=== PATIENT | female | born 1945 | race Caucasian/White ===

== ENCOUNTER 2018-11-08 18:23 | Emergency (ER) | payer MEDICARE, SELFPAY ==
[2018-11-08 18:24] VITALS: BP 166/71; PULSE 65; PULSE 68; RESP 16; RESP 18; TEMP 36.8; O2SAT 93; BMI 19.8
--- NOTE | 2018-11-08 20:08 | CT_ITS ---
STUDY: CT BRAIN WITHOUT CONTRAST REASON FOR EXAM: Female, 73 years old. FALL, ETOH, FOUND FACE DOWN IN DRIVEWAY WITH BRUISING AND BLEEDING OF FACE RADIATION DOSAGE (If Supplied By Facility): CTDIvol = ( 44.99 ) mGy, DLP = ( 762.36 ) mGycm TECHNIQUE: Transaxial CT imaging of the brain was performed without administration of intravenous contrast material. Individualized dose optimization techniques were used for this CT. COMPARISON: No relevant priors. FINDINGS: There is localized soft tissue swelling of the anterior scalp. Normal calvarium. There is mild cerebral atrophy with widening of the extra-axial spaces and ventricular dilatation. There are areas of decreased attenuation within the white matter tracts of the supratentorial brain, consistent with microvascular disease changes. Normal basal ganglia and thalami. Normal brainstem. Normal cerebellum. There is no intracranial hemorrhage. There are no findings of an acute ischemic infarction. Normal visualized paranasal sinuses. CT/Brain/Head without Contrast IMPRESSION: 1. No acute intracranial hemorrhage or mass effect. 2. Frontal scalp soft tissue swelling/hematoma. No underlying fracture Electronically Signed: Joseph Richmond MD (Brooks) at 20:37 EDT , Service support ,
[2018-11-08 20:34] VITALS: BP 176/74; PULSE 61
[2018-11-08] MEDS: Diphth,Pertuss(Acell),Tet Vac 0.5 ML Vial IM (20:35)
--- NOTE | 2018-11-08 21:14 | ED.VISSUMM ---
- ER Visit Summary Date of Service: 11/08/18 Chief Complaint: Fall History of Present Illness: The patient is a 73 F who presents with a fall that occurred today. Patient does not remember how she fell. She fell forward into the driveway. Patient landed on her face. The family that is here soraida was not there to witness the fall. Patient thinks she did have a brief loss of consciousness after the fall. Patient denies any paresthesias or weakness. Patient denies any nausea or vomiting. Patient denies any palpitations or lightheadedness prior to the fall. Physical Examination: Vital signs are stable. Patient is afebrile. Patient is in no acute distress. Cranial nerves II through XII are intact. There are no focal motor or sensory deficits noted. There is a hematoma of the forehead in the midline. There is an abrasion across the bridge of the nose. There is no active bleeding noted. There is also a contusion on the chin. Pupils are equal, round, and reactive to light bilaterally. Extraocular muscles are intact. Tympanic membranes are clear bilaterally with no hemotympanum. Nasal mucosa is pink and moist. There is no septal deviation or septal hematoma. Neck is supple. Trachea is midline. There is no JVD noted. Heart was regular rate and rhythm. Lungs are clear and equal bilaterally. Abdomen is soft and nontender. Test Results: CT scan of the brain was obtained. There is no acute intracranial abnormality. There is no fracture noted. This was interpreted by the radiologist myself. Emergency Department Course and Treatment: Patient was given a tetanus booster. Bacitracin dressing was applied to the nasal abrasion. Patient was instructed to use ice to the area. Patient was instructed to follow-up with her primary care physician in 5 to 7 days. Patient and family understood and were agreeable with the plan. All questions were answered. Disposition: Discharge home Impression: 1. Facial contusion 2. Nasal abrasion 3. Closed head injury This note was generated with [employer] dictation software. It may contain incorrect words, spelling, and punctuation that were not noted in review of the chart prior to signing ED Disposition - Plan for ED Patient: Disposition: Home or Assisted Living Diagnosis: Facial contusion, Nasal abrasion, Closed head injury Instructions: FALL, Uncertain Cause, HEAD INJURY, No Wake-Up (Adult), FACIAL CONTUSION, No Wakeup, Abrasion Referrals: Rio Oconnor MD [Primary Care Provider] - 3-5 Days
== END 2018-11-08 21:42 | disposition home or self-care (01) ==
PROVIDERS: Emergency Provider Emergency Medicine; Family Provider Family Medicine; PCP Family Medicine
DX: S00.31XA Abrasion of nose, initial encounter (principal); S00.83XA Contusion of other part of head, initial encounter; S09.90XA Unspecified injury of head, initial encounter; W18.30XA Fall on same level, unspecified, initial encounter; Y93.9 Activity, unspecified; Y92.89 Other specified places as the place of occurrence of the external cause; Y99.9 Unspecified external cause status
CPT/HCPCS: 70450; 90471; 90715; 99283

== ENCOUNTER 2020-01-15 13:30 | Outpatient (RCR) | payer MEDICARE, SELFPAY ==
--- NOTE | 2020-01-05 17:10 | HP.PTEVAL_ITS ---
Patient's Visit Information CURTIS JOLLY is a 74 year old F referred to Physical Therapy by TERRIE OLIVIER with a diagnosis of Gait instability. Date of Evaluation: 01/05/20 Physical Therapist: Johnnie Mcintyre, KEYURT, OCS, CSCS - Visit Plan Frequency: 2x /Week Duration: 4-6 Weeks Plan: 2x/week for 4 weeks for ... 1. gait training(pt to bring her walker). 2. Teach LE sink exercises and balance ex and get I at home. - Subjective Doesn't want to be here. Sees neurologist for dementia. Has not seen anybody for walking. No falls because she doesn't get out of chair. Spends day in chair watching tV. No exercises. No spinning. No numbness in legs. Walks to kitchen 20 feet max on own and has never fallen recently. Lives with dtr for the last year. Is on the first floor adn a couple to get in but leaves house very little and has help. SPINNING DOFFER with ambulation. Exhausted. Dresses self minus confusion. Bathroom on own. Sower with help in and out of the tub. Back hurts sometimes. - Objective A&O not place, yes date, yes name. Walks with SPINNING DOFFER from dtr with short choppy steps and fatigues easy, very dangerous. Uses cane but drags it and not safe. With wh walker is safest but still needs VC to take long steps and not let walker get out in fornt of her. Min A with cane and no aD, CGA with walker. Sit to stand I. stand to sit I. Stands in place with good balance, movmeent is the problem. Tired after 250 feet of walking. Strength of LE is 4-/5., Motor control in ankles with ev/inv is poor, aROM is WNL. HS and gastroc max tight at -40 90/90 test and 0 DF B. reflexes 2/3 patella and achilles. Sensation WNl to gross light touch. coordination to reciprocal toe tap minor deficits. Pt unable to tolerate FGA today as is unsafe and needs cues just to walk. - Goals Goal 1:: I appropr HEP to minimize future problems(LE strength adn baalnce adn walking) Goal Time Frame: 4-6 Weeks Goal 2:: Pt able to tolerate FGA and score 21/30 Goal Time Frame: 4-6 Weeks Goal 3:: Dtr and pt feel 50% improved in mobility safety. Goal Time Frame: 4-6 Weeks Goal 4:: Pt walk into and out of PT with appropriate AD mod I. Goal Time Frame: 4-6 Weeks Goal 5:: 25/80 LEFS score Goal Time Frame: 4-6 Weeks - Rehabilitation Potential Physical Therapy Diagnosis: Gait instability. Rehabilitation Potential: Fair - Anticipated Interventions Patient/Client Instruction: Educate patient on: Condition, Plan of Care For the Purpose of:: To improve muscle performance and motor function, To increase tolerance to activity/condition/position, To improve gait and locomotor functions Therapeutic Exercise to Include: Strength training, Flexibilty training, Gait and locomotor training, Neuromotor development For the Purpose of:: To improve muscle performance and motor function, To improve ability of physical actions for home/community/work/leisure, To improve gait and locomotor functions, To improve safety Thank you for the opportunity to evaluate your patient. For Medicare and Medicare HMO plans, please review the plan of care and approve it. It will need to be FAXED BACK to us at [phone] for Medicare purposes. For Medicare only, by signing this I certify the plan of care. Please let me know if there are questions or concerns regarding this plan of care. Physician Signature: Date:
--- NOTE | 2020-03-11 15:08 | HP.PTDCNRP_ITS ---
CURTIS JOLLY was seen in my office for initial evaluation on 01/05/20. The following Plan of Care was established for this patient: Initial Frequency: 2x /Week Initial Duration: 4-6 Weeks Patient/Client Instruction: Educate patient on: Condition, Plan of Care For the Purpose of:: To improve muscle performance and motor function, To increase tolerance to activity/condition/position, To improve gait and locomotor functions Therapeutic Exercise to Include: Strength training, Flexibilty training, Gait and locomotor training, Neuromotor development For the Purpose of:: To improve muscle performance and motor function, To i mprove ability of physical actions for home/community/work/leisure, To improve gait and locomotor functions, To improve safety This patient was last seen in our office 01/15/20. Pertinent comments regarding their Physical therapy will appear below: Pt seen 3 visits of POC and cancelled the rest of them. At this point, it has been nearly two months and I will discontinue due to nonattendance. At this point I will be discontinuing this patient from physical therapy. I would be happy to see this patient again in the future if found appropriate by the physician. Thank you! Johnnie Mcintyre, DPT, OCS, CSCS
== END 2020-01-15 19:00 | disposition home or self-care (01) ==
LOC: PT 13:30
PROVIDERS: PCP Family Medicine
DX: R26.81 Unsteadiness on feet (principal)
CPT/HCPCS: 97110; 97162

== ENCOUNTER 2023-02-17 16:11 | Inpatient (IN) | payer MEDICARE, SELFPAY ==
[2023-02-17 16:12] VITALS: BP 90/65; PULSE 114; RESP 19; TEMP 36.6; O2SAT 97
[2023-02-17 16:15] VITALS: BP 96/67
--- NOTE | 2023-02-17 19:23 | EX.ED.DYSGE1 ---
HPI History of Present Illness Chief Complaint: General Illness Narrative Narrative: 77-year-old female presenting with her mother concern for diarrhea. She had 2 episodes today. Daughter reports that she has been feeling good for couple of days and has been laying around. She has been eating and drinking is much. Daughter states that she complained of diarrhea today and had 2 episodes. Daughter help her clean up in the shower. Patient has not had any recent antibiotics. No fevers at home. No abdominal pain, chest pain. She has a mild cough but no dyspnea. The patient's daughter reports that her was sick this week with a viral illness. She does not know of any symptoms that he had but he slept a lot. Patient's daughter states that her recovered. He was not tested for anything. [facility] Medical History (Updated 02/18/23 @ 00:[address] Renetta Stein MD) Anxiety and depression Carotid disease, bilateral COPD (chronic obstructive pulmonary disease) Dementia Former tobacco use History of GI bleed History of TIAs HLD (hyperlipidemia) HTN (hypertension) Stage 3b chronic kidney disease (CKD) Home Medications alprazolam 0.25 mg tablet 0.25 mg PO DAILY PRN Anxiety 11/08/18 [History Last Taken Unknown] aspirin 81 mg chewable tablet 81 mg PO DAILY@0800 11/08/18 [History Last Taken Unknown] atenolol 25 mg tablet 25 mg PO DAILY 11/08/18 [History Last Taken Unknown] atorvastatin 80 mg tablet 80 mg PO DAILY 11/08/18 [History Last Taken Unknown] citalopram 40 mg tablet 40 mg PO DAILY 11/08/18 [History Last Taken Unknown] lisinopril 10 mg tablet 10 mg PO DAILY 11/08/18 [History Last Taken Unknown] Allergy/AdvReac Type Severity Reaction Status Date / Time No Known Allergies Allergy Verified 02/17/23 16:12 Family History (Updated 02/17/23 @ 22:[address] Renetta Stein MD) Mother Kidney disease Father Lymphoma Surgical History (Updated 02/17/23 @ 22:[address] Renetta Stein MD) History of carotid endarterectomy History of shoulder surgery Previous back surgery Social History (Updated 02/17/23 @ 22:[address] Renetta Stein MD) household members: none Smoking Status: Former smoker how long ago did patient quit smoking: Smoked 1.5 pack/day quitting 09/23/2007, smoked 40 years. alcohol intake: current alcohol intake frequency: 0-2 drinks per day substance use type: does not use ROS ROS ED Constitutional Constitutional ED: Denies chills, fever(s) or sweats Eyes Eyes: Denies blurry vision or change in vision ENT ENT ED: Denies ear pain, rhinorrhea or sore throat Cardiovascular Cardiovascular: Denies chest pain, palpitations or racing heartbeat Respiratory/Chest Respiratory/Chest: Reports cough; Denies dyspnea or sputum Gastrointestinal Gastrointestinal: Reports diarrhea; Denies abdominal pain, constipation or vomiting Genitourinary Genitourinary ED: Denies dysuria, hematuria or urinary frequency Musculoskeletal Musculoskeletal: Denies arthralgias, myalgias or neck pain Integumentary Denies abscess, Abrasions or rash Neurologic Neurologic: Denies headache(s), paresthesias or weakness Psychiatric Psychiatric: Denies anxiety, depression, suicidal ideation or suicidal thoughts Endocrine Endocrinology: Denies polydipsia or polyuria EXAM Physical Exam Const Vital Signs: 02/17/23 16:12 02/17/23 16:15 02/17/23 19:37 Temperature 97.8 F Temperature Source Temporal Pulse Rate 114 H Respiratory Rate 19 H Respiratory Effort Normal Respiratory Pattern Normal Blood Pressure 90/65 96/67 Blood Pressure Mean 73 76 Pulse Ox 97 Oxygen Delivery Method Room Air Oxygen Flow Rate (L/min) 02/17/23 21:06 02/17/23 21:09 02/17/23 23:36 Temperature 99.1 F Temperature Source Oral Pulse Rate 87 95 Respiratory Rate 22 H 22 H Respiratory Effort Respiratory Pattern Blood Pressure 136/74 H 150/78 H Blood Pressure Mean 94 102 Pulse Ox 84 100 94 Oxygen Delivery Method Room Air Nasal Cannula Room Air Oxygen Flow Rate (L/min) 2 Positive well nourished General Appearance ED: NAD; Negative for pallor HEENT Reports moist mucous membranes Eyes PERRL and EOMs intact bilaterally General Eye ED: Negative for pale conjunctiva or scleral icterus Neck no lymphadenopathy Chest Wall inspection of chest normal Resp normal respiratory effort Auscultation: Negative for rales, rhonchi or wheezes Cardio regular rate and regular rhythm GI normal to inspection, nondistended, normoactive bowel sounds Neuro oriented x3 and CN's II-XII intact bilaterally Sensorium / Orientation: alert Psych mental status grossly normal Skin no rashes or lesions noted General Skin Exam: Negative for jaundice or pallor MDM MDM MDM Narrative Medical decision making narrative: Patient presented with generalized weakness and diarrhea that started today. She does have any chest pain. She is not nauseous. Differential includes COVID, influenza, dehydration, electro normalities. CBC was obtained to assess white blood cell count, hemoglobin, platelets. BMP to assess renal function and electrolytes. Urinalysis to assess for UTI. There was a delay in collecting the urine. We did obtain a chest x-ray which showed no acute process. Patient was given IV fluids. Nursing staff did attempt to straight cath the patient and they had received no urine. Chest x-ray my interpretation is no acute process. COVID and influenza are negative. Since the patient has now become hypoxic and requiring oxygen I obtained a CT scan without contrast due to patient's renal function and this shows concern for endobronchial infection. Ambulated patient in the hallway however she had 2 people assist her and she could barely walk by herself. She refused to let go of the 2 staff that were holding her. Her pulse ox was down to 88%. Given this I will have her admitted to the hospital. Impression: 1. Diarrhea 2. Hypoxia 3. Debility 4. ANJU Lab Data Labs: Laboratory Results - last 24 hr 02/17/23 02/17/23 00:00 19:20 WBC 7.3 RBC 4.46 Hgb 12.8 Hct 41.8 MCV 93.7 MCH 28.7 MCHC 30.6 L RDW Std Deviation 45.0 H RDW Coeff of Ed 13.1 Plt Count 204 MPV 11.0 Sodium 139 Potassium 4.0 Chloride 102 Carbon Dioxide 26.0 Anion Gap 11 BUN 29 H Creatinine 2.43 H Estim Creat Clear Calc 15.51 Est GFR (MDRD) Af Amer 25 L Est GFR (MDRD) Non-Af 21 L BUN/Creatinine Ratio 11.9 Glucose 134 H Calcium 9.8 Urine Color Yellow Urine Clarity Clear Urine pH 6.0 Ur Specific [place] 1.020 Urine Protein 100 H Urine Glucose (UA) 50 H Urine Ketones 15 H Urine Occult Blood 250 H Urine Nitrite Negative Urine Bilirubin 1 H Urine Urobilinogen Normal Ur Leukocyte Esterase 500 H Radiography Diagnostic Testing: Clinical Impression(s) from Imaging Studies Chest X-Ray 02/17/23 19:40 IMPRESSION: There are no acute findings. Electronically Signed: Mitchell Rowland MD at 20:13 EST , Chest CT 02/17/23 22:19 IMPRESSION: Scattered endobronchial debris and peribronchial opacities suggesting endobronchial spread of infection. Left lower lobe volume loss likely representing partial lung resection left lower lobe. Dense calcifications right internal carotid artery suspicious for possible stenosis. Sliding hiatal hernia. Appearance suggesting low bone mineral density. Correlate with bone densitometry. Electronically Signed: Frank Black DO at 23:49 EST , Discharge Plan Triage Chief Complaint: General Illness ED Provider: Deshawn Colvin Dx/Rx/DC Orders Prescriptions: No Action atorvastatin 80 MG tablet 80 mg PO DAILY citalopram 40 MG tablet 40 mg PO DAILY atenolol 25 MG tablet 25 mg PO DAILY alprazolam 0.25 MG tablet 0.25 mg PO DAILY PRN (Reason: Anxiety) lisinopril 10 MG tablet 10 mg PO DAILY aspirin 81 MG tablet,chewable 81 mg PO DAILY@0800 Primary Care Provider: Rio Oconnor Referrals: Rio Oconnor MD [Primary Care Provider] -
[2023-02-17] MEDS: 0.9% Normal Saline (1000mL) 1,000 ML 1000 ML IV (19:35)
[2023-02-17 19:37] VITALS: BMI 18.6
--- NOTE | 2023-02-17 19:40 | RAD_ITS ---
STUDY: XR Chest 1 View 02/17/2023 7:39 PM REASON FOR EXAM: Female, 77 years old. cough COMPARISON: None TECHNIQUE: XR Chest 1 View FINDINGS: There is no demonstrated pleural abnormality. Right shoulder arthroplasty. Normal heart size. Calcifications noted in the mediastinum. Normal roc. Prominent appearing increased interstitial lung markings. Normal visualized pulmonary arteries. There is atherosclerotic calcification of the aortic arch with tortuosity. There are diffuse degenerative changes of the visualized thoracic spine. There is degenerative osteoarthritis of the bilateral shoulders. There are no acute findings of the upper abdomen. RAD/Chest 1 View (Portable) IMPRESSION: There are no acute findings. Electronically Signed: Mitchell Rowland MD at 20:13 EST ,
[2023-02-17 19:49] LABS: Hematocrit 41.8 % (37-47); Hemoglobin 12.8 g/dL (12.0-15.0); Mean Corp Hgb Conc 30.6 g/dL (32-36); Mean Corpuscular Hgb 28.7 pg (27.0-32.0); Mean Corpuscular Volume 93.7 fL (81-99); Platelet Count 204 K/mm3 (150-450); RBC Distribution Width CV 13.1 % (11.6-14.6); Red Blood Count 4.46 M/mm3 (4.2-5.4); White Blood Count 7.3 K/mm3 (4.4-11.0)
[2023-02-17 20:12] LABS: Anion Gap 11 (5-15); BUN 29 mg/dL (7-18); BUN/Creat Ratio 11.9 RATIO (10-20); Calcium,Total 9.8 mg/dL (8.5-10.1); Chloride 102 mmol/L (98-107); Creatinine, Serum 2.43 mg/dL (0.55-1.02); EST Glomerular Filtration Rate 21 mL/min (>60); Est Glom Filt Rate - Afr Amer 25 mL/min (>60); Estimated Creatinine Clearance 15.51 ml/min; Glucose 134 mg/dL (74-106); Sodium Level 139 mmol/L (136-145)
--- NOTE | 2023-02-17 20:24 | ED.RN ---
Addendum entered by Danielle Frazier 02/17/23 20:56: Another attempt to cath for urine with no success. Dr. Colvin notified. Original Note: Attempted to straight cath pt with no urine return.
[2023-02-17 21:06] VITALS: BP 136/74; PULSE 87; RESP 22; TEMP 37.3; O2SAT 84
[2023-02-17 21:09] VITALS: O2SAT 100
--- NOTE | 2023-02-17 21:09 | ED.RN ---
Pt resting at 84% on RA. Pt readjusted and brought up to 88%. Placed on 2L NC, now resting at 99%. Dr. Colvin notified.
--- NOTE | 2023-02-17 22:19 | CT_ITS ---
INDICATION: hypoxia EXAMINATION: CT CHEST WITHOUT CONTRAST - CT Chest W/O Contrast Injection TECHNIQUE: Helically acquired images were obtained of the chest. A radiation dose optimization technique was used for this scan. IV Contrast dosage and agent: None. CTDI volume of 7.76 mGy. DLP of 298.68 mGy*cm. COMPARISON: Chest x-ray February 17, 2023. FINDINGS: LUNGS, PLEURA AND LARGE AIRWAYS: Left lower lobe volume loss with likely partial left lower lobe resection. There are some peribronchial opacities, best seen in the left upper lobe, coronal image 176 and axial image 55 through 61 and sagittal image 226. There are some areas of mild peribronchial thickening with probable endobronchial debris, coronal image 167, left upper lobe. Also in the right lower lobe, axial image 158. Moderate calcification of the proximal airway castañeda. No consolidation. No nodular or mass. Moderate tracheobronchial calcifications most likely associated with age. THYROID: No thyroid lesions. HEART AND PERICARDIUM: Heart size is normal. No pericardial effusion. Mild to moderate coronary artery calcifications. VESSELS: Moderate thoracic aortic arch intimal calcifications and dense calcifications in the right internal carotid artery, incompletely visualized. Dense calcifications abdominal aorta involving the ostia of the superior mesenteric artery and renal arteries. MEDIASTINUM AND JEREL: No mediastinal or hilar adenopathy. Sliding hiatal hernia. No hiatal hernia. UPPER ABDOMEN: No acute pathology. BONES: No suspicious lytic or blastic abnormality. Subjective appearance of diffusely decreased bone mineral density. Multilevel degenerative disc and endplate changes. CT/Chest without Contrast IMPRESSION: Scattered endobronchial debris and peribronchial opacities suggesting endobronchial spread of infection. Left lower lobe volume loss likely representing partial lung resection left lower lobe. Dense calcifications right internal carotid artery suspicious for possible stenosis. Sliding hiatal hernia. Appearance suggesting low bone mineral density. Correlate with bone densitometry. Electronically Signed: Frank Black DO at 23:49 EST ,
[2023-02-17 23:36] VITALS: BP 150/78; PULSE 95; RESP 22; O2SAT 94
[2023-02-18] VITALS (9 sets, daily range): BP systolic 108–170; BP diastolic 59–91; PULSE 70–87; RESP 16–23; TEMP 36.7–37.3; O2SAT 88–99; BMI 18.3; BMI 18.6
[2023-02-18 00:11] LABS: Bacteria 0 SEEN /hpf (None Seen); Mucous, Urine 0 SEEN /hpf (<or=2+); Red Blood Cells-Urine 0 SEEN /hpf (0-5); Squamous Epithelial Cells - UA 0 SEEN /hpf (5-10)
[2023-02-18 00:20] LABS: Color, Urine Yellow (Yellow); Glucose, Dipstick 50 mg/dl (Normal); Ketone-Dipstick 15 mg/dl (Negative); Leukocyte Esterase-Dipstick 500 /ul (Negative); Nitrite-Dipstick Negative (Negative); Occult Blood-Urine 250 /ul (Negative); Protein-Dipstick 100 mg/dl (Negative); Urine Clarity Clear (Clear); Urine Urobilinogen Normal (Normal)
[2023-02-18 00:29] LABS: Urine Bilirubin Dipstick 1 mg/dL (Negative)
--- NOTE | 2023-02-18 00:33 | HP.PCM.HOS_ITS ---
HPI - General General Date of Admission: 02/18/23 Date of Service: 02/18/23 Chief Complaint: Cough, fatigue, malaise and now onset of diarrhea with associated lightheadedness, dizziness. HPI Narrative The patient is a 77 y/o F w/ PMHx: Hx prior GI bleed, COPD, Hx TIA, Dementia unclear type with unclear behavioral disturbance history, CKD stage IIIb (last noted in /.72 10/02/21), Carotid disease, HTN, HLD, Anxiety and Depression, Former tobacco use who presents to the [facility] ED on 02/17/23 with history of recent history of upper respiratory viral illness and her with onset over the last 2 to 3 days patient with onset herself of increased fatigue, malaise, decreased oral intake with now onset of diarrhea through the course of the day with no recent antibiotic therapies morning fevers or chills but he noted mild cough with mild dyspnea and given ongoing fatigue as well as mild lightheadedness and dizziness with activity prompted ED evaluation. Workup in the ED included T97.8, heart rate 114, BP 90/65 with most recent repeat 96/67, respiratory rate 19, 97% on room air--> however patient did desaturate down to 84% on room air with improvement to 100% on 2 L nasal cannula, CBC with WBC 7.3, hemoglobin 12.8, platelets 204 without differential performed, BMP with BUN/creatinine 29/2.43, glucose 134, chest x-ray with no acute cardiopulmonary findings, negative rapid SARS COVID and influenza antigen, urinalysis pending upon requested evaluation of patient, CT chest with scattered endobronchial debris and peribronchial opacities suggesting endobronchial spread of infection, left lower lobe volume loss likely representing partial lung resection of the left lower lobe, dense calcifications right internal carotid artery, sliding held hernia. In the ED patient administered 1 L normal saline. Ambulatory trial was attempted and patient was noted to be 88% on room air however she was very minimally able to even do anything and needed a two-person assist. [facility] Medical History (Updated 02/18/23 @ 00:[address] Renetta Stein MD) Anxiety and depression Carotid disease, bilateral COPD (chronic obstructive pulmonary disease) Dementia Former tobacco use History of GI bleed History of TIAs HLD (hyperlipidemia) HTN (hypertension) Stage 3b chronic kidney disease (CKD) Home Medications alprazolam 0.25 mg tablet 0.25 mg PO DAILY PRN Anxiety 11/08/18 [History Last Taken Unknown] aspirin 81 mg chewable tablet 81 mg PO DAILY@0800 11/08/18 [History Last Taken Unknown] atenolol 25 mg tablet 25 mg PO DAILY 11/08/18 [History Last Taken Unknown] atorvastatin 80 mg tablet 80 mg PO DAILY 11/08/18 [History Last Taken Unknown] citalopram 40 mg tablet 40 mg PO DAILY 11/08/18 [History Last Taken Unknown] lisinopril 10 mg tablet 10 mg PO DAILY 11/08/18 [History Last Taken Unknown] Allergy/AdvReac Type Severity Reaction Status Date / Time No Known Allergies Allergy Verified 02/17/23 16:12 Family History (Updated 02/17/23 @ 22:[address] Renetta Stein MD) Mother Kidney disease Father Lymphoma Surgical History (Updated 02/17/23 @ 22:[address] Renetta Stein MD) History of carotid endarterectomy History of shoulder surgery Previous back surgery Social History (Updated 02/17/23 @ 22:[address] Renetta Stein MD) household members: none Smoking Status: Former smoker how long ago did patient quit smoking: Smoked 1.5 pack/day quitting 09/23/2007, smoked 40 years. alcohol intake: current alcohol intake frequency: 0-2 drinks per day substance use type: does not use ROS ROS Narrative Admission Review of Systems: CONSTITUTIONAL: No weight loss, fever, chills, + weakness or fatigue. HEENT: + Cough, congestion, rhinorrhea, sore throat, lightheadedness, dizziness. Eyes: No visual loss, blurred vision, double vision or yellow sclerae. Ears, Nose, Throat: No hearing loss, sneezing. SKIN: No rash or itching, lesions, wounds. CARDIOVASCULAR: No chest pain, chest pressure or chest discomfort, palpitations, edema, orthopnea, syncopal events. RESPIRATORY: + Shortness of breath, cough without marked sputum. No wheezing, hemoptysis. GASTROINTESTINAL: + Diarrhea, anorexia. No nausea, vomiting, abdominal pain, melena, BRBPR. GENITOURINARY: No dysuria, frequency, urgency or retention. NEUROLOGICAL: + Lightheadedness, dizziness. No headache, paralysis, ataxia, numbness or tingling in the extremities, focal weakness, change in bowel or bladder control, seizure. MUSCULOSKELETAL: + muscle, back pain, joint pain or stiffness. HEMATOLOGIC: No anemia. + Easy bleeding/bruising. LYMPHATICS: No enlarged nodes. No history of splenectomy. PSYCHIATRIC: + history of depression and anxiety. ENDOCRINOLOGIC: No reports of sweating, cold or heat intolerance. No polyuria or polydipsia. ALLERGIES: No history of asthma, hives, eczema or rhinitis. Vital Signs Vital Signs Vital Signs: 02/17/23 16:12 02/17/23 16:15 02/17/23 19:37 Temperature 97.8 F Temperature Source Temporal Pulse Rate 114 H Respiratory Rate 19 H Respiratory Effort Normal Respiratory Pattern Normal Blood Pressure 90/65 96/67 Blood Pressure Mean 73 76 Pulse Ox 97 Oxygen Delivery Method Room Air Oxygen Flow Rate (L/min) 02/17/23 21:06 02/17/23 21:09 02/17/23 23:36 Temperature 99.1 F Temperature Source Oral Pulse Rate 87 95 Respiratory Rate 22 H 22 H Respiratory Effort Respiratory Pattern Blood Pressure 136/74 H 150/78 H Blood Pressure Mean 94 102 Pulse Ox 84 100 94 Oxygen Delivery Method Room Air Nasal Cannula Room Air Oxygen Flow Rate (L/min) 2 Weight Weight: 108 lb 3.951 oz Body Mass Index (BMI) 18.6 Physical Exam Narrative Physical Examination: General: Awake, alert, oriented to self, place and some recent events, does have underlying dementia but communicating well, remains cooperative, seated upright in the ED bed, fatigued appearing. Skin: Normal color, normal turgor, no icterus, no cyanosis except occasional staged ecchymoses. HEENT: AT/NC, EOMI, PERRLA, dry MM, no carotid bruits or JVD noted. Lungs: Diminished, greater bases, mildly increased respiratory rate but no distress, no appreciated rales, ronchi or wheezing. Heart: Regular rate and rhythm; no gallop, rub audible. Abdomen: Soft, despite recent history of diarrhea NTTP, no marked distention, hyperactive BS, no appreciated HSM. Extremities: No cyanosis, no clubbing, mild peripheral ankle nonpitting edema present. Neurological: Patient awake, alert, oriented as noted, cognitive function decreased baseline with some cognitive decline given underlying dementia, suspect near intact; pupils equally reactive to light and accommodation, cranial nerves grossly normal, moving all 4 extremities, no focal deficits, strength severely globally decreased secondary to acute presentation and underlying comorbidities. Psychiatric: Affect appears flat, fatigued, no acute evidence of depressive or anxiety feelings but does have underlying history. Results Lab / Micro Data 02/17/23 19:20 02/17/23 19:20 Labs: Laboratory Results - last 24 hr 02/17/23 00:00: Urine Color Yellow, Urine Clarity Clear, Urine pH 6.0, Ur Specific [place] 1.020, Urine Protein 100 H, Urine Glucose (UA) 50 H, Urine Ketones 15 H, Urine Occult Blood 250 H, Urine Nitrite Negative, Urine Bilirubin 1 H, Urine Urobilinogen Normal, Ur Leukocyte Esterase 500 H 02/17/23 19:20: WBC 7.3, RBC 4.46, Hgb 12.8, Hct 41.8, MCV 93.7, MCH 28.7, MCHC 30.6 L, RDW Std Deviation 45.0 H, RDW Coeff of Ed 13.1, Plt Count 204, MPV 11.0, Sodium 139, Potassium 4.0, Chloride 102, Carbon Dioxide 26.0, Anion Gap 11, BUN 29 H, Creatinine 2.43 H, Estim Creat Clear Calc 15.51, Est GFR (MDRD) Af Amer 25 L, Est GFR (MDRD) Non-Af 21 L, BUN/Creatinine Ratio 11.9, Glucose 134 H, Calcium 9.8 Micro: Microbiology 02/17/23 17:17 Nasal Secretion SARS-CoV-2 & FLU Antigen (Rapid) - Final Imagaing Radiology Impression Chest X-Ray 02/17/23 19:40 IMPRESSION: There are no acute findings. Electronically Signed: Mitchell Rowland MD at 20:13 EST Reading Location ID and State: [facility] / [place] , Service support , Chest CT 02/17/23 22:19 IMPRESSION: Scattered endobronchial debris and peribronchial opacities suggesting endobronchial spread of infection. Left lower lobe volume loss likely representing partial lung resection left lower lobe. Dense calcifications right internal carotid artery suspicious for possible stenosis. Sliding hiatal hernia. Appearance suggesting low bone mineral density. Correlate with bone densitometry. Electronically Signed: Frank Black DO at 23:49 EST , Assessment & Plan Assessment/Plan (1) Acute viral syndrome: (2) Hypoxia: PLAN: Plan The patient is a 77 y/o F w/ PMHx: Hx prior GI bleed, COPD, Hx TIA, Dementia unclear type with unclear behavioral disturbance history, CKD stage IIIb (last noted in [id number]/1.72 10/02/21), Carotid disease, HTN, HLD, Anxiety and Depression, Former tobacco use who presents to the [facility] ED on 02/17/23 with history of recent history of upper respiratory viral illness and her with onset over the last 2 to 3 days patient with onset herself of increased fatigue, malaise, decreased oral intake with now onset of diarrhea through the course of the day with no recent antibiotic therapies morning fevers or chills but he noted mild cough but no dyspnea and given ongoing fatigue as well as mild lightheadedness and dizziness with activity prompted ED evaluation. #1. Acute viral syndrome with mild cough, fatigue, malaise and now onset of diarrhea with associated lightheadedness, dizziness with mild hypotension with C T chest demonstrating scattered endobronchial debris and peribronchial opacity suggesting endobronchial spread of infection concurrently with acute hypoxia (86% on RA with ambulatory trial asnoted) complicated by underlying COPD: Will admit to medical surgical floor, maintain on oxygen with wean as tolerated to room air, maintain on ATC budesonide therapy, PRN albuterol, HOB, IS parameters, continue judicious hydration, will request enteric and C. difficile to be cautious although given history of also recently ill suspect more viral syndrome plus the respiratory component, requested full respiratory viral panel and COVID PCR, continue diet however if any intolerance low threshold to transition back to clears, PT/OT/case management consulted for discharge planning. If work-up concerning for bacterial etiology certainly low threshold to add abx, procalcitonin requested. #2. Acute Renal Insufficiency on CKD stage IIIb: Secondary to GI losses. Admission BUN/Cr 29/2.43, last noted in [facility] system with BUN/Cr 25/1.72 10/02/21 thus will judiciously hydrate, hold nephrotoxic medications and repeat chemistry in AM. #3. Hypertension: Will hold hypertensive regimen given hypotension with GI losses, add back once appropriate. #4. Hyperlipidemia: We will continue patient on statin therapy. #5. Anxiety and depression: We will continue patient home citalopram and low- dose alprazolam regimen. #6. Carotid disease: s/p left common carotid and internal carotid endarterectomy, most recent noted evaluation per [facility] records [facility] 12/07/21 with abnormal waveforms suggestive of more proximal disease and compared to prior right ICA previously 60 to 79%, unable to achieve degree of stenosis likely secondary to shadowing plaque with increased velocities #7. Former tobacco use: Encourage continued tobacco cessation. #8. Dementia, unclear type with unclear behavioral disturbance history: Per review of medications in the [facility] system does not appear to be on any chron ic regimen, maintain on fall precaution, therapies as well as case management consulted for discharge planning. #9. History of TIA: We will continue patient home aspirin, statin, temporally holding hypertensive regimen given hypotension, add back once appropriate. #10. DVT prophylaxis: Heparin. #11. CODE status: Patient AWA is her daughter and living will is she believes in place. Discussed CODE status at length including difference between FULL code, DNR-CCA and DNR-CC status. Following discussions about the differences in these status, requested Full Code status. Advanced Care Planning Face to Face Time: 16 minutes. Charges/Coding Visit Charges Inpatient E&M: 04450 Init Hosp L3 Procedures Hospitalists Procedures: 14997 Advncd Care Plan 30 Min
[2023-02-18 01:17] LABS: White Blood Cells 5-10 SEEN /hpf (0-5)
[2023-02-18] MEDS: 0.9% Saline Lock 10 ML Syringe IV (02:05)
[2023-02-18] MEDS: 0.9% Normal Saline (1000mL) 1,000 ML 100 ML IV (02:06)
[2023-02-18] MEDS: Pantoprazole Sodium 40 MG Tablet PO ×2 (02:15→09:58)
[2023-02-18 05:36] LABS: Absolute Lymphocyte Count 0.94 X10^3/uL (0.83-4.51); Absolute Neutrophil Count 3.5 X10^3/uL (2.0-7.7); Basophil# 0.01 X10^3/uL; Basophil% 0.2 % (0-1); Hematocrit 31.1 % (37-47); Hemoglobin 9.4 g/dL (12.0-15.0); Lymphocyte # 0.94 X10^3/ul (0.83-4.51); Lymphocyte % 19.4 % (19-41); Mean Corp Hgb Conc 30.2 g/dL (32-36); Mean Corpuscular Hgb 28.4 pg (27.0-32.0); Mean Platelet Vol. 10.8 fl (6.2-12.0); Monocyte# 0.41 X10^3/uL; Monocyte% 8.5 % (0-10); NRBC Flagged by Analyzer 0 % (0-5); Neutrophil # 3.47 X10^3/uL (2.7-7.7); Neutrophil % 71.5 % (47-70); Platelet Count 161 K/mm3 (150-450); RBC Distribution Width CV 13.1 % (11.6-14.6); Red Blood Count 3.31 M/mm3 (4.2-5.4); White Blood Count 4.9 K/mm3 (4.4-11.0)
[2023-02-18 06:01] LABS: Procalcitonin 0.33 ng/mL (0.00-0.09)
[2023-02-18 06:15] LABS: ALB/GLOB Ratio 0.9 RATIO (0.9-2.4); AST(SGOT) 52 U/L (15-37); Alanine Aminotransfer ALT/SGPT 17 U/L (13-56); Albumin, Serum 2.7 g/dL (3.2-5.0); Alkaline Phosphatase 68 U/L (45-117); Anion Gap 10 (5-15); BUN 33 mg/dL (7-18); BUN/Creat Ratio 14.8 RATIO (10-20); Calcium,Total 7.8 mg/dL (8.5-10.1); Chloride 108 mmol/L (98-107); Creatinine, Serum 2.23 mg/dL (0.55-1.02); EST Glomerular Filtration Rate 23 mL/min (>60); Est Glom Filt Rate - Afr Amer 28 mL/min (>60); Estimated Creatinine Clearance 16.72 ml/min; Globulin 3.1 g/dL (2.2-4.2); Glucose 80 mg/dL (74-106); Potassium 3.7 mmol/L (3.5-5.1); Protein, Total 5.8 g/dL (6.4-8.2); Sodium Level 142 mmol/L (136-145)
--- NOTE | 2023-02-18 08:44 | PN.HOSP_ITS ---
Reason for Visit Reason for Visit: Diagnoses Viral infection, unspecified (02/18/23) Hypoxemia (02/18/23) Subjective Subjective Patient is a 77-year-old lady admitted with progressive generalized weakness as well as cough and diarrhea. An assessment of acute viral syndrome made admitted to a monitored bed. Subsequent assay came back positive for COVID-19 Objective Data Objective Data Vital Signs: Vital Signs Temp Pulse Resp BP Pulse Ox O2 Del Method O2 Flow Rate 98.2 F 70 18 155/65 H 95 Nasal Cannula 2 02/18/23 06:19 02/18/23 06:19 02/18/23 06:19 02/18/23 06:19 02/18/23 08:16 02/18/23 08:16 02/18/23 08:16 Oxygen Flow Rate (L/min) 2 Oxygen Delivery Method Nasal Cannula Weight: 49.1 kg Body Mass Index (BMI) 18.6 Intake & Output: Intake and Output for Last 24 Hours 02/16/23 02/17/23 02/18/23 23:59 23:59 23:59 Intake Total 1000 / 1000 60 / 60 Balance 1000 / 1000 60 / 60 Lab / Micro Data 02/18/23 04:45 02/18/23 04:45 Labs: Laboratory Results - last 24 hr 02/17/23 00:00: Urine Color Yellow, Urine Clarity Clear, Urine pH 6.0, Ur Specific [place] 1.020, Urine Protein 100 H, Urine Glucose (UA) 50 H, Urine Ketones 15 H, Urine Occult Blood 250 H, Urine Nitrite Negative, Urine Bilirubin 1 H, Urine Urobilinogen Normal, Ur Leukocyte Esterase 500 H, Urine RBC 0 SEEN, Urine WBC 5-10 SEEN, Ur Squamous Epith Cells 0 SEEN, Urine Bacteria 0 SEEN, Urine Mucus 0 SEEN 02/17/23 19:20: WBC 7.3, RBC 4.46, Hgb 12.8, Hct 41.8, MCV 93.7, MCH 28.7, MCHC 30.6 L, RDW Std Deviation 45.0 H, RDW Coeff of Ed 13.1, Plt Count 204, MPV 11.0 , Sodium 139, Potassium 4.0, Chloride 102, Carbon Dioxide 26.0, Anion Gap 11, BUN 29 H, Creatinine 2.43 H, Estim Creat Clear Calc 15.51, Est GFR (MDRD) Af Amer 25 L, Est GFR (MDRD) Non-Af 21 L, BUN/Creatinine Ratio 11.9, Glucose 134 H, Calcium 9.8 02/18/23 04:45: WBC 4.9, RBC 3.31 L, Hgb 9.4 L, Hct 31.1 L, MCV 94.0, MCH 28.4, MCHC 30.2 L, RDW Std Deviation 45.0 H, RDW Coeff of Ed 13.1, Plt Count 161, MPV 10.8, Immature Gran % (Auto) 0.400, Neut % (Auto) 71.5 H, Lymph % (Auto) 19.4, Winkler % (Auto) 8.5, Eos % (Auto) 0.0, Baso % (Auto) 0.2, Absolute Neuts (auto) 3.5, Absolute Lymphs (auto) 0.94, Nucleated RBC % 0, Sodium 142, Potassium 3.7, Chloride 108 H, Carbon Dioxide 24.0, Anion Gap 10, BUN 33 H, Creatinine 2.23 H, Estim Creat Clear Calc 16.72, Est GFR (MDRD) Af Amer 28 L, Est GFR (MDRD) Non-Af 23 L, BUN/Creatinine Ratio 14.8, Glucose 80, Calcium 7.8 L, Total Bilirubin 0.3 0, AST 52 H, ALT 17, Alkaline Phosphatase 68, Total Protein 5.8 L, Albumin 2.7 L , Globulin 3.1, Albumin/Globulin Ratio 0.9, Procalcitonin 0.33 H Micro: Microbiology 02/18/23 00:00 Urine, Clean Catch Legionella Antigen - Final 02/18/23 00:00 Urine, Clean Catch Streptococcus pneumoniae Antigen (M - Final 02/17/23 17:17 Nasal Secretion SARS-CoV-2 & FLU Antigen (Rapid) - Final Radiography Diagnostic Testing: Radiology Impression Chest X-Ray 02/17/23 19:40 IMPRESSION: There are no acute findings. Electronically Signed: Mitchell Rowland MD at 20:13 EST , Chest CT 02/17/23 22:19 IMPRESSION: Scattered endobronchial debris and peribronchial opacities suggesting endobronchial spread of infection. Left lower lobe volume loss likely representing partial lung resection left lower lobe. Dense calcifications right internal carotid artery suspicious for possible stenosis. Sliding hiatal hernia. Appearance suggesting low bone mineral density. Correlate with bone densitometry. Electronically Signed: Frank Black, DO at 23:49 EST , Physical Exam Narrative GENERAL: Patient appears ill looking HEENT: Atraumatic; normocephalic EYES; Anicteric, Normal Conjunctiva NECK; supple, normal thyroid, RESPIRATORY: Diminished to auscultation CARDIOVASCULAR: Regular S1 S2, GI: soft, normoactive bowel sounds, : No Renal angle tenderness; EXTREMITIES: No edema, no clubbing, MUSCULOSKELETAL: no muscle wasting NEURO: Awake; no lateralizing signs. SKIN: No Rash PSYCH; Flat affect Assessment & Plan Assessment/Plan (1) Acute viral syndrome: (2) Hypoxia: PLAN: Plan Patient is a 77-year-old lady admitted with progressive generalized weakness as well as cough and diarrhea. An assessment of acute viral syndrome made admitted to a monitored bed. Subsequent assay came back positive for COVID-19 1. Acute COVID-19 infection ? Admitted to a monitored bed for symptom management 2. Physical deconditioning - Requested for PT OT eval and delinquency prevention social worker to assist with discharge planning 3. Acute kidney injury ? Patient baseline creatinine from clinic saying from 10/02/2021 was 1.72 creatinine on admission was 2.43 admitted to a monitored bed being managed with IV fluid with subsequent monitoring of daily electrolytes ordered. Potential nephrotoxic medications including lisinopril held 4. Chronic kidney disease stage IIIb ? Patient presented with ANJU management as discussed above 5. Essential hypertension ? Patient is on atenolol as well as lisinopril lisinopril held in view of above we will continue with atenolol 6. Dyslipidemia -Patient is on statin therapy, continued at home dose 7. Depression with anxiety ? Patient is on citalopram as well as alprazolam did continue 8. Carotid disease s/p left common carotid and internal carotid endarterectomy, patient is on antiplatelet therapy continued 9. COPD ? Currently not in exacerbation bronchodilator treatment as needed 10. Dementia, unclear type with unclear behavioral disturbance history supportive care 11. DVT prophylaxis ? SC heparin Time spent in the patient's overall evaluation,decision-making process, review of diagnostic data, adjustment of management, discussion with other providers, nursing nursing and ancillary staff involved in patient's care documentation, 55 Minutes Charges/Coding Visit Charges Inpatient E&M: 62446 Subs Hosp L3
[2023-02-18] MEDS: Aspirin 81 MG TAB.CHEW PO (09:58)
[2023-02-18] MEDS: Heparin Injection (Vial) 5,000 UNIT/ML VIAL 5000 UNIT SC ×2 (09:58→21:56)
[2023-02-18] MEDS: Citalopram 40 MG TABLET PO (09:58)
--- NOTE | 2023-02-18 16:26 | CASEMGMT ---
RONALD GARCIA Discharge Planning Assessment: Noted documentation of pt with hx of dementia and not oriented/confused. Call placed to pt's daughter Gina for assessment completion. This RN RADHA introduced self and role at [facility] to daughter who voiced understanding and was agreeable to participating in assessment. Care providers, pharmacy, and demographics verified. Admitting dx: ANJU TOSCANO Strata: 1 PCP: Elvin (daughter states she has difficulty getting pt to attend visits) Specialists: none Preferred Pharmacy: [facility] [place] Insurance: [facility] Prescription Benefit: yes LNOK: daughter Tiffanie Living Arrangements: Pt lives with her daughter Tiffanie and 11yo granddaughter in a single story home with two steps to enter w/handrail. Per daughter pt does need assistance with stairs. Daughter states she assists pt with bathing by providing the washcloths, soap, helping pt get in and out of the shower. Pt is able to physically wash herself. Daughter states pt is unable to complete IADLs and daughter completes all stating pt's dementia prohibits pt from recalling how to perform tasks such as laundry. Pt's daughter manages pt's meds. Transportation: daughter provides DME: Pt has a cane, walker and w/c but does not use. Pt has a shower chair, grab bars and hand held shower. HHC/SNF: denies any previous providers Goal/Plan: Discussed need for further therapy at discharge and ability of pt to return home. Pt's daughter states she works during the day and pt is home alone during this time. At baseline, pt is able to navigate the home and prepare simple meals when alone. Discussed possible need for SNF at discharge and pt's daughter is open to this idea although states pt has adamantly refused in the past despite daughter's attempts to encourage. Plan: TBD. PT eval pending. Likely will need SNF at discharge. Anya Brian RN CM
[2023-02-18] MEDS: Atorvastatin Calcium 80 MG Tablet PO (21:56)
[2023-02-18] MEDS: guaiFENesin 10 ML UDC (200MG/10ML) 20 ML PO (22:06)
[2023-02-19] VITALS (8 sets, daily range): BP systolic 143–188; BP diastolic 55–95; PULSE 78–100; RESP 16–18; TEMP 36.6–36.9; O2SAT 93–98; BMI 18.5
[2023-02-19] MEDS: hydrALAZINE 20 MG/ML Vial 10 MG IV (03:42)
[2023-02-19] MEDS: guaiFENesin 10 ML UDC (200MG/10ML) 20 ML PO ×2 (03:42→11:43)
[2023-02-19] MEDS: 0.9% Saline Lock 10 ML Syringe IV (03:43)
[2023-02-19 06:05] LABS: Absolute Lymphocyte Count 1.74 X10^3/uL (0.83-4.51); Absolute Neutrophil Count 2.3 X10^3/uL (2.0-7.7); Basophil# 0.04 X10^3/uL; Basophil% 0.9 % (0-1); Eosinophil# 0.02 X10^3/uL; Eosinophils% 0.4 % (0-5); Hematocrit 33.8 % (37-47); Hemoglobin 10.3 g/dL (12.0-15.0); Lymphocyte # 1.74 X10^3/ul (0.83-4.51); Lymphocyte % 38.8 % (19-41); Mean Corp Hgb Conc 30.5 g/dL (32-36); Mean Corpuscular Hgb 28.5 pg (27.0-32.0); Mean Corpuscular Volume 93.6 fL (81-99); Mean Platelet Vol. 10.7 fl (6.2-12.0); Monocyte# 0.33 X10^3/uL; Monocyte% 7.4 % (0-10); NRBC Flagged by Analyzer 0 % (0-5); Neutrophil # 2.34 X10^3/uL (2.7-7.7); Neutrophil % 52.3 % (47-70); Platelet Count 186 K/mm3 (150-450); RBC Distribution Width CV 13.1 % (11.6-14.6); RBC Distribution Width SD 44.8 fl (35.1-43.9); Red Blood Count 3.61 M/mm3 (4.2-5.4); White Blood Count 4.5 K/mm3 (4.4-11.0)
[2023-02-19 06:26] LABS: Anion Gap 7 (5-15); BUN 35 mg/dL (7-18); BUN/Creat Ratio 15.7 RATIO (10-20); Calcium,Total 8.5 mg/dL (8.5-10.1); Chloride 110 mmol/L (98-107); Creatinine, Serum 2.23 mg/dL (0.55-1.02); EST Glomerular Filtration Rate 23 mL/min (>60); Est Glom Filt Rate - Afr Amer 28 mL/min (>60); Estimated Creatinine Clearance 16.86 ml/min; Glucose 80 mg/dL (74-106); Magnesium 1.5 mg/dL (1.6-2.6); Phosphorus 3.5 mg/dL (2.5-4.9); Potassium 3.4 mmol/L (3.5-5.1); Sodium Level 142 mmol/L (136-145)
[2023-02-19] MEDS: Budesonide Respules 0.5 MG/2 ML AMPUL.NEB. INHALATION (07:04)
--- NOTE | 2023-02-19 07:33 | PCM.PN.HOSP ---
Reason for Visit Reason for Visit: Diagnoses Viral infection, unspecified (02/18/23) Hypoxemia (02/18/23) Subjective Subjective Viral respiratory panel came back positive for COVID. Currently being managed symptomatically. Objective Data Objective Data Vital Signs: Vital Signs Temp Pulse Resp BP Pulse Ox O2 Del Method O2 Flow Rate 98.4 F 100 16 146/55 H 94 Nasal Cannula 2 02/19/23 05:12 02/19/23 07:08 02/19/23 07:08 02/19/23 05:12 02/19/23 07:08 02/19/23 07:08 02/19/23 07:08 Oxygen Flow Rate (L/min) 2 Oxygen Delivery Method Nasal Cannula Weight: 49 kg Body Mass Index (BMI) 18.5 Intake & Output: Intake and Output for Last 24 Hours 02/17/23 02/18/23 02/19/23 23:59 23:59 23:59 Intake Total 1000 / 1000 1830 / 1830 100 / 100 Output Total 700 / 700 Balance 1000 / 1000 1130 / 1130 100 / 100 Lab / Micro Data 02/19/23 05:10 02/19/23 05:10 Labs: Laboratory Results - last 24 hr 02/19/23 05:10: WBC 4.5, RBC 3.61 L, Hgb 10.3 L, Hct 33.8 L, MCV 93.6, MCH 28.5, MCHC 30.5 L, RDW Std Deviation 44.8 H, RDW Coeff of Ed 13.1, Plt Count 186, MPV 10.7, Immature Gran % (Auto) 0.200, Neut % (Auto) 52.3, Lymph % (Auto) 38.8, [place] % (Auto) 7.4, Eos % (Auto) 0.4, Baso % (Auto) 0.9, Absolute Neuts (auto) 2.3, Absolute Lymphs (auto) 1.74, Nucleated RBC % 0, Sodium 142, Potassium 3.4 L, Chloride 110 H, Carbon Dioxide 25.0, Anion Gap 7, BUN 35 H, Creatinine 2.23 H, Estim Creat Clear Calc 16.86, Est GFR (MDRD) Af Amer 28 L, Est GFR (MDRD) Non-Af 23 L, BUN/Creatinine Ratio 15.7, Glucose 80, Calcium 8.5, Phosphorus 3.5, Magnesium 1.5 L Micro: Microbiology 02/18/23 02:30 Mucosa - Nasopharyngeal Coronavirus COVID-19 PCR - Final SARS-CoV-2 (COVID 19 PCR) 02/18/23 00:00 Urine, Clean Catch Legionella Antigen - Final 02/18/23 00:00 Urine, Clean Catch Streptococcus pneumoniae Antigen (M - Final 02/17/23 17:17 Nasal Secretion SARS-CoV-2 & FLU Antigen (Rapid) - Final Physical Exam Narrative GENERAL: Patient appears ill looking HEENT: Atraumatic; normocephalic EYES; Anicteric, Normal Conjunctiva NECK; supple, normal thyroid, RESPIRATORY: Diminished to auscultation CARDIOVASCULAR: Regular S1 S2, GI: soft, normoactive bowel sounds, : No Renal angle tenderness; EXTREMITIES: No edema, no clubbing, MUSCULOSKELETAL: no muscle wasting NEURO: Awake; no lateralizing signs. SKIN: No Rash PSYCH; Flat affect Assessment & Plan Assessment/Plan (1) Acute viral syndrome: (2) Hypoxia: PLAN: Plan Patient is a 77-year-old lady admitted with progressive generalized weakness as well as cough and diarrhea. An assessment of acute viral syndrome made admitted to a monitored bed. Subsequent assay came back positive for COVID-19 1. Acute COVID-19 infection ? Admitted to a monitored bed for symptom management 2. Physical deconditioning - Requested for PT OT eval and mental health social worker to assist with discharge planning 3. Acute kidney injury ? Patient baseline creatinine from clinic saying from 10/02/2021 was 1.72 creatinine on admission was 2.43 admitted to a monitored bed being managed with IV fluid with subsequent monitoring of daily electrolytes ordered. Potential nephrotoxic medications including lisinopril held 4. Chronic kidney disease stage IIIb ? Patient presented with ANJU management as discussed above 5. Essential hypertension ? Patient is on atenolol as well as lisinopril lisinopril held in view of above we will continue with atenolol 6. Dyslipidemia -Patient is on statin therapy, continued at home dose 7. Depression with anxiety ? Patient is on citalopram as well as alprazolam did continue 8. Carotid disease s/p left common carotid and internal carotid endarterectomy, patient is on antiplatelet therapy continued 9. COPD ? Currently not in exacerbation bronchodilator treatment as needed 10. Dementia, unclear type with unclear behavioral disturbance history supportive care 11. DVT prophylaxis ? SC heparin 12. Hypokalemia ? Corrected for protocol 13. Physical deconditioning - Requested for PT OT eval and mental health social worker to assist with discharge planning Time spent in the patient's overall evaluation,decision-making process, review of diagnostic data, adjustment of management, discussion with other providers, nursing nursing and ancillary staff involved in patient's care documentation, 35 Minutes Charges/Coding Visit Charges Inpatient E&M: 85342 Subs Hosp L2
[2023-02-19] MEDS: Pantoprazole Sodium 40 MG Tablet PO (08:54)
[2023-02-19] MEDS: Heparin Injection (Vial) 5,000 UNIT/ML VIAL 5000 UNIT SC (08:54)
[2023-02-19] MEDS: Citalopram 40 MG TABLET PO (08:54)
[2023-02-19] MEDS: Aspirin 81 MG TAB.CHEW PO (08:54)
[2023-02-19] MEDS: Potassium Chloride Oral Tablet 20 MEQ 40 MEQ PO (11:10)
--- NOTE | 2023-02-19 14:28 | CASEMGMT ---
Per Nursing admission questions patient does not have a Healthcare Power of Bunch Breaker or Healthcare Living Will. Patient declined information on documents. Leslie BOWERS
[2023-02-19] MEDS: Atorvastatin Calcium 80 MG Tablet PO (23:42)
[2023-02-20] VITALS (9 sets, daily range): BP systolic 135–176; BP diastolic 54–87; PULSE 89–109; RESP 16–18; TEMP 36.6–37; O2SAT 88–99; BMI 17.8
[2023-02-20 03:32] LABS: Absolute Lymphocyte Count 1.37 X10^3/uL (0.83-4.51); Absolute Neutrophil Count 2.9 X10^3/uL (2.0-7.7); Basophil# 0.02 X10^3/uL; Basophil% 0.4 % (0-1); Eosinophil# 0.04 X10^3/uL; Eosinophils% 0.8 % (0-5); Hematocrit 33.1 % (37-47); Hemoglobin 10.2 g/dL (12.0-15.0); Lymphocyte # 1.37 X10^3/ul (0.83-4.51); Lymphocyte % 28.8 % (19-41); Mean Corp Hgb Conc 30.8 g/dL (32-36); Mean Corpuscular Hgb 28.7 pg (27.0-32.0); Mean Platelet Vol. 10.8 fl (6.2-12.0); Monocyte# 0.43 X10^3/uL; Monocyte% 9.1 % (0-10); NRBC Flagged by Analyzer 0 % (0-5); Neutrophil # 2.88 X10^3/uL (2.7-7.7); Neutrophil % 60.7 % (47-70); Platelet Count 183 K/mm3 (150-450); RBC Distribution Width CV 13.1 % (11.6-14.6); Red Blood Count 3.56 M/mm3 (4.2-5.4); White Blood Count 4.8 K/mm3 (4.4-11.0)
[2023-02-20 03:56] LABS: Anion Gap 5 (5-15); BUN 34 mg/dL (7-18); BUN/Creat Ratio 16.9 RATIO (10-20); Calcium,Total 8.8 mg/dL (8.5-10.1); Chloride 111 mmol/L (98-107); Creatinine, Serum 2.01 mg/dL (0.55-1.02); EST Glomerular Filtration Rate 26 mL/min (>60); Est Glom Filt Rate - Afr Amer 31 mL/min (>60); Estimated Creatinine Clearance 18.71 ml/min; Glucose 102 mg/dL (74-106); Sodium Level 143 mmol/L (136-145)
[2023-02-20] MEDS: Budesonide Respules 0.5 MG/2 ML AMPUL.NEB. INHALATION (07:55)
[2023-02-20] MEDS: Pantoprazole Sodium 40 MG Tablet PO (10:01)
[2023-02-20] MEDS: Citalopram 40 MG TABLET PO (10:01)
[2023-02-20] MEDS: Aspirin 81 MG TAB.CHEW PO (10:01)
--- NOTE | 2023-02-20 15:56 | CASEMGMT ---
RONALD GARCIA called daughter to discuss discharge plans. Daughter agreeable to have patient come home at discharge with [facility]. Discharge planning lead to email list to daughter at . Daughter prefers [employer] for home oxygen. Daughter had no further questions or concerns. RONALD GARCIA updated hospitalist. CM to continue to follow this patient and plan for a safe discharge.
--- NOTE | 2023-02-20 16:13 | CASEMGMT ---
Discharge Planning A list of HH providers including quality and resource use data and consistent with the patient's preferred geographic region, medical needs, and insurance network were provided via email from the [facility] Guide erendira Zacarias, Discharge Planning Asst.
--- NOTE | 2023-02-20 16:22 | PN.HOSP_ITS ---
Reason for Visit Reason for Visit: Diagnoses Viral infection, unspecified (02/18/23) Hypoxemia (02/18/23) Subjective Subjective Patient was seen and examined today, according to nursing, she has a history of Alzheimer's dementia, patient does not carry on a conversation with this examiner, she does not appear to be in any distress. Patient is currently on 2 L of oxygen, according to case management, patient's family would like to take the patient home with home health-this can be arranged tomorrow. Patient positive for COVID-19 and influenza A. Objective Data Objective Data Vital Signs: Vital Signs Temp Pulse Resp BP Pulse Ox O2 Del Method O2 Flow Rate 98 F 89 18 153/87 H 98 Nasal Cannula 2 02/20/23 16:18 02/20/23 16:18 02/20/23 16:18 02/20/23 16:18 02/20/23 16:18 02/20/23 16:18 02/20/23 16:18 Oxygen Flow Rate (L/min) [ 2 AMBULATING with Oxygen #1] Oxygen Flow Rate (L/min) [At 2 REST with Oxygen] Oxygen Flow Rate (L/min) [At 0 REST on Room Air] Oxygen Flow Rate (L/min) 2 Oxygen Delivery Method Nasal Cannula Weight: 47.1 kg Body Mass Index (BMI) 17.8 Intake & Output: Intake and Output for Last 24 Hours 02/18/23 02/19/23 02/20/23 23:59 23:59 23:59 Intake Total 1830 / 1830 1050 / 1350 950 / 950 Output Total 700 / 700 Balance 1130 / 1130 1050 / 1350 950 / 950 Lab / Micro Data 02/20/23 03:05 02/20/23 03:05 Labs: Laboratory Results - last 24 hr 02/20/23 03:05: WBC 4.8, RBC 3.56 L, Hgb 10.2 L, Hct 33.1 L, MCV 93.0, MCH 28.7, MCHC 30.8 L, RDW Std Deviation 45.0 H, RDW Coeff of Ed 13.1, Plt Count 183, MPV 10.8, Immature Gran % (Auto) 0.200, Neut % (Auto) 60.7, Lymph % (Auto) 28.8, [place] % (Auto) 9.1, Eos % (Auto) 0.8, Baso % (Auto) 0.4, Absolute Neuts (auto) 2.9, Absolute Lymphs (auto) 1.37, Nucleated RBC % 0, Sodium 143, Potassium 4.0, Chloride 111 H, Carbon Dioxide 27.0, Anion Gap 5, BUN 34 H, Creatinine 2.01 H, Estim Creat Clear Calc 18.71, Est GFR (MDRD) Af Amer 31 L, Est GFR (MDRD) Non-Af 26 L, BUN/Creatinine Ratio 16.9, Glucose 102, Calcium 8.8 Micro: Microbiology 02/18/23 02:30 Mucosa - Nasopharyngeal Coronavirus COVID-19 PCR - Final SARS-CoV-2 (COVID 19 PCR) 02/18/23 02:30 Mucosa - Nasopharyngeal Respiratory Panel (PCR) - Final Influenza A (Subtype H1) 02/18/23 00:00 Urine, Clean Catch Legionella Antigen - Final 02/18/23 00:00 Urine, Clean Catch Streptococcus pneumoniae Antigen (M - Final 02/17/23 17:17 Nasal Secretion SARS-CoV-2 & FLU Antigen (Rapid) - Final Physical Exam Const alert and no apparent distress Constitutional Narrative: Patient appears confused General Appearance: cooperative, well kempt and well developed HEENT normocephalic, head/scalp atraumatic and moist oral mucous membranes Eyes PERRL, EOMs intact bilaterally and conjunctivae normal Neck supple, no JVD, thyroid normal and no carotid bruits General: trachea midline Resp normal respiratory effort, no retractions and no use of accessory muscles Resp Narrative: Inspiratory rales are noted to left lung abrbosa Auscultation: Negative for rales, rhonchi or wheezes Cardio regular rate, regular rhythm, S1 normal heart sound, S2 normal heart sound, no murmurs, no rub and no gallops GI normal to inspection, nondistended, normoactive bowel sounds, soft to palpation, non-tender and non-distended Extremity no clubbing, cyanosis or edema Skin no rashes or lesions noted General Skin Exam: no breakdown Neuro CN's II-XII intact bilaterally Neuro Narrative: Patient is confused Sensorium / Orientation: awake and alert Psych Psych Narrative: Patient is confused Assessment & Plan Assessment/Plan (1) Hypoxia: PLAN: Plan 1. COVID-19 pneumonia-I have placed the patient on dexamethasone starting today, since we do not know when her symptoms began, I will refrain from placing the patient on remdesivir #2 influenza A pneumonia-patient was placed on Tamiflu today #3 hypoxia secondary to #1 and #2-pulse ox will be monitored #3 dementia-believed to be Alzheimer's dementia-complicates care, medical course, recovery, and prognosis #4 essential hypertension-patient will remain on her current medication #5 chronic kidney disease stage V-complicates care, medical course, recovery, and prognosis Clinical time spent by myself addressing the patient's medical issues, reviewing all of her data, and collaborating with patient's care team: 35 minutes Charges/Coding Visit Charges Inpatient E&M: 28840 Subs Hosp L2
[2023-02-20] MEDS: dexAMETHasone 4 MG Tablet 6 MG PO (17:47)
[2023-02-20] MEDS: Oseltamivir Phosphate 30 MG Capsule PO (17:47)
[2023-02-20] MEDS: Atorvastatin Calcium 80 MG Tablet PO (21:04)
[2023-02-21] VITALS (7 sets, daily range): BP systolic 118–153; BP diastolic 78–94; PULSE 79–95; RESP 16; TEMP 36.3–37.1; O2SAT 87–99; BMI 18.0
[2023-02-21 05:33] LABS: Absolute Lymphocyte Count 0.58 X10^3/uL (0.83-4.51); Basophil# 0.01 X10^3/uL; Basophil% 0.4 % (0-1); Hemoglobin 10.3 g/dL (12.0-15.0); Lymphocyte # 0.58 X10^3/ul (0.83-4.51); Lymphocyte % 21.7 % (19-41); Mean Corp Hgb Conc 30.3 g/dL (32-36); Mean Corpuscular Hgb 28.6 pg (27.0-32.0); Mean Corpuscular Volume 94.4 fL (81-99); Mean Platelet Vol. 10.8 fl (6.2-12.0); Monocyte# 0.09 X10^3/uL; Monocyte% 3.4 % (0-10); NRBC Flagged by Analyzer 0 % (0-5); Neutrophil # 1.98 X10^3/uL (2.7-7.7); Neutrophil % 74.1 % (47-70); POSITIVE DIFFERENTIAL YES; POSITIVE MORPHOLOGY YES; Platelet Count 188 K/mm3 (150-450); RBC Distribution Width CV 13.2 % (11.6-14.6); RBC Distribution Width SD 45.5 fl (35.1-43.9); White Blood Count 2.7 K/mm3 (4.4-11.0)
[2023-02-21 05:37] LABS: Differential Indicated SCAN CRITERIA MET
[2023-02-21 05:52] LABS: Anion Gap 6 (5-15); BUN 38 mg/dL (7-18); BUN/Creat Ratio 20.3 RATIO (10-20); Calcium,Total 8.6 mg/dL (8.5-10.1); Chloride 111 mmol/L (98-107); Creatinine, Serum 1.87 mg/dL (0.55-1.02); EST Glomerular Filtration Rate 28 mL/min (>60); Est Glom Filt Rate - Afr Amer 34 mL/min (>60); Estimated Creatinine Clearance 19.33 ml/min; Glucose 160 mg/dL (74-106); Potassium 4.9 mmol/L (3.5-5.1); Sodium Level 144 mmol/L (136-145)
[2023-02-21 06:16] LABS: Differential Comment SCANNED
--- NOTE | 2023-02-21 08:02 | PCM.DC ---
Discharge Instructions Diet Discharge Diet: No restrictions Activity Discharge Activity: Return to Normal Activity Weight Bearing Status: Weight bearing as tolerated Dressing / Incision Call your doctor if you observe: Fever of 101 or Higher, Coldness, Increased Pain, Numbness or Tingling, Change in Color, Inability to urinate, Inability to have a bowel movement, Using more than 1 pad per hour, Shortness of breath, Dizziness, Fainting spells, Swelling in the ankles, Chest pain, Prolonged hiccupping, Increased palpitations (irregular heartbeat) and Calf discomfort Follow Up Care When: IN 2 WEEKS Test Results: Test results from this visit will be discussed in further detail at your follow-up appointment, if applicable. Discharge Plan Admission Admit Date/Time: 02/18/23 00:35 Primary Reason for Your Visit: COVID infection Attending Provider: Sharad Coronado Primary Care Provider: Rio Oconnor Consulting Providers: Renetta Stein; Tucker Ball; Rio Ybarra Discharge Orders/Prescriptions Prescriptions: New oseltamivir 30 mg Capsule 30 mg PO DAILY 3 Days Qty: 3 0RF dexamethasone 6 mg tablet 6 mg PO DAILY Qty: 8 0RF pseudoephedrine-guaifenesin [Mucinex D] 60-600 mg tablet extended release 12 hr 1 tab PO BID Qty: 14 0RF Continued atorvastatin 80 MG tablet 80 mg PO DAILY citalopram 40 MG tablet 20 mg PO DAILY atenolol 25 MG tablet 25 mg PO DAILY alprazolam 0.25 MG tablet 0.25 mg PO DAILY PRN (Reason: Anxiety) aspirin 81 MG tablet,chewable 81 mg PO DAILY@0800 omeprazole 20 mg capsule,delayed release(DR/EC) 20 mg PO DAILY Patient Comments: Take 1 capsule by mouth 30 minutes before breakfast. Held lisinopril 10 MG tablet 10 mg PO DAILY Hold Instructions: Hold for 1 week. Follow-up PCP Referrals / Follow Up: Rio Oconnor MD [Primary Care Provider] - Marcela Chris MD [Med Staff - Consulting] - Within 2 Weeks Disposition Disposition (needs filled in before D/C Order can be placed): Home, Self Care
[2023-02-21] MEDS: Citalopram 40 MG TABLET PO (09:51)
[2023-02-21] MEDS: dexAMETHasone 4 MG Tablet 6 MG PO (09:51)
[2023-02-21] MEDS: Acetaminophen 325 MG Tablet 650 MG PO (09:51)
[2023-02-21] MEDS: Aspirin 81 MG TAB.CHEW PO (09:51)
[2023-02-21] MEDS: guaiFENesin 10 ML UDC (200MG/10ML) 20 ML PO (09:52)
[2023-02-21] MEDS: Oseltamivir Phosphate 30 MG Capsule PO (09:52)
[2023-02-21] MEDS: Pantoprazole Sodium 40 MG Tablet PO (09:52)
--- NOTE | 2023-02-21 10:19 | PCM.DC.SUM ---
Providers Date of Admission: 02/18/23 Date of Discharge: 02/21/23 Primary Care Physician: Dr. Rio Oconnor MD Reason For Visit: ACUTE VIRAL SYNDROME,HYPOXIA Diagnosis Discharge Diagnosis (1) Hypoxia: Status: Acute Code(s): R09.02 - Hypoxemia Plan 77-year-old female was admitted for feeling very fatigued and weak, diarrhea for 3 days unable to stand up or get around. 1. COVID-19 pneumonia with mild hypoxia: Patient was started on dexamethasone 6 mg daily on 02/21. Patient is feeling better. Prescription given for 8 more days along with Mucinex DM. Patient not candidate for remdesivir mainly because CKD stage V and also mild symptoms of hypoxia. Chest CT individually reviewed and shows scattered endobronchial debris and peribronchial opacities suggesting endobronchial spread of infection, interstitial pneumonia #2 influenza A pneumonia-prescription for Tamiflu given. #3 Mild hypoxia due to COVID-19 pneumonia and influenza A pneumonia-pulse ox will be monitored #3 dementia-believed to be Alzheimer's dementia-complicates care, medical course, recovery, and prognosis #4 essential hypertension: Continue current medication #5 chronic kidney disease stage V-complicates care, medical course, recovery, and prognosis: Outpatient follow-up with the [facility] machine operator. Discharge medication reconciliation done. Discharge follow-up instructions completed. Discharge process discussed with the patient and all questions were answered to patient's satisfaction. Follow with PCP in 1 to 2 weeks Total time spent, exact 35 minutes on discharge meds reconciliation, examination, coordination of care with nurses and ancillary staff, review of imaging and blood test and discussion with the patient on follow-up instructions. Clinical Impression(s) from Imaging Studies Chest X-Ray 02/17/23 19:40 IMPRESSION: There are no acute findings. Chest CT 02/17/23 22:19 IMPRESSION: Scattered endobronchial debris and peribronchial opacities suggesting endobronchial spread of infection. Left lower lobe volume loss likely representing partial lung resection left lower lobe. Dense calcifications right internal carotid artery suspicious for possible stenosis. Sliding hiatal hernia. Appearance suggesting low bone mineral density. Correlate with bone densitometry. Medications at Discharge Home Medications alprazolam 0.25 mg tablet 0.25 mg PO DAILY PRN Anxiety 11/08/18 aspirin 81 mg chewable tablet 81 mg PO DAILY@0800 11/08/18 atenolol 25 mg tablet 25 mg PO DAILY 11/08/18 atorvastatin 80 mg tablet 80 mg PO DAILY 11/08/18 citalopram 40 mg tablet 20 mg PO DAILY anti-depressant 11/08/18 lisinopril 10 mg tablet 10 mg PO DAILY Bp 11/08/18 omeprazole 20 mg capsule,delayed release 20 mg PO DAILY GERD 02/18/23 dexamethasone 6 mg tablet 6 mg PO DAILY #8 tabs 02/21/23 oseltamivir 30 mg capsule 30 mg PO DAILY 3 days #3 caps 02/21/23 pseudoephedrine-guaifenesin ER 60 mg-600 mg tablet,extend release 12hr (Mucinex D) 1 tab PO BID cold symptoms #14 tabs 02/21/23 Physical Exam Narrative Seen and examined. Patient denies any fever or chills. Feeling overall better. Mild cough otherwise doing good. Patient walked to bathroom not feeling short of breath. Wants to go home. Physical exam General: Alert, Oriented x3, Cooperative HEENT: Atraumatic, PERRLA, EOMI, Normocephalic Oral: No Gingival or Mucosal Lesions/ Ulcerations Neck: Supple, No JVD, Negative Carotid Bruits Lungs: Air entry diminished in bilateral lung bases. Mild coarse crepitations. Cardiovascular: Regular rate, Regular Rhythm, Normal S1, Normal S2, No murmurs Abdomen: Bowel Sounds Present, Soft, Non Tender, Non-Distended : Denies dysuria. No renal angle tenderness. No suprapubic tenderness. Extremities: No edema, Capillary Refill Less than 3 Seconds Skin: No rashes, No breakdown Musculoskeletal: No Tenderness to Palpation of Joints or Extremities. ROM restricted. Neurological: Cranial nerves II-XII grossly intact, DTR 2+/4. No acute focal neurological deficit. Psych/Mental Status: Flat affect. Weight / BMI Weight Weight: 104 lb 15.04 oz Body Mass Index (BMI) 18.0 ABG / Lab / Microbiology Data 02/21/23 05:20 02/21/23 05:20 Laboratory: Laboratory Results - last 24 hr 02/21/23 05:20: WBC 2.7 L, RBC 3.60 L, Hgb 10.3 L, Hct 34.0 L, MCV 94.4, MCH 28.6, MCHC 30.3 L, RDW Std Deviation 45.5 H, RDW Coeff of Ed 13.2, Plt Count 188, MPV 10.8, Immature Gran % (Auto) 0.400, Neut % (Auto) 74.1 H, Lymph % (Auto) 21.7, [place] % (Auto) 3.4, Eos % (Auto) 0.0, Baso % (Auto) 0.4, Absolute Neuts (auto) 2.0, Absolute Lymphs (auto) 0.58 L, Nucleated RBC % 0, Differential Comment SCANNED, Diff Path Review July foll, Sodium 144, Potassium 4.9, Chloride 111 H, Carbon Dioxide 27.0, Anion Gap 6, BUN 38 H, Creatinine 1.87 H, Estim Creat Clear Calc 19.33, Est GFR (MDRD) Af Amer 34 L, Est GFR (MDRD) Non-Af 28 L, BUN/Creatinine Ratio 20.3 H, Glucose 160 H, Calcium 8.6 Microbiology: Microbiology 02/18/23 02:30 Mucosa - Nasopharyngeal Coronavirus COVID-19 PCR - Final SARS-CoV-2 (COVID 19 PCR) 02/18/23 02:30 Mucosa - Nasopharyngeal Respiratory Panel (PCR) - Final Influenza A (Subtype H1) 02/18/23 00:00 Urine, Clean Catch Legionella Antigen - Final 02/18/23 00:00 Urine, Clean Catch Streptococcus pneumoniae Antigen (M - Final 02/17/23 17:17 Nasal Secretion SARS-CoV-2 & FLU Antigen (Rapid) - Final D/C Instructions Discharge Diet: No restrictions Weight Bearing Status: Weight bearing as tolerated Call your doctor if you observe: Fever of 101 or Higher, Coldness, Increased Pain, Numbness or Tingling, Change in Color, Inability to urinate, Inability to have a bowel movement, Using more than 1 pad per hour, Shortness of breath, Dizziness, Fainting spells, Swelling in the ankles, Chest pain, Prolonged hiccupping, Increased palpitations (irregular heartbeat) and Calf discomfort When: IN 2 WEEKS Meaningful Use Info Meaningful Use Diagnoses (Choose all that apply): None applicable Discharge Plan Admission Admit Date/Time: 02/18/23 00:35 Primary Reason for Your Visit: COVID infection Attending Provider: Sharad Coronado Primary Care Provider: Rio Oconnor Consulting Providers: Renetta Stein; Tucker Ball; Rio Ybarra Discharge Orders/Prescriptions Prescriptions: New oseltamivir 30 mg Capsule 30 mg PO DAILY 3 Days Qty: 3 0RF dexamethasone 6 mg tablet 6 mg PO DAILY Qty: 8 0RF pseudoephedrine-guaifenesin [Mucinex D] 60-600 mg tablet extended release 12 hr 1 tab PO BID Qty: 14 0RF Continued atorvastatin 80 MG tablet 80 mg PO DAILY citalopram 40 MG tablet 20 mg PO DAILY atenolol 25 MG tablet 25 mg PO DAILY alprazolam 0.25 MG tablet 0.25 mg PO DAILY PRN (Reason: Anxiety) aspirin 81 MG tablet,chewable 81 mg PO DAILY@0800 omeprazole 20 mg capsule,delayed release(DR/EC) 20 mg PO DAILY Patient Comments: Take 1 capsule by mouth 30 minutes before breakfast. Held lisinopril 10 MG tablet 10 mg PO DAILY Hold Instructions: Hold for 1 week. Follow-up PCP Referrals / Follow Up: Marcela Chris MD [Med Staff - Consulting] - Within 2 Weeks Rio Oconnor MD [Primary Care Provider] - Disposition Disposition (needs filled in before D/C Order can be placed): Home, Self Care Charges/Coding Visit Charges Inpatient E&M: 93083 Disch Hosp >30min
[2023-02-21 10:49] LABS: Pathologist Review Reviewed
--- NOTE | 2023-02-21 12:21 | CASEMGMT ---
Addendum entered by Theresa Zacarias 02/22/23 10:03: Patient has been declined by [facility], [facility], and [facility]. RONALD GARCIA updated. Theresa Zacarias, Discharge Planning Asst. Addendum entered by Theresa Zacarias 02/21/23 14:52: Patient was declined by all agencies. Daughter consented to referrals being sent to remaining agencies on list. Patient and daughter ok with he being discharged prior to HH being established. RONALD GARCIA updated. Theresa Zacarias, Discharge Planning Asst. Original Note: Discharge Planning HH referrals sent via [facility] to [facility], [facility], and [facility]. Theresa Zacarias Discharge Planning Asst.
--- NOTE | 2023-02-21 12:29 | CASEMGMT ---
RONALD GARCIA NOTE: Pt being discharged home. Home O2 testing has been completed and pt qualifies for home O2 @ 2 l/m continuous. Script obtained from Dr Coronado and sent to [employer] via [email or web address]. O2 portable tank from [employer] stock given to RN, Martina, to take into pt's home for her to go home on and she states will instruct daughter to call [facility] before leaving [facility] for home O2 delivery. Pulse ox also provided to Martina to give to pt/dtr, if they are unable to afford one. Theresa, environmental planner, working on getting HHC set up for pt. Nasima RODRIGUEZN RONALD CM
--- NOTE | 2023-02-21 16:30 | CASEMGMT ---
RONALD GARCIA NOTE: Pt's daughter in to take pt home and voices concern re: pt having some slight increase in confusion from her baseline. RNMartina, discussed w/dtr that w/underlying dementia, hospitalization can cause an increase in confusion and that when pt returns home to their own environment, often they return to their baseline. Dtr voices understanding. Dtr states she works during the day and states, There is no one else that can stay with her while I'm @ work. RONALD GARCIA discussed w/dtr possible other options so that pt is not home alone tomorrow, if she is still sl confused and also discussed safety re: home oxygen/tubing. Dtr states she does have the option to print off her work reports and work from the home tomorrow and then states she is off of work until the following , so she can be home w/pt. Dtr did inquire what she should do if pt does not return to her baseline or if confusion worsens. RONALD GARCIA informed her to f/u with PCP or she could bring pt back to ER, if needed. She voices understanding. Discussed pt's dementia and current home set-up/situation, as pt is home alone while dtr is at work and dtr states she has not plans in place for changes in pt's mentation/decline in the future. Dtr provided w/the following resources: [facility], [facility], Private-duty aide agency's, [employer], and Alzheimer's support info. Dtr states would like a referral sent to Alzheimer's support for them to contact her and RONALD GARCIA did send referral as requested. Dtr voices much appreciation for the resources/info provided. She is aware no HHC has accepted pt yet, but 2 agencies are still pending. She states if no HHC able to accept her, then she would be interested in [facility] referral for SOC next week, as this is the earliest they are available. RONALD GARCIA or supply chain planner to f/u with dtr tomorrow re: HHC. Portable O2 tank has been delivered to pt's room. Dtr aware to call [employer] prior to discharge so arrange for home O2 set-up. She states they do have a pulse ox @ home. Dtr denies having further discharge planning needs or concerns. Nasima LIRA RN, CM
--- NOTE | 2023-02-22 12:09 | CASEMGMT ---
Addendum entered by Ilya Vásquez 02/22/23 16:52: No HHC has been established. RONALD GARCIA placed call to pt's dtr, Tiffanie. Tiffanie was made aware. Tiffanie states pt has been doing better today and that her mentation has returned to pretty much how she was before hospitalization. She states she has been getting up and around in the home today w/out the use of a walker, stating she furniture walks mostly. She was made aware, if she is still interested in having HHC for pt next week, to contact [facility] on Saturday and they can discuss this w/her further. She voices understanding. She voices no further needs/concerns at this time. Original Note: RONALD GARCIA NOTE: Per Theresa, financial planner, all HHC's have declined accepting pt. RONALD GARCIA placed call to [facility] and referral made and they were made aware that no HHC's have accepted pt and that pt's dtr was agreeable w/a SOC for next week, if that was the first available options. Call received back from Jonn @ [facility]. She states they do not have any openings until possible next week or possibly later and they are not able to accept pt, as they feel pt needs seen earlier than that. Theresa, financial planner, made aware and to reach out to prior HHC agencies that have declined pt to see if they may have availability earlier than next . Nasima LIRA RN, CM
== END 2023-02-21 17:10 | disposition home health service (06) | DRG 177 ==
LOC: ED 19:32 → PCU 02-18 00:48
PROVIDERS: Internal Medicine; Admitting Provider Family Medicine; Emergency Provider Student in an Organized Health Care Education/Training Program; PCP Family Medicine; Visit Provider Internal Medicine
DX: U07.1 COVID-19 (principal); J12.82 Pneumonia due to coronavirus disease 2019; J10.01 Influenza due to other identified influenza virus with the same other identified influenza virus pneumonia; I12.0 Hypertensive chronic kidney disease with stage 5 chronic kidney disease or end stage renal disease; J44.0 Chronic obstructive pulmonary disease with (acute) lower respiratory infection; N18.5 Chronic kidney disease, stage 5; G30.9 Alzheimer's disease, unspecified; F02.80 Dementia in other diseases classified elsewhere, unspecified severity, without behavioral disturbance, psychotic disturbance, mood disturbance, and anxiety; I65.21 Occlusion and stenosis of right carotid artery; E78.5 Hyperlipidemia, unspecified; F41.8 Other specified anxiety disorders; E87.6 Hypokalemia; K44.9 Diaphragmatic hernia without obstruction or gangrene; B34.9 Viral infection, unspecified; Z66 Do not resuscitate; Z51.5 Encounter for palliative care; Z87.891 Personal history of nicotine dependence
CPT/HCPCS: 36415; 71045; 71250; 80048; 80053; 81001; 83735; 84100; 84145; 85025; 85027; 87428; 87449; 87633; 87635; 94640; 97162; 97166; 97530; 97535; 97803; 99284; J7030; A4216

== ENCOUNTER 2024-02-26 17:42 | Inpatient (IN) | payer MEDICARE, SELFPAY ==
[2024-02-26] VITALS (16 sets, daily range): BP systolic 88–154; BP diastolic 53–134; PULSE 89–147; RESP 16–22; TEMP 36.1–36.6; O2SAT 93–100; BMI 16.9; BMI 17.4
--- NOTE | 2024-02-26 18:04 | RAD_ITS ---
INDICATION: altered ms EXAMINATION/TECHNIQUE: X-RAY - XR Chest 1 View COMPARISON: 02/17/2023. FINDINGS: LINES/DEVICES: None. LUNGS: No consolidation, edema or effusion. No pneumothorax. MEDIASTINUM AND CARDIOVASCULAR STRUCTURES: Cardiac silhouette not enlarged. Central airways and mediastinal contour are unremarkable. BONES AND SOFT TISSUES: Right shoulder arthroplasty. RAD/Chest 1 View (Portable) IMPRESSION: No radiographic evidence of acute cardiopulmonary disease. Electronically Signed: Kate Gerardo MD at 19:34 EST Reading Location ID and State: [id number] / Tel , Service support ,
--- NOTE | 2024-02-26 18:04 | CT_ITS ---
STUDY: CT BRAIN WITHOUT CONTRAST REASON FOR EXAM: Female, 78 years old. altered mental status RADIATION DOSAGE (If Supplied By Facility): CTDIvol = ( 44.99 ) mGy, DLP = ( 745.49 ) mGycm TECHNIQUE: Transaxial CT imaging of the brain was performed without administration of intravenous contrast material. Individualized dose optimization techniques were used for this CT. COMPARISON: 11/08/2018. FINDINGS: Normal soft tissue structures. Normal calvarium. Periventricular low attenuation changes consistent with moderate microvascular ischemia. Moderate ventriculomegaly commensurate with the degree of sulcal atrophy. Moderate involutional changes consistent with the patient''s age. There is no intracranial hemorrhage. There are no findings of an acute ischemic infarction. Normal visualized paranasal sinuses. CT/Brain/Head without Contrast IMPRESSION: No acute findings. Microvascular ischemia. Atrophy. Electronically Signed: Kate Gerardo MD at 19:51 EST Reading Location ID and State: [id number] / Tel , Service support ,
--- NOTE | 2024-02-26 18:04 | EKG12_ITS ---
Test Reason : Blood Pressure : */* mmHG Vent. Rate : 98 BPM Atrial Rate : 98 BPM P-R Int : 136 ms QRS Dur : 68 ms QT Int : 400 ms P-R-T Axes : 74 107 76 degrees QTcB Int : 510 ms Normal sinus rhythm Rightward axis Prolonged QT Abnormal ECG Confirmed by SHANELL LYNN, PRETTY ([id number]), book editor JORGE MONK ([id number]) on 02/28/2024 9:37:52 AM Referred By: Confirmed By: PRETTY REECE MD
--- NOTE | 2024-02-26 18:06 | EX.ED.DYSGE1 ---
HPI History of Present Illness Chief Complaint: General Illness Informant: family Narrative Narrative: Here with daughter and granddaughter for evaluation. Increasing confusion, over last 5 days not eating or drinking. There has not been vomiting or diarrhea. Decreased urine output. Decreased p.o. intake. History of dementia however not baseline. No cough. Reported patient would not get up to go to the bathroom she would go in the bed he recently. She does have a walker however does not typically use it. History of carotid disease with surgery, hypertension hyperlipidemia and GERD. TIAs in the past. No cardiac history. PFSH PFS Medical History Hypoxia History of GI bleed Stage 3b chronic kidney disease (CKD) COPD (chronic obstructive pulmonary disease) Dementia History of TIAs Carotid disease, bilateral Former tobacco use Anxiety and depression HLD (hyperlipidemia) HTN (hypertension) Home Medications ?Medication ?Instructions ?Recorded ?Last Taken ?Type aspirin 81 mg chewable tablet 81 mg PO DAILY@0800 heart health 11/08/18 Unknown History atenolol 25 mg tablet 25 mg PO DAILY blood pressure 11/08/18 Unknown History atorvastatin 80 mg tablet 80 mg PO DAILY cholesterol 11/08/18 Unknown History citalopram 40 mg tablet 20 mg PO DAILY anti-depressant 11/08/18 Unknown History lisinopril 10 mg tablet 10 mg PO DAILY Bp 11/08/18 Unknown History omeprazole 20 mg capsule,delayed 20 mg PO DAILY GERD 02/18/23 Unknown History release dexamethasone 6 mg tablet 6 mg PO DAILY #8 tabs 02/21/23 Unknown Rx oseltamivir 30 mg capsule 30 mg PO DAILY 3 days #3 caps 02/21/23 Unknown Rx pseudoephedrine-guaifenesin ER 60 1 tab PO BID cold symptoms #14 tabs 02/21/23 Unknown Rx mg-600 mg tablet,extend release 12hr (Mucinex D) Allergy/AdvReac Type Severity Reaction Status Date / Time No Known Allergies Allergy Verified 02/26/24 17:42 Family History Mother Kidney disease Father Lymphoma Surgical History History of carotid endarterectomy History of shoulder surgery Previous back surgery Social History household members: none Smoking Status: Former smoker how long ago did patient quit smoking: Smoked 1.5 pack/day quitting 09/23/2007, smoked 40 years. alcohol intake: current alcohol intake frequency: 0-2 drinks per day substance use type: does not use ROS ROS ED Constitutional Constitutional ED: Denies chills, fever(s) or sweats ENT ENT ED: Denies sore throat Cardiovascular Cardiovascular: Denies chest pain, leg edema, palpitations or racing heartbeat Respiratory/Chest Respiratory/Chest: Denies cough, dyspnea or dyspnea on exertion Gastrointestinal Gastrointestinal: Reports other Details: Decreased p.o. intake. ; Denies abdominal pain, diarrhea, nausea or vomiting Genitourinary Genitourinary ED: Reports other Details: Decreased urine output ; Denies dysuria, hematuria or urinary frequency Musculoskeletal Musculoskeletal: Denies back pain, extremity pain or neck pain Integumentary Denies rash or wounds Neurologic Neurologic: Reports other Details: Confusion ; Denies headache(s), paresthesias or weakness EXAM Physical Exam Const Vital Signs: 02/26/24 17:43 02/26/24 17:46 02/26/24 18:37 Temperature 97 F L 97.8 F Temperature Source Temporal Temporal Pulse Rate 147 H 94 Respiratory Rate 17 16 Respiratory Effort Normal Non-Labored Blood Pressure 88/71 L 102/62 Blood Pressure Mean 76 75 Pulse Ox 93 97 Oxygen Delivery Method Room Air Room Air 02/26/24 18:46 02/26/24 18:53 02/26/24 19:00 Temperature 97.8 F 97.7 F L Temperature Source Temporal Oral Pulse Rate 92 97 Respiratory Rate 18 20 H Respiratory Effort Blood Pressure 115/69 124/66 H Blood Pressure Mean 84 85 Pulse Ox 97 97 97 Oxygen Delivery Method Room Air Room Air Room Air 02/26/24 21:00 Temperature Temperature Source Pulse Rate 95 Respiratory Rate 20 H Respiratory Effort Blood Pressure 119/72 Blood Pressure Mean 87 Pulse Ox 96 Oxygen Delivery Method Room Air Positive cachectic Constitutional Narrative: Nontoxic General Appearance ED: cachectic and NAD Nutritional Appearance: cachectic HEENT Reports dry mucous membranes normocephalic and atraumatic Mouth ED: Yes dry mucous membranes Mouth: dry mucous membranes Eyes General Eye ED: Yes normal appearance of both eyes Neck full ROM Chest Wall Chest: Negative for tenderness Resp normal respiratory effort and normal air movement Effort and Inspection: symmetric chest movement; Negative for respiratory distress Cardio regular rhythm and no murmurs Rate: tachycardic Peripheral Pulses: pulses 2+ throughout GI normal to inspection, nondistended, normoactive bowel sounds and non-tender Palpation: Negative for guarding or rebound tenderness present Extremity normal to inspection General Extremety ED: Negative for edema or tenderness General Extremity: Negative for edema Neuro no sensory deficits noted Neuro Narrative: Alert to person and place. Could not tell me month year or holiday today. Sensorium / Orientation: awake and alert Skin no rashes or lesions noted and no wounds MDM MDM MDM Narrative Medical decision making narrative: Interventions / MDM: Differential diagnosis: Sepsis, UTI, acute kidney injury, transaminitis Diagnosis considered but do not suspect: N/A My EKG interpretation: Sinus rate of 98, no ST changes. QTc 510. Imaging independently reviewed and interpreted by myself: CT brain: No acute process, 1 view chest x-ray: No acute process. CT abdomen pelvis: Nephrolithiasis no obstructive process. No acute process of the abdomen also read by radiology. External documents reviewed: Labs from a year ago stable creatinine and liver enzymes. Test considered but not ordered:N/A ED course: Afebrile tachycardic sounds regular. Blood pressure 88/71 on arrival. Second hypotension tachycardia sepsis labs were ordered. Will plan for fluid bolus, lab studies chest x-ray. CT brain due to reported increasing confusion. Urine also ordered. EKG however sinus rhythm and normal rate. Will start with 1 L normal saline bolus with her dry mucosal membranes. 193: Urine with infection culture sent. Lactic acid 4.3. If no 500 cc bolus ordered for total of 30 cc/kg bolus. Her blood pressure did respond to fluids. Heart rate normalized. White count 12. Creatinine is 5.24 a year ago was 1.8. Likely prerenal with her decreased p.o. intake. She also has transaminitis with liver enzymes elevated AST 3827, ALT 193, total bili of 2.5. Not elevated a year ago. I added lipase slightly elevated at 79. Noncontrast CT abdomen pelvis ordered for evaluation due to her acute kidney injury and transaminitis. CT brain results negative. Chest x-ray 1 view negative. 2100: CT abdomen pelvis negative. Blood pressure stable. I spoke with hospitalist Dr. Flores who request I speak with GI due to her elevated liver enzymes. I discussed with Dr. Garcia, discussed patient's history findings and workup. He suspects likely ischemic hepatitis with her initial hypotension and infection. He recommend continue IV fluids, recommended vitamin K 5 mg IV, recommended acetylcysteine protocol 2 dosage which was ordered. Recommended typical hepatitis workup to be performed by hospitalist. This was relayed to hospitalist. Patient be admitted to ICU. Re-evaluation: stable Disposition discussed with patient/family/significant other: Patient and family Case discussed with consulting clinician: Hospitalist, gastroenterology This note was generated with [employer] dictation software. It may contain incorrect words, spelling, and punctuation that were not noted in checking the note before signing. Lab Data Attestation: I reviewed the patient's lab results. Labs: Laboratory Results - last 24 hr 02/26/24 02/26/24 02/26/24 18:28 18:45 21:20 WBC 12.0 H RBC 4.81 Hgb 13.6 Hct 42.9 MCV 89.2 MCH 28.3 MCHC 31.7 L RDW Std Deviation 43.0 RDW Coeff of Ed 13.2 Plt Count 281 MPV 11.0 Immature Gran % (Auto) 1.100 H Neut % (Auto) 79.2 H Lymph % (Auto) 9.0 L [place] % (Auto) 4.6 Eos % (Auto) 5.7 H Baso % (Auto) 0.4 Absolute Neuts (auto) 9.5 H Absolute Lymphs (auto) 1.08 Nucleated RBC % 1.3 Toxic Vacuolation 1+ Platelet Estimate ADEQUATE Anisocytosis 1+ Tear Drop Cells RARE Ovalocytes 1+ PT 24.2 H INR 2.2 APTT 26.6 Sodium 139 Potassium 3.5 Chloride 103 Carbon Dioxide 20.0 L Anion Gap 16 H BUN 98 H Creatinine 5.24 H Estim Creat Clear Calc 6.46 Est GFR (MDRD) Af Amer 10 L Est GFR (MDRD) Non-Af 9 L BUN/Creatinine Ratio 18.7 Glucose 131 H Lactic Acid 4.3 H* Calcium 8.0 L Phosphorus 6.2 H Total Bilirubin 2.50 H AST 3827 H ALT 1931 H Alkaline Phosphatase 281 H Total Protein 6.2 L Albumin 2.7 L Globulin 3.5 Albumin/Globulin Ratio 0.8 L Lipase 79 H Urine Color Brown Urine Clarity Turbid Urine pH 6.5 Ur Specific [place] 1.025 Urine Protein 100 H Urine Glucose (UA) 50 H Urine Ketones 15 H Urine Occult Blood 150 H Urine Nitrite Positive H Urine Bilirubin 3 H Urine Urobilinogen 4 H Ur Leukocyte Esterase 500 H Urine RBC 0-5 SEEN Urine WBC >100 SEEN Ur Squamous Epith Cells 10-25 SEEN Amorphous Sediment 4+ Urine Bacteria 3+ Urine Mucus 0 SEEN Urine Opiates Screen NEGATIVE Urine Methadone Screen NEGATIVE Acetaminophen 5.2 L Ur Barbiturates Screen NEGATIVE Ur Phencyclidine Scrn NEGATIVE Ur Amphetamines Screen NEGATIVE MDMA (Ecstasy) Screen NEGATIVE U Benzodiazepines Scrn NEGATIVE Urine Cocaine Screen NEGATIVE U Cannabinoids Screen NEGATIVE Ur Drug Screen Comment Ethyl Alcohol < 3.0 Radiography Diagnostic Testing: Clinical Impression(s) from Imaging Studies Brain CT 02/26/24 18:04 IMPRESSION: No acute findings. Microvascular ischemia. Atrophy. Electronically Signed: Kate Gerardo MD at 19:51 EST Reading Location ID and State: Karine Araiaz MD Tel , Service support , Chest X-Ray 02/26/24 18:04 IMPRESSION: No radiographic evidence of acute cardiopulmonary disease. Electronically Signed: Kate Gerardo MD at 19:34 EST Reading Location ID and State: Karine Araiza MD Tel , Service support , Abdomen/Pelvis CT 02/26/24 19:29 IMPRESSION: 1. No acute findings. 2. Nonobstructing renal calculi. Electronically Signed: Kate Gerardo MD at 20:23 EST Reading Location ID and State: Karine Araiza MD Tel , Service support , Critical Care Time Critical Care Time: Yes Critical care time (excluding procedures): 30-74 minutes, Discussing w/Patient &/or Family/Appraisal Analyst, Discussing w/Consultants, Arranging Admission or Transfer, Performing Direct Patient Care at Bedside and - ( 40 minutes) Discharge Plan Dx/Rx/DC Orders Clinical Impression: Sepsis associated hypotension, Acute UTI, ANJU (acute kidney injury), Transaminitis, History of dementia Disposition Disposition: Acute Care Hospital [facility] Discharge Date/Time: 02/26/24 21:32
[2024-02-26] MEDS: 0.9% Normal Saline (1000mL) 1,000 ML 999 ML IV ×3 (18:35→22:22)
[2024-02-26 18:45] LABS: Absolute Lymphocyte Count 1.08 X10^3/uL (0.83-4.51); Absolute Neutrophil Count 9.5 X10^3/uL (2.0-7.7); Basophil# 0.05 X10^3/uL; Basophil% 0.4 % (0-1); Eosinophil# 0.69 X10^3/uL; Eosinophils% 5.7 % (0-5); Hematocrit 42.9 % (37-47); Hemoglobin 13.6 g/dL (12.0-15.0); Lymphocyte # 1.08 X10^3/ul (0.83-4.51); Mean Corp Hgb Conc 31.7 g/dL (32-36); Mean Corpuscular Hgb 28.3 pg (27.0-32.0); Mean Corpuscular Volume 89.2 fL (81-99); Monocyte# 0.55 X10^3/uL; Monocyte% 4.6 % (0-10); NRBC Flagged by Analyzer 1.3 % (0-5); Neutrophil # 9.53 X10^3/uL (2.7-7.7); Neutrophil % 79.2 % (47-70); POSITIVE MORPHOLOGY YES; Platelet Count 281 K/mm3 (150-450); RBC Distribution Width CV 13.2 % (11.6-14.6); Red Blood Count 4.81 M/mm3 (4.2-5.4)
[2024-02-26 18:46] LABS: Differential Indicated SCAN CRITERIA MET
[2024-02-26 18:47] LABS: International Normalized Ratio 2.2; Prothrombin Time (Protime)PT. 24.2 SECONDS (11.7-14.9)
[2024-02-26 18:49] LABS: Mucous, Urine 0 SEEN /hpf (<or=2+)
[2024-02-26 18:55] LABS: Partial Thromboplast Time 26.6 Seconds (24.1-36.2)
[2024-02-26 19:12] LABS: Platelet Estimate ADEQUATE (ADEQ)
[2024-02-26 19:13] LABS: Anisocytosis 1+; Ovalocyte 1+; Tear Drop Cell RARE; Vacuolated Cells 1+
[2024-02-26 19:20] LABS: ALB/GLOB Ratio 0.8 RATIO (0.9-2.4); AST(SGOT) 3827 U/L (15-37); Alanine Aminotransfer ALT/SGPT 1931 U/L (13-56); Albumin, Serum 2.7 g/dL (3.2-5.0); Alkaline Phosphatase 281 U/L (45-117); Anion Gap 16 (5-15); BUN 98 mg/dL (7-18); BUN/Creat Ratio 18.7 RATIO (10-20); Chloride 103 mmol/L (98-107); Creatinine, Serum 5.24 mg/dL (0.55-1.02); EST Glomerular Filtration Rate 9 mL/min (>60); Est Glom Filt Rate - Afr Amer 10 mL/min (>60); Estimated Creatinine Clearance 6.46 ml/min; Globulin 3.5 g/dL (2.2-4.2); Glucose 131 mg/dL (74-106); Potassium 3.5 mmol/L (3.5-5.1); Protein, Total 6.2 g/dL (6.4-8.2); Sodium Level 139 mmol/L (136-145)
[2024-02-26 19:21] LABS: Lactic Acid 4.3 mmol/L (0.4-1.9)
[2024-02-26 19:22] LABS: Color, Urine Brown (Yellow); Glucose, Dipstick 50 mg/dl (Normal); Ketone-Dipstick 15 mg/dl (Negative); Leukocyte Esterase-Dipstick 500 /ul (Negative); Nitrite-Dipstick Positive (Negative); Occult Blood-Urine 150 /ul (Negative); Protein-Dipstick 100 mg/dl (Negative); Specific Gravity, Urine 1.025 (1.002-1.030); Urine Bilirubin Dipstick 3 mg/dL (Negative); Urine Clarity Turbid (Clear); Urine Urobilinogen 4 mg/dl (Normal); Urine pH 6.5 (5.0 - 8.0)
--- NOTE | 2024-02-26 19:29 | CT_ITS ---
EXAM: CT ABDOMEN AND PELVIS WITHOUT INTRAVENOUS CONTRAST CLINICAL INDICATION: adela, transaminitis TECHNIQUE: Helically acquired images were obtained of the abdomen and pelvis without intravenous contrast. This CT exam was performed using one or more of the following dose reduction techniques: automated exposure control, adjustment of the mA and/or kV according to patient size, and/or use of iterative reconstruction technique. COMPARISON: No relevant prior studies available. FINDINGS: LOWER THORAX: Unremarkable. Lung bases are clear. No cardiomegaly. No significant pericardial effusion. ABDOMEN: LIVER: Unremarkable. Homogeneous. GALLBLADDER AND BILE DUCTS: Unremarkable. No calcified gallstones. No gallbladder distention or wall edema. No intra- or extrahepatic biliary ductal dilation. PANCREAS: Unremarkable. No focal cystic mass. SPLEEN: Unremarkable. Normal size without focal cystic or solid mass. ADRENALS: Unremarkable. No nodules. KIDNEYS AND URETERS: 4 mm nonobstructing stone lower pole left kidney. Punctate nonobstructing stone in the right kidney. Kidneys are otherwise unremarkable. No hydronephrosis. Ureters are normal in course and caliber. No ureteral stones. STOMACH AND BOWEL: Mild diverticulosis, no acute diverticulitis. No stomach or bowel distention. No focal inflammatory change. PELVIS: APPENDIX: No evidence of acute appendicitis. BLADDER: Unremarkable. REPRODUCTIVE: Unremarkable as visualized. No mass. ABDOMEN and PELVIS: INTRAPERITONEAL SPACE: Unremarkable. No ascites or other fluid collection. No free air. BONES/JOINTS: Mild lumbar levoscoliosis. Degenerative changes of the lumbar spine. No suspicious lytic or blastic abnormality. SOFT TISSUES: Unremarkable. No discrete abdominal or pelvic wall hernia. VASCULATURE: Unremarkable. Abdominal aorta is normal in caliber. LYMPH NODES: Unremarkable. No enlarged lymph nodes. CT/Abdomen/Pelvis without Cont IMPRESSION: 1. No acute findings. 2. Nonobstructing renal calculi. Electronically Signed: Kate Gerardo MD at 20:23 EST Reading Location ID and State: [id number] / Tel , Service support ,
[2024-02-26 19:48] LABS: Amorphous Sediment 4+; Bacteria 3+ /hpf (None Seen); Red Blood Cells-Urine 0-5 SEEN /hpf (0-5); Squamous Epithelial Cells - UA 10-25 SEEN /hpf (5-10); White Blood Cells >100 SEEN /hpf (0-5)
[2024-02-26] MEDS: Ceftriaxone 2 GM in 0.9% Normal Saline (50mL MB+) 50 ML IV (19:53)
[2024-02-26 19:54] LABS: Lipase 79 U/L (13-75)
--- NOTE | 2024-02-26 20:59 | HP.PCM.HOS_ITS ---
[facility] - General General Date of Admission: 02/26/24 Date of Service: 02/26/24 Chief Complaint: AMS with Poor Oral Intake x 5 days. HPI Narrative CURTIS JOLLY, is a 78 F with a past medical history of essential hypertension; on lisinopril and atenolol, hyperlipidemia; on atorvastatin, former tobacco abuse (quit 2007); with subsequent COPD, CKD; stage IIIb, history of dementia, depression with anxiety; on citalopram, history of TIA's on BASA daily, history of bilateral carotid disease; s/p bilateral carotid endarterectomy, history of GI bleed, history of influenza (2022) and OA; with history of Right shoulder repair and eventual replacement plus previous back surgery for herniated disc who presents to [facility] ER with her family complaining of altered mental status with poor oral intake. Ms. Jolly reports her symptoms began approximately 5 days prior to admission with decreased appetite and minimal eating or drinking. Though her recall of the details of recent events is poor she denies associated nausea, vomiting, diarrhea or cough but she does admit to decreased urinary output with dark cloudy urine along with new persistent tremor in her upper extremities that she is very concerned about. Patient denies history of alcohol abuse, known chronic liver disease or recent significant acetaminophen use. In the ER she was noted to have a UA positive for Acute Cystitis without hematuria complicated by laboratory evidence of sepsis with Leukocytosis of 12K and Left- shift of 1.1% with lactic acidosis of 4.3 mmol/L present on admission compounded by Severe Acute Renal Failure with serum creatinine of 5.24 mg/dL and BUN of 98 mg/dL present on admission (up from her baseline of 1.87 mg/dL and 38 mg/dL) along with evidence of Severe Acute Liver Failure evidenced by elevated total bilirubin of 2.5 mg/dL with AST of 3,008 and ALT 1,931 U/L with alkaline phosphatase of 281 U/L further exacerbated by INR of 2.2 present on admission due to auto-anticoagulation with GI physician on-call suspecting Ischemic Hepatitis due to Sepsis with CT scan of the abdomen pelvis without contrast done in the ER revealing no acute findings all coalescing to cause Acute Metabolic Encephalopathy with Poor Oral Intake. She was then reluctantly admitted to the ICU for treatment under the Sepsis protocol for a stay that is expected to extend beyond 2 midnights. [facility] Medical History Hypoxia History of GI bleed Stage 3b chronic kidney disease (CKD) COPD (chronic obstructive pulmonary disease) Dementia History of TIAs Carotid disease, bilateral Former tobacco use Anxiety and depression HLD (hyperlipidemia) HTN (hypertension) Home Medications ?Medication ?Instructions ?Recorded ?Last Taken ?Type aspirin 81 mg chewable tablet 81 mg PO DAILY@0800 [facility] 11/08/18 Unknown History atenolol 25 mg tablet 25 mg PO DAILY blood pressure 11/08/18 Unknown History atorvastatin 80 mg tablet 80 mg PO DAILY cholesterol 11/08/18 Unknown History citalopram 40 mg tablet 20 mg PO DAILY anti-depressant 11/08/18 Unknown History lisinopril 10 mg tablet 10 mg PO DAILY Bp 11/08/18 Unknown History omeprazole 20 mg capsule,delayed 20 mg PO DAILY GERD 02/18/23 Unknown History release dexamethasone 6 mg tablet 6 mg PO DAILY #8 tabs 02/21/23 Unknown Rx oseltamivir 30 mg capsule 30 mg PO DAILY 3 days #3 caps 02/21/23 Unknown Rx pseudoephedrine-guaifenesin ER 60 1 tab PO BID cold symptoms #14 tabs 02/21/23 Unknown Rx mg-600 mg tablet,extend release 12hr (Mucinex D) Allergy/AdvReac Type Severity Reaction Status Date / Time No Known Allergies Allergy Verified 02/26/24 17:42 Family History Mother Kidney disease Father Lymphoma Surgical History History of carotid endarterectomy History of shoulder surgery Previous back surgery Social History household members: none Smoking Status: Former smoker how long ago did patient quit smoking: Smoked 1.5 pack/day quitting 09/23/2007, smoked 40 years. alcohol intake: current alcohol intake frequency: 0-2 drinks per day substance use type: does not use ROS ROS Narrative Full review of systems was not possible due to patient's limited memory of recent events. Vital Signs Vital Signs Vital Signs: 02/26/24 17:43 02/26/24 17:46 02/26/24 18:37 Temperature 97 F L 97.8 F Temperature Source Temporal Temporal Pulse Rate 147 H 94 Respiratory Rate 17 16 Respiratory Effort Normal Non-Labored Blood Pressure 88/71 L 102/62 Blood Pressure Mean 76 75 Pulse Ox 93 97 Oxygen Delivery Method Room Air Room Air 02/26/24 18:46 02/26/24 18:53 02/26/24 19:00 Temperature 97.8 F 97.7 F L Temperature Source Temporal Oral Pulse Rate 92 97 Respiratory Rate 18 20 H Respiratory Effort Blood Pressure 115/69 124/66 H Blood Pressure Mean 84 85 Pulse Ox 97 97 97 Oxygen Delivery Method Room Air Room Air Room Air Weight Weight: 98 lb 12.273 oz Body Mass Index (BMI) 16.9 Physical Exam Const alert, no apparent distress and average body habitus General Appearance: cooperative Orientation / Consciousness: confused HEENT normocephalic, head/scalp atraumatic and hearing grossly normal bilaterally HEENT Narrative: Mucous membranes dry. Eyes PERRL and EOMs intact bilaterally Neck no lymphadenopathy and supple Resp normal respiratory effort, no retractions, no use of accessory muscles and clear to auscultation bilaterally Cardio regular rate and regular rhythm GI normal to inspection, nondistended, normoactive bowel sounds, soft to palpation, non-tender and non-distended Extremity normal to inspection, full ROM and no clubbing, cyanosis or edema Skin Skin Narrative: Patient has no evidence of rash, abscess or jaundice. Neuro CN's II-XII intact bilaterally, moves all extremities and no focal motor deficits Sensorium / Orientation: awake, alert, oriented to person and oriented to place Speech: speech normal Psych affect normal Results Medical Records Data Attestation: I reviewed the patient's medical records Lab / Micro Data Attestation: I reviewed the patient's lab results. 02/26/24 18:28 02/26/24 18:28 Labs: Laboratory Results - last 24 hr 02/26/24 18:28: WBC 12.0 H, RBC 4.81, Hgb 13.6, Hct 42.9, MCV 89.2, MCH 28.3, M CHC 31.7 L, RDW Std Deviation 43.0, RDW Coeff of Ed 13.2, Plt Count 281, MPV 11.0, Immature Gran % (Auto) 1.100 H, Neut % (Auto) 79.2 H, Lymph % (Auto) 9.0 L , [place] % (Auto) 4.6, Eos % (Auto) 5.7 H, Baso % (Auto) 0.4, Absolute Neuts (auto) 9.5 H, Absolute Lymphs (auto) 1.08, Nucleated RBC % 1.3, Toxic Vacuolation 1+, Platelet Estimate ADEQUATE, Anisocytosis 1+, Tear Drop Cells RARE, Ovalocytes 1+, PT 24.2 H, INR 2.2, APTT 26.6, Sodium 139, Potassium 3.5, Chloride 103, Carbon Dioxide 20.0 L, Anion Gap 16 H, BUN 98 H, Creatinine 5.24 H , Estim Creat Clear Calc 6.46, Est GFR (MDRD) Af Amer 10 L, Est GFR (MDRD) Non- Af 9 L, BUN/Creatinine Ratio 18.7, Glucose 131 H, Lactic Acid 4.3 H*, Calcium 8.0 L, Total Bilirubin 2.50 H, AST 3827 H, ALT 1931 H, Alkaline Phosphatase 281 H, Total Protein 6.2 L, Albumin 2.7 L, Globulin 3.5, Albumin/Globulin Ratio 0.8 L, Lipase 79 H 02/26/24 18:45: Urine Color Brown, Urine Clarity Turbid, Urine pH 6.5, Ur Specific [place] 1.025, Urine Protein 100 H, Urine Glucose (UA) 50 H, Urine Ketones 15 H, Urine Occult Blood 150 H, Urine Nitrite Positive H, Urine Bilirubin 3 H, Urine Urobilinogen 4 H, Ur Leukocyte Esterase 500 H, Urine RBC 0- 5 SEEN, Urine WBC >100 SEEN, Ur Squamous Epith Cells 10-25 SEEN, Amorphous Sediment 4+, Urine Bacteria 3+, Urine Mucus 0 SEEN Imaging Radiology Impression Brain CT 02/26/24 18:04 IMPRESSION: No acute findings. Microvascular ischemia. Atrophy. Electronically Signed: Kate Gerardo MD at 19:51 EST Reading Location ID and State: [id number] / Tel , Service support , Chest X-Ray 02/26/24 18:04 IMPRESSION: No radiographic evidence of acute cardiopulmonary disease. Electronically Signed: Kate Gerardo MD at 19:34 EST Reading Location ID and State: [place] / Tel , Service support , Abdomen/Pelvis CT 02/26/24 19:29 IMPRESSION: 1. No acute findings. 2. Nonobstructing renal calculi. Electronically Signed: Kate Gerardo MD at 20:23 EST Reading Location ID and State: [place] Araiza MD Tel , Service support , Assessment & Plan Assessment/Plan (1) Sepsis associated hypotension: (2) Acute UTI: (3) Acute renal failure: QUALIFIERS: Acute renal failure type: unspecified Qualified Code(s): N17.9 - Acute kidney failure, unspecified (4) Rhabdomyolysis: QUALIFIERS: Rhabdomyolysis type: non-traumatic Qualified Code(s): M62.82 - Rhabdomyolysis (5) Acute liver failure: QUALIFIERS: Hepatic coma status: without hepatic coma Qualified Code(s): K72.00 - Acute and subacute hepatic failure without coma (6) Transaminitis: (7) Acute metabolic encephalopathy: (8) Poor fluid intake: (9) History of dementia: PLAN: Plan 1. Acute Cystitis without hematuria complicated by laboratory evidence of Sepsis with Leukocytosis of 12K and Left-shift of 1.1% with Lactic Acidosis of 4.3 mmol/L present on admission - Admit to ICU for treatment of the sepsis protocol. Start IV Zosyn and IV Zyvox for broad-spectrum coverage of potential multidrug-resistant pathogens and await culture and sensitivity data. Serialize lactate. Avoid Tylenol or other potentially hepatotoxic agents. Start Protonix 40 mg IV daily for GI prophylaxis given patient's acute severe illness. Give IV Zofran as needed nausea and vomiting. Repeat lactate down to 2.8 mmol/L after initial round of treatment. 2. Severe Acute Renal Failure with serum creatinine of 5.24 mg/dL and BUN of 98 mg/dL present on admission (up from her baseline of 1.87 mg/dL and 38 mg/dL) with elevated CPK of 333 U/L present on admission consistent with suspected early Rhabdomyolysis in the setting of known CKD; stage IIIb complicating #1 - Aggressively volume resuscitate and recheck renal indices daily to evaluate for improvement. Recheck CPK in a.m. to follow trend. Avoid potentially nephrotoxic agents. 3. Severe Acute Liver Failure evidenced by elevated total bilirubin of 2.5 mg/dL with AST of 3,008 and ALT 1,931 U/L with alkaline phosphatase of 281 U/L further exacerbated by INR of 2.2 present on admission due to auto- anticoagulation with GI physician on-call suspecting Ischemic Hepatitis due to Sepsis with CT scan of the abdomen pelvis without contrast done in the ER revealing no acute findings along with clinical findings of possible asterixis compounding #1 & #2 - GI physician recommended 2 doses of IV NAC and a dose of IV vitamin K. Acetaminophen levels and hepatitis profile are pending at this time. We will check CMP and INR daily to follow trend to response to therapy. 4. Acute Metabolic Encephalopathy with recent Poor Oral Intake attributable to #1 - #3 - Check UDS, B12, folate and alcohol levels to evaluate for potential reversible causes of confusion. Otherwise, continue care plan outlined above and monitor for improvement. 5. History of dementia and depression with anxiety; on citalopram - Hold citalopram until further notice. 6. Essential hypertension; on lisinopril and atenolol - Hold scheduled antihypertensives until severe infection and multiorgan failure outlined above have resolved. 7. Hyperlipidemia; on atorvastatin - Hold statin with severe transaminitis and liver failure with auto-anticoagulation. 8. Former tobacco abuse (quit 2007); with subsequent COPD - Stable with no evidence of acute flare at this time. Continue prn nebulizers. 9. History of TIA's on BASA daily - Noted. Hold BASA until further notice with INR of 2.2 present on admission. 10. History of bilateral carotid disease; s/p carotid endarterectomy - Noted. 11. History of GI bleed - Stable with no complaints of recent bleeding. 12. History of influenza (2022) - Noted. 13. OA; with history of shoulder surgery and previous back surgery - Stable. 14. DVT prophylaxis - SCD's only with patient already auto-anticoagulated with INR of 2.2 present on admission due to #3. Total time: Approximately (but not less than) 75 minutes. Sepsis Attestation Sepsis Alert: Yes Sepsis Attestation: Agree w/Sepsis Date exam was performed: 02/26/24 Time exam was performed: 21:45 Possible Source of Sepsis: Genitourinary Sepsis Organ Dysfunction Criteria Present: Creatinine > 2.0 mg/dL, Lactic Acid > 2 mmol/L and New/Unexplained change in mental status Fluid Resuscitation Fluid resuscitation indicated?: Yes Fluid Resuscitation ordered: 30 ml/kg fluid bolus ordered Amount of fluid ordered: 2 Sepsis Note Date exam was performed: 02/27/24 Time exam was performed: 01:45 Sepsis Attestation: Sepsis re-evaluation was performed Response to fluids: Fluid responsive hypotension Charges/Coding Visit Charges Inpatient E&M: 15558 Init Hosp L3
[2024-02-26] MEDS: Phytonadione (Vit K) 5 MG in 0.9% Normal Saline (50mL Bag) 50 ML 150 MG IV (21:58)
[2024-02-26 22:02] LABS: Acetaminophen (Tylenol) Level 5.2 ug/mL (10.0-30.0)
[2024-02-26 22:11] LABS: Alcohol, Blood (Medical)-Serum < 3.0 mg/dL
[2024-02-26 22:11] LABS: Amphetamine Urine VISTA NEGATIVE (<1000 ng/mL); Barbiturate Urine VISTA NEGATIVE (< 200 ng/mL); Benzodiazepine Urine VISTA NEGATIVE (< 200 ng/mL); Cocaine Urine VISTA NEGATIVE (< 300 ng/mL); Ecstacy Urine VISTA NEGATIVE (< 500 ng/mL); Methadone Urine VISTA NEGATIVE (< 300 ng/mL); PCP Urine VISTA NEGATIVE (< 25 ng/mL); THC Urine VISTA NEGATIVE (< 50 ng/mL); Vista UDS pH Range 4
[2024-02-26 22:11] LABS: Phosphorus 6.2 mg/dL (2.5-4.9)
[2024-02-26] MEDS: 0.9% Saline Lock 10 ML Syringe IV ×2 (22:20→22:45)
[2024-02-26] MEDS: Pantoprazole Sodium 40 MG in 0.9% Normal Saline (100mL MB+) 100 ML 330 MG IV (22:21)
[2024-02-26] MEDS: Linezolid 600 MG 600 MG/300 ML BAG 200 MG IV (22:29)
[2024-02-26 22:31] LABS: Reflex Lactate? Y
[2024-02-26] MEDS: WATER IV ×2 (22:31→23:49)
[2024-02-26] MEDS: ACETYLCYSTEINE IV ×2 (22:31→23:49)
[2024-02-26] MEDS: DEXTROSE 5% IV ×2 (22:31→23:49)
[2024-02-26] MEDS: Piperacil/Tazobactam 3.375 GM in 0.9% Normal Saline (50mL MB+) 50 ML IV (22:41)
[2024-02-26 22:56] LABS: Ionized Calcium 0.94 mmol/L (1.09-1.30)
[2024-02-26 22:59] LABS: Lactic Acid 2.8 mmol/L (0.4-1.9)
[2024-02-26] MEDS: Morphine 2 MG/ML Syringe IV (22:59)
[2024-02-26 23:23] LABS: Ammonia < 10.0 umol/L (11-32)
[2024-02-26] MEDS: 0.9% Normal Saline (1000mL) 1,000 ML 150 ML IV (23:28)
[2024-02-26 23:32] LABS: CPK Total, Creatine Kinase 333 U/L (26-192); Magnesium 1.7 mg/dL (1.6-2.6); Thyroid Stim Hormone (TSH) 0.339 uIU/mL (0.358-3.740); Troponin-I HS 23 pg/mL (3.0-54.0)
[2024-02-26 23:51] LABS: Ionized Calcium Order ORDER TUBE
[2024-02-27] VITALS (24 sets, daily range): BP systolic 107–142; BP diastolic 43–85; PULSE 73–101; RESP 13–20; TEMP 36.3–36.9; O2SAT 93–100; BMI 18.4
[2024-02-27] MEDS: 0.9% Saline Lock 10 ML Syringe IV ×2 (02:25→21:17)
[2024-02-27] MEDS: Calcium Gluconate 1 GM/10 ML Vial IVP (02:25)
[2024-02-27 02:36] LABS: Absolute Lymphocyte Count 0.74 X10^3/uL (0.83-4.51); Absolute Neutrophil Count 7.6 X10^3/uL (2.0-7.7); Basophil# 0.03 X10^3/uL; Basophil% 0.3 % (0-1); Eosinophil# 0.01 X10^3/uL; Eosinophils% 0.1 % (0-5); Hematocrit 29.2 % (37-47); Hemoglobin 9.2 g/dL (12.0-15.0); Lymphocyte # 0.74 X10^3/ul (0.83-4.51); Lymphocyte % 8.3 % (19-41); Mean Corp Hgb Conc 31.5 g/dL (32-36); Mean Corpuscular Hgb 28.6 pg (27.0-32.0); Mean Corpuscular Volume 90.7 fL (81-99); Mean Platelet Vol. 10.9 fl (6.2-12.0); Monocyte# 0.41 X10^3/uL; Monocyte% 4.6 % (0-10); NRBC Flagged by Analyzer 0.8 % (0-5); Neutrophil # 7.64 X10^3/uL (2.7-7.7); Neutrophil % 85.4 % (47-70); Platelet Count 234 K/mm3 (150-450); RBC Distribution Width CV 13.2 % (11.6-14.6); RBC Distribution Width SD 43.8 fl (35.1-43.9); Red Blood Count 3.22 M/mm3 (4.2-5.4)
[2024-02-27 02:53] LABS: Acetaminophen (Tylenol) Level 10.3 ug/mL (10.0-30.0)
[2024-02-27] MEDS: 0.9% Normal Saline (100mL Bag) 100 ML 15 ML IV (03:00)
[2024-02-27 03:13] LABS: ALB/GLOB Ratio 0.6 RATIO (0.9-2.4); AST(SGOT) 1826 U/L (15-37); Alanine Aminotransfer ALT/SGPT 1112 U/L (13-56); Albumin, Serum 1.7 g/dL (3.2-5.0); Alkaline Phosphatase 194 U/L (45-117); Anion Gap 13 (5-15); BUN 88 mg/dL (7-18); BUN/Creat Ratio 21.4 RATIO (10-20); CPK Total, Creatine Kinase 406 U/L (26-192); Calcium,Total 6.7 mg/dL (8.5-10.1); Chloride 111 mmol/L (98-107); Creatinine, Serum 4.12 mg/dL (0.55-1.02); EST Glomerular Filtration Rate 11 mL/min (>60); Est Glom Filt Rate - Afr Amer 14 mL/min (>60); Estimated Creatinine Clearance 8.18 ml/min; Globulin 2.8 g/dL (2.2-4.2); Glucose 185 mg/dL (74-106); Potassium 3.3 mmol/L (3.5-5.1); Protein, Total 4.5 g/dL (6.4-8.2); Sodium Level 144 mmol/L (136-145)
[2024-02-27 03:24] LABS: International Normalized Ratio 2.6; Prothrombin Time (Protime)PT. 27.3 SECONDS (11.7-14.9)
[2024-02-27 03:52] LABS: PTHIN 620.2 pg/mL (18.4-80.1)
[2024-02-27] MEDS: 0.9% Normal Saline (1000mL) 1,000 ML 150 ML IV (06:11)
--- NOTE | 2024-02-27 07:06 | EX.PCM.CONCC ---
Assessment & Plan Assessment/Plan (1) Sepsis: PLAN: Plan RECOMMENDATIONS: 1. Continue antimicrobials as ordered. 2. Gentle IV fluid hydration as tolerated. 3. Continue PPI therapy. 4. Unclear ongoing need for acetylcysteine. 5. Recommend formal consultation to gastroenterology. 6. Aggressive electrolyte repletion. IMPRESSIONS: 1. Sepsis The patient presented to the hospital with sepsis due to probable UTI with acute sepsis related organ dysfunction as evidenced by acute kidney injury, lactic acidemia and hyperbilirubinemia. She did receive supplemental IV fluid hydration but has remained otherwise hemodynamically stable. Plan to continue antimicrobials pending further culture workup. 2. Acute kidney injury Clinical concern for prerenal etiology in the setting of #1. The patient's creatinine is improving with volume expansion. Continue to monitor urine output for now. There is no current indication for renal replacement therapy. 3. Acute liver injury Initial suspicion was for ischemic hepatitis following conversation with gastroenterology upon admission to the hospital. However, it does not appear that a consultation was ever placed to GI. The patient's liver function profile is improving with supportive care. The patient was apparently initiated on acetylcysteine per the recommendations of gastroenterology. Hepatitis panel is currently pending. 4. Anemia The patient's hemoglobin was noted to be 9.2 g/dL this morning following fluid resuscitation. It does appear that this is somewhat close to her baseline. Recommend continuing PPI therapy and continuing to monitor H&H. Transfuse if hemoglobin drops below 7 g/dL. 5. Hypocalcemia/hypokalemia Aggressive electrolyte repletion as ordered. Recheck levels in the morning. 6. Encephalopathy Most likely related to presenting infection coupled with baseline dementia. Continue supportive measures as noted above. 7. History of hypertension/hyperlipidemia/depression/anxiety Complicates care, management, recovery and prognosis. Continue to hold home medications for now. This note was generated with Medisseation software. It may contain incorrect words, spelling, and punctuation that were not noted in checking the note before signing. HPI Consult Data Date of Consult: 02/27/24 HPI Narrative Reason for Consultation: Sepsis HPI Narrative: The patient is a 78-year-old female, with a history as outlined below, who presented to the emergency department on February 25 with decreased p.o. intake and altered mentation. The patient has a known medical history of hypertension, hyperlipidemia, chronic kidney disease, depression, anxiety and history of carotid artery disease. The patient does have some underlying dementia and is therefore not a reliable historian. She is unclear as to the reasons for her hospitalization. On presentation to the emergency department, the patient was documented to be afebrile but was tachycardic and relatively hypotensive with a presenting blood pressure of 88/71 mmHg. Laboratory evaluation revealed a white blood cell count of 12,000. INR was elevated at 2.2. Chemistry profile was notable for a bicarbonate of 20, anion gap of 16, BUN of 98 and creatinine of 5.24. Lactate was elevated at 4.3. Ionized calcium was low at 0.94. Phosphorus was elevated at 6.2. Total bilirubin was increased to 2.5 with an AST of 3827 and ALT of 1931. Urinalysis was positive for nitrites, leukocyte esterase and 4+ urine bacteria. Toxicology screen was negative. Acetaminophen level was within normal limits. CT head revealed microvascular ischemia and atrophy. Chest x-ray demonstrated no acute cardiopulmonary process. CT abdomen/pelvis demonstrated nonobstructive renal calculi. The patient received supplemental IV fluid hydration and was initiated on antimicrobial therapy. She was also placed on N-acetylcysteine. The patient was subsequently admitted to the medical intensive care unit for further management. [facility] Medical History Hypoxia History of GI bleed Stage 3b chronic kidney disease (CKD) COPD (chronic obstructive pulmonary disease) Dementia History of TIAs Carotid disease, bilateral Former tobacco use Anxiety and depression HLD (hyperlipidemia) HTN (hypertension) Home Medications ?Medication ?Instructions ?Recorded ?Last Taken ?Type aspirin 81 mg chewable tablet 81 mg PO DAILY@0800 [facility] 11/08/18 Unknown History atenolol 25 mg tablet 25 mg PO DAILY blood pressure 11/08/18 Unknown History atorvastatin 80 mg tablet 80 mg PO DAILY cholesterol 11/08/18 Unknown History citalopram 40 mg tablet 20 mg PO DAILY anti-depressant 11/08/18 Unknown History lisinopril 10 mg tablet 10 mg PO DAILY Bp 11/08/18 Unknown History omeprazole 20 mg capsule,delayed 20 mg PO DAILY GERD 02/18/23 Unknown History release dexamethasone 6 mg tablet 6 mg PO DAILY #8 tabs 02/21/23 Unknown Rx oseltamivir 30 mg capsule 30 mg PO DAILY 3 days #3 caps 02/21/23 Unknown Rx pseudoephedrine-guaifenesin ER 60 1 tab PO BID cold symptoms #14 tabs 02/21/23 Unknown Rx mg-600 mg tablet,extend release 12hr (Mucinex D) Allergy/AdvReac Type Severity Reaction Status Date / Time No Known Allergies Allergy Verified 02/26/24 17:42 Family History Mother Kidney disease Father Lymphoma Surgical History History of carotid endarterectomy History of shoulder surgery Previous back surgery Social History household members: none Smoking Status: Former smoker how long ago did patient quit smoking: Smoked 1.5 pack/day quitting 09/23/2007, smoked 40 years. alcohol intake: current alcohol intake frequency: 0-2 drinks per day substance use type: does not use ROS ROS Narrative 10 systems were reviewed with pertinent positives as noted in the HPI above. Physical Exam Const alert and no apparent distress Constitutional Narrative: Alert and oriented to person only. General Appearance: cooperative HEENT normocephalic and head/scalp atraumatic Eyes PERRL, EOMs intact bilaterally and conjunctivae normal Neck supple General: trachea midline Chest inspection of chest normal Resp normal respiratory effort Auscultation: Negative for rales, rhonchi or wheezes Cardio regular rate and regular rhythm GI normal to inspection, nondistended, normoactive bowel sounds Extremity no clubbing, cyanosis or edema Skin no rashes or lesions noted Neuro CN's II-XII intact bilaterally, moves all extremities and no focal motor deficits Psych cooperative Mood & Affect: flat affect Lab / Micro Data 02/27/24 02:25 02/27/24 02:25 Labs: Laboratory Results - last 24 hr 02/26/24 18:28: WBC 12.0 H, RBC 4.81, Hgb 13.6, Hct 42.9, MCV 89.2, MCH 28.3, MCHC 31.7 L, RDW Std Deviation 43.0, RDW Coeff of Ed 13.2, Plt Count 281, MPV 11.0, Immature Gran % (Auto) 1.100 H, Neut % (Auto) 79.2 H, Lymph % (Auto) 9.0 L, [place] % (Auto) 4.6, Eos % (Auto) 5.7 H, Baso % (Auto) 0.4, Absolute Neuts (auto) 9.5 H, Absolute Lymphs (auto) 1.08, Nucleated RBC % 1.3, Toxic Vacuolation 1+, Platelet Estimate ADEQUATE, Anisocytosis 1+, Tear Drop Cells RARE, Ovalocytes 1+, PT 24.2 H, INR 2.2, APTT 26.6, Sodium 139, Potassium 3.5, Chloride 103, Carbon Dioxide 20.0 L, Anion Gap 16 H, BUN 98 H, Creatinine 5.24 H, Estim Creat Clear Calc 6.46, Est GFR (MDRD) Af Amer 10 L, Est GFR (MDRD) Non-Af 9 L, BUN/Creatinine Ratio 18.7, Glucose 131 H, Lactic Acid 4.3 H*, Calcium 8.0 L, Phosphorus 6.2 H, Total Bilirubin 2.50 H, AST 3827 H, ALT 1931 H, Alkaline Phosphatase 281 H, Total Protein 6.2 L, Albumin 2.7 L, Globulin 3.5, Albumin/Globulin Ratio 0.8 L, Lipase 79 H 02/26/24 18:45: Urine Color Brown, Urine Clarity Turbid, Urine pH 6.5, Ur Specific [place] 1.025, Urine Protein 100 H, Urine Glucose (UA) 50 H, Urine Ketones 15 H, Urine Occult Blood 150 H, Urine Nitrite Positive H, Urine Bilirubin 3 H, Urine Urobilinogen 4 H, Ur Leukocyte Esterase 500 H, Urine RBC 0-5 SEEN, Urine WBC >100 SEEN, Ur Squamous Epith Cells 10-25 SEEN, Amorphous Sediment 4+, Urine Bacteria 3+, Urine Mucus 0 SEEN, Urine Opiates Screen NEGATIVE, Urine Methadone Screen NEGATIVE, Ur Barbiturates Screen NEGATIVE, Ur Phencyclidine Scrn NEGATIVE, Ur Amphetamines Screen NEGATIVE, MDMA (Ecstasy) Screen NEGATIVE, U Benzodiazepines Scrn NEGATIVE, Urine Cocaine Screen NEGATIVE, U Cannabinoids Screen NEGATIVE, Ur Drug Screen Comment 02/26/24 21:20: Acetaminophen 5.2 L, Ethyl Alcohol < 3.0 02/26/24 22:20: Lactic Acid 2.8 H*, Magnesium 1.7, Total Creatine Kinase 333 H, Troponin I High Sens 23, Folate 26.50, TSH 0.339 L 02/26/24 22:50: Ammonia < 10.0 L 02/26/24 22:51: Ionized Calcium 0.94 L 02/27/24 02:25: WBC 9.0, RBC 3.22 L, Hgb 9.2 L, Hct 29.2 L, MCV 90.7, MCH 28.6, MCHC 31.5 L, RDW Std Deviation 43.8, RDW Coeff of Ed 13.2, Plt Count 234, MPV 10.9, Immature Gran % (Auto) 1.300 H, Neut % (Auto) 85.4 H, Lymph % (Auto) 8.3 L, [place] % (Auto) 4.6, Eos % (Auto) 0.1, Baso % (Auto) 0.3, Absolute Neuts (auto) 7.6, Absolute Lymphs (auto) 0.74 L, Nucleated RBC % 0.8, PT 27.3 H, INR 2.6, Sodium 144, Potassium 3.3 L, Chloride 111 H, Carbon Dioxide 20.0 L, Anion Gap 13, BUN 88 H, Creatinine 4.12 H, Estim Creat Clear Calc 8.18, Est GFR (MDRD) Af Amer 14 L, Est GFR (MDRD) Non-Af 11 L, BUN/Creatinine Ratio 21.4 H, Glucose 185 H, Calcium 6.7 L, Total Bilirubin 1.40 H, AST 1826 H, ALT 1112 H, Alkaline Phosphatase 194 H, Total Creatine Kinase 406 H, Total Protein 4.5 L, Albumin 1.7 L, Globulin 2.8, Albumin/Globulin Ratio 0.6 L, PTH Intact 620.2 H, Acetaminophen 10.3 Imaging Radiology Impression Brain CT 02/26/24 18:04 IMPRESSION: No acute findings. Microvascular ischemia. Atrophy. Electronically Signed: Kate Gerardo MD at 19:51 EST Reading Location ID and State: [place] Ara[place] MD Tel , Service support , Chest X-Ray 02/26/24 18:04 IMPRESSION: No radiographic evidence of acute cardiopulmonary disease. Electronically Signed: Kate Gerardo MD at 19:34 EST Reading Location ID and State: [place] Araiza MD Tel , Service support , Abdomen/Pelvis CT 02/26/24 19:29 IMPRESSION: 1. No acute findings. 2. Nonobstructing renal calculi. Electronically Signed: Kate Gerardo MD at 20:23 EST Reading Location ID and State: [place] Araiza MD Tel , Service support , Charges/Coding Visit Charges Inpatient E&M: 93465 Init Hosp L3
[2024-02-27] MEDS: Potassium Chloride 10mEq/100mL 10 MEQ/100 ML IV.SOLN. 100 MEQ IV BOLUS ×4 (09:26→12:32)
[2024-02-27] MEDS: Pantoprazole Sodium 40 MG in 0.9% Normal Saline (100mL MB+) 100 ML 330 MG IV (09:32)
[2024-02-27] MEDS: Linezolid 600 MG 600 MG/300 ML BAG 200 MG IV ×2 (09:53→21:16)
--- NOTE | 2024-02-27 11:19 | CASEMGMT ---
RN CM Assessment Pt is currently A&Ox1 to self only and is unable to answer this RN CM questions for assessment accordingly. TC to pt NOKTiffanie (Daughter). Tiffanie is agreeable to answering this RN CM questions for assessment. Care providers, pharmacy, and demographics verified. Admitting dx: Sepsis, UTI, ARF, Acute Liver Failure, AMS LACE Strata: 2 PCP: Rio Oconnor Specialists: Denies Preferred Pharmacy: [facility] Insurance: [employer] [facility] Prescription Benefit: Yes LNOK: Tiffanie Johnson (Daughter) Living Arrangements: Pt lives with her daughter, NATALIA, and 2 grandchildren (Ages 12 & 17) in a single story home with 2 steps to enter from the garage or 4 steps to enter from the front, with handrails ADLs/IADLs: At baseline, pt daughter states that the pt is able to stay home alone for a couple hours at a time. Pt daughter states that she can normally use the bathroom by herself but that she has to cook for the pt, prepare meds, and help shower the pt. Transportation: Pt daughter DME: [place], [place], W/C, Shower chair, grab bars HHC/SNF: Denies history. Per chart review, it appears that during the last pt admission, HH was unobtainable. Plan: TBD. Anticipate SNF vs return home, follow for HHC needs. Current 6-Click score is 17. Therapy evals pending. Pt daughter states that she would be comfortable with the pt returning home, as long as the pt can maintain some independence. Tiffanie states that her and her work and will not be able to provide 24/7 care for the pt. Tiffanie states that she would be agreeable for the pt to go to a SNF if further therapy is recommended. Care Management to continue to follow. Tiffanie denies further questions or concerns at this time. Lita Owusu RN, CM
[2024-02-27] MEDS: Piperacil/Tazobactam 3.375 GM in 0.9% Normal Saline (50mL MB+) 50 ML IV ×2 (11:26→21:16)
[2024-02-27 13:00] LABS: Vitamin B12 > 2000 pg/mL (211-911)
--- NOTE | 2024-02-27 16:39 | PN.HOSP_ITS ---
Reason for Visit Reason for Visit: Diagnoses Sepsis, unspecified organism (02/26/24) Metabolic encephalopathy (02/26/24) Hypotension, unspecified (02/26/24) Acute and subacute hepatic failure without coma (02/26/24) Rhabdomyolysis (02/26/24) Acute kidney failure, unspecified (02/26/24) Urinary tract infection, site not specified (02/26/24) Other symptoms and signs concerning food and fluid intake (02/26/24) Elevation of levels of liver transaminase levels (02/26/24) Personal history of other mental and behavioral disorders (02/26/24) Subjective Subjective Patient was seen and examined today, she does not appear in any distress. Patient was seen by critical care today. Objective Data Objective Data Vital Signs: Vital Signs Temp Pulse Resp BP Pulse Ox O2 Del Method 98.4 F 88 20 H 114/48 L 97 Room Air 02/27/24 12:00 02/27/24 16:00 02/27/24 16:00 02/27/24 16:00 02/27/24 16:00 02/27/24 16:00 Oxygen Delivery Method Room Air Weight: 47.2 kg Body Mass Index (BMI) 18.4 Intake & Output: Intake and Output for Last 24 Hours 02/25/24 02/26/24 02/27/24 23:59 23:59 23:59 Intake Total 3744.1 / 3744.1 3514.53 / 3514.53 Balance 3744.1 / 3744.1 3514.53 / 3514.53 Lab / Micro Data 02/27/24 02:25 02/27/24 02:25 Labs: Laboratory Results - last 24 hr 02/26/24 18:28: WBC 12.0 H, RBC 4.81, Hgb 13.6, Hct 42.9, MCV 89.2, MCH 28.3, M CHC 31.7 L, RDW Std Deviation 43.0, RDW Coeff of Ed 13.2, Plt Count 281, MPV 11.0, Immature Gran % (Auto) 1.100 H, Neut % (Auto) 79.2 H, Lymph % (Auto) 9.0 L , Miner % (Auto) 4.6, Eos % (Auto) 5.7 H, Baso % (Auto) 0.4, Absolute Neuts (auto) 9.5 H, Absolute Lymphs (auto) 1.08, Nucleated RBC % 1.3, Toxic Vacuolation 1+, Platelet Estimate ADEQUATE, Anisocytosis 1+, Tear Drop Cells RARE, Ovalocytes 1+, PT 24.2 H, INR 2.2, APTT 26.6, Sodium 139, Potassium 3.5, Chloride 103, Carbon Dioxide 20.0 L, Anion Gap 16 H, BUN 98 H, Creatinine 5.24 H , Estim Creat Clear Calc 6.46, Est GFR (MDRD) Af Amer 10 L, Est GFR (MDRD) Non- Af 9 L, BUN/Creatinine Ratio 18.7, Glucose 131 H, Lactic Acid 4.3 H*, Calcium 8.0 L, Phosphorus 6.2 H, Total Bilirubin 2.50 H, AST 3827 H, ALT 1931 H, A lkaline Phosphatase 281 H, Total Protein 6.2 L, Albumin 2.7 L, Globulin 3.5, A lbumin/Globulin Ratio 0.8 L, Lipase 79 H 02/26/24 18:45: Urine Color Brown, Urine Clarity Turbid, Urine pH 6.5, Ur Specific [place] 1.025, Urine Protein 100 H, Urine Glucose (UA) 50 H, Urine Ketones 15 H, Urine Occult Blood 150 H, Urine Nitrite Positive H, Urine Bilirubin 3 H, Urine Urobilinogen 4 H, Ur Leukocyte Esterase 500 H, Urine RBC 0- 5 SEEN, Urine WBC >100 SEEN, Ur Squamous Epith Cells 10-25 SEEN, Amorphous Sediment 4+, Urine Bacteria 3+, Urine Mucus 0 SEEN, Urine Opiates Screen NEGATIVE, Urine Methadone Screen NEGATIVE, Ur Barbiturates Screen NEGATIVE, Ur Phencyclidine Scrn NEGATIVE, Ur Amphetamines Screen NEGATIVE, MDMA (Ecstasy) Screen NEGATIVE, U Benzodiazepines Scrn NEGATIVE, Urine Cocaine Screen NEGATIVE, U Cannabinoids Screen NEGATIVE, Ur Drug Screen Comment 02/26/24 21:20: Acetaminophen 5.2 L, Ethyl Alcohol < 3.0 02/26/24 22:20: Lactic Acid 2.8 H*, Magnesium 1.7, Total Creatine Kinase 333 H, Troponin I High Sens 23, Vitamin B12 > 2000 H, Folate 26.50, TSH 0.339 L 02/26/24 22:50: Ammonia < 10.0 L 02/26/24 22:51: Ionized Calcium 0.94 L 02/27/24 02:25: WBC 9.0, RBC 3.22 L, Hgb 9.2 L, Hct 29.2 L, MCV 90.7, MCH 28.6, MCHC 31.5 L, RDW Std Deviation 43.8, RDW Coeff of Ed 13.2, Plt Count 234, MPV 10.9, Immature Gran % (Auto) 1.300 H, Neut % (Auto) 85.4 H, Lymph % (Auto) 8.3 L , Miner % (Auto) 4.6, Eos % (Auto) 0.1, Baso % (Auto) 0.3, Absolute Neuts (auto) 7.6, Absolute Lymphs (auto) 0.74 L, Nucleated RBC % 0.8, PT 27.3 H, INR 2.6, Sodium 144, Potassium 3.3 L, Chloride 111 H, Carbon Dioxide 20.0 L, Anion Gap 13, BUN 88 H, Creatinine 4.12 H, Estim Creat Clear Calc 8.18, Est GFR (MDRD) Af Amer 14 L, Est GFR (MDRD) Non-Af 11 L, BUN/Creatinine Ratio 21.4 H, Glucose 185 H, Calcium 6.7 L, Total Bilirubin 1.40 H, AST 1826 H, ALT 1112 H, Alkaline Phosphatase 194 H, Total Creatine Kinase 406 H, Total Protein 4.5 L, Albumin 1.7 L, Globulin 2.8, Albumin/Globulin Ratio 0.6 L, PTH Intact 620.2 H, Acetaminophen 10.3 Micro: Microbiology 02/26/24 18:45 Urine, Random Urine Culture - Preliminary Gram negative alphonso Radiography Diagnostic Testing: Radiology Impression Brain CT 02/26/24 18:04 IMPRESSION: No acute findings. Microvascular ischemia. Atrophy. Electronically Signed: Kate Gerardo MD at 19:51 EST Reading Location ID and State: Karine Araiza MD Tel , Service support , Chest X-Ray 02/26/24 18:04 IMPRESSION: No radiographic evidence of acute cardiopulmonary disease. Electronically Signed: Kate Gerardo MD at 19:34 EST Reading Location ID and State: Karine Araiza MD Tel , Service support , Abdomen/Pelvis CT 02/26/24 19:29 IMPRESSION: 1. No acute findings. 2. Nonobstructing renal calculi. Electronically Signed: Kate Gerardo MD at 20:23 EST , Physical Exam Const alert and no apparent distress Constitutional Narrative: Patient appears cachectic General Appearance: cooperative and well developed Orientation / Consciousness: awake and oriented to person HEENT normocephalic, head/scalp atraumatic and moist oral mucous membranes Eyes PERRL, EOMs intact bilaterally and conjunctivae normal Neck supple, no JVD, thyroid normal and no carotid bruits General: trachea midline Resp normal respiratory effort, no retractions, no use of accessory muscles and clear to auscultation bilaterally Auscultation: Negative for rales, rhonchi or wheezes Cardio regular rate, regular rhythm, S1 normal heart sound, S2 normal heart sound, no murmurs, no rub and no gallops GI normal to inspection, nondistended, normoactive bowel sounds, soft to palpation, non-tender and non-distended Extremity no clubbing, cyanosis or edema Skin no rashes or lesions noted General Skin Exam: no breakdown Neuro oriented x3, CN's II-XII intact bilaterally, moves all extremities, no focal motor deficits and no sensory deficits noted Sensorium / Orientation: awake and alert Speech: speech normal Psych Psych Narrative: Patient has flat affect Assessment & Plan Assessment/Plan (1) Sepsis: PLAN: Plan 1. 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
--- NOTE | 2024-02-27 18:02 | CON.PCM.GI_ITS ---
HPI Consult Data Date of Consult: 02/27/24 HPI Narrative Reason for Consultation: Acute liver failure HPI Narrative: CURTIS JOLLY, is a 78 F presented to [facility] ER with her family complaining of altered mental status with poor oral intake. Ms. Jolly reports her symptoms began approximately 5 days prior to admission with decreased appetite and minimal eating or drinking. Though her recall of the details of recent events is poor she denies associated nausea, vomiting, diarrhea or cough but she does admit to decreased urinary output with dark cloudy urine along with new persistent tremor in her upper extremities that she is very concerned about. Patient denies history of alcohol abuse, known chronic liver disease or recent significant acetaminophen use. In the ER she was noted to have a UA positive for Acute Cystitis without hematuria complicated by laboratory evidence of sepsis with Leukocytosis of 12K and Left-shift of 1.1% with lactic acidosis of 4.3 mmol/L present on admission compounded by Severe Acute Renal Failure with serum creatinine of 5.24 mg/dL and BUN of 98 mg/dL present on admission (up from her baseline of 1.87 mg/dL and 38 mg/dL) along with evidence of Severe Acute Liver Failure evidenced by elevated total bilirubin of 2.5 mg/dL with AST of 3,008 and ALT 1,931 U/L with alkaline phosphatase of 281 U/L further exacerbated by INR of 2.2. She had a CT scan abdomen pelvis which showed no acute disease and a homogeneous liver. There was no splenomegaly seen or any sign of variceal disease. There was also no signs of portal hypertension. She had a chest x-ray that showed no acute cardiopulmonary disease. Her urinalysis was positive for gram-negative rods. She has been on ceftriaxone, linezolid and received a dose of Zosyn in the emergency room along with a dose of cefepime. She does not take any Tylenol products as per family. Acute hepatitis panel is pending. Her urine drug screen was negative for any street drugs specifically cocaine or amphetamines. [facility] Medical History Hypoxia History of GI bleed Stage 3b chronic kidney disease (CKD) COPD (chronic obstructive pulmonary disease) Dementia History of TIAs Carotid disease, bilateral Former tobacco use Anxiety and depression HLD (hyperlipidemia) HTN (hypertension) Home Medications ?Medication ?Instructions ?Recorded ?Last Taken ?Type aspirin 81 mg chewable tablet 81 mg PO DAILY@0800 heart health 11/08/18 Unknown History atenolol 25 mg tablet 25 mg PO DAILY blood pressure 11/08/18 Unknown History atorvastatin 80 mg tablet 80 mg PO DAILY cholesterol 11/08/18 Unknown History citalopram 40 mg tablet 20 mg PO DAILY anti-depressant 11/08/18 Unknown History lisinopril 10 mg tablet 10 mg PO DAILY Bp 11/08/18 Unknown History omeprazole 20 mg capsule,delayed 20 mg PO DAILY GERD 02/18/23 Unknown History release dexamethasone 6 mg tablet 6 mg PO DAILY #8 tabs 02/21/23 Unknown Rx oseltamivir 30 mg capsule 30 mg PO DAILY 3 days #3 caps 02/21/23 Unknown Rx pseudoephedrine-guaifenesin ER 60 1 tab PO BID cold symptoms #14 tabs 02/21/23 Unknown Rx mg-600 mg tablet,extend release 12hr (Mucinex D) Allergy/AdvReac Type Severity Reaction Status Date / Time No Known Allergies Allergy Verified 02/26/24 17:42 Family History Mother Kidney disease Father Lymphoma Surgical History History of carotid endarterectomy History of shoulder surgery Previous back surgery Social History household members: none Smoking Status: Former smoker how long ago did patient quit smoking: Smoked 1.5 pack/day quitting 09/23/2007, smoked 40 years. alcohol intake: current alcohol intake frequency: 0-2 drinks per day substance use type: does not use ROS ROS Narrative 10 systems were reviewed with pertinent positives as noted in the HPI above. Physical Exam Const alert and no apparent distress Constitutional Narrative: Patient appears cachectic General Appearance: cooperative and well developed Orientation / Consciousness: awake and oriented to person HEENT normocephalic, head/scalp atraumatic and moist oral mucous membranes Eyes PERRL, EOMs intact bilaterally and conjunctivae normal Neck supple, no JVD, thyroid normal and no carotid bruits General: trachea midline Resp normal respiratory effort, no retractions, no use of accessory muscles and clear to auscultation bilaterally Auscultation: Negative for rales, rhonchi or wheezes Cardio regular rate, regular rhythm, S1 normal heart sound, S2 normal heart sound, no murmurs, no rub and no gallops GI normal to inspection, nondistended, normoactive bowel sounds, soft to palpation, non-tender and non-distended Extremity no clubbing, cyanosis or edema Skin no rashes or lesions noted General Skin Exam: no breakdown Neuro oriented x3, CN's II-XII intact bilaterally, moves all extremities, no focal motor deficits and no sensory deficits noted Sensorium / Orientation: awake and alert Speech: speech normal Psych Psych Narrative: Patient has flat affect Lab / Micro Data 02/27/24 02:25 02/27/24 02:25 Labs: Laboratory Results - last 24 hr 02/26/24 18:28: WBC 12.0 H, RBC 4.81, Hgb 13.6, Hct 42.9, MCV 89.2, MCH 28.3, M CHC 31.7 L, RDW Std Deviation 43.0, RDW Coeff of Ed 13.2, Plt Count 281, MPV 11.0, Immature Gran % (Auto) 1.100 H, Neut % (Auto) 79.2 H, Lymph % (Auto) 9.0 L , [place] % (Auto) 4.6, Eos % (Auto) 5.7 H, Baso % (Auto) 0.4, Absolute Neuts (auto) 9.5 H, Absolute Lymphs (auto) 1.08, Nucleated RBC % 1.3, Toxic Vacuolation 1+, Platelet Estimate ADEQUATE, Anisocytosis 1+, Tear Drop Cells RARE, Ovalocytes 1+, PT 24.2 H, INR 2.2, APTT 26.6, Sodium 139, Potassium 3.5, Chloride 103, Carbon Dioxide 20.0 L, Anion Gap 16 H, BUN 98 H, Creatinine 5.24 H , Estim Creat Clear Calc 6.46, Est GFR (MDRD) Af Amer 10 L, Est GFR (MDRD) Non- Af 9 L, BUN/Creatinine Ratio 18.7, Glucose 131 H, Lactic Acid 4.3 H*, Calcium 8.0 L, Phosphorus 6.2 H, Total Bilirubin 2.50 H, AST 3827 H, ALT 1931 H, A lkaline Phosphatase 281 H, Total Protein 6.2 L, Albumin 2.7 L, Globulin 3.5, A lbumin/Globulin Ratio 0.8 L, Lipase 79 H 02/26/24 18:45: Urine Color Brown, Urine Clarity Turbid, Urine pH 6.5, Ur Specific [place] 1.025, Urine Protein 100 H, Urine Glucose (UA) 50 H, Urine Ketones 15 H, Urine Occult Blood 150 H, Urine Nitrite Positive H, Urine Bilirubin 3 H, Urine Urobilinogen 4 H, Ur Leukocyte Esterase 500 H, Urine RBC 0- 5 SEEN, Urine WBC >100 SEEN, Ur Squamous Epith Cells 10-25 SEEN, Amorphous Sediment 4+, Urine Bacteria 3+, Urine Mucus 0 SEEN, Urine Opiates Screen NEGATIVE, Urine Methadone Screen NEGATIVE, Ur Barbiturates Screen NEGATIVE, Ur Phencyclidine Scrn NEGATIVE, Ur Amphetamines Screen NEGATIVE, MDMA (Ecstasy) Screen NEGATIVE, U Benzodiazepines Scrn NEGATIVE, Urine Cocaine Screen NEGATIVE, U Cannabinoids Screen NEGATIVE, Ur Drug Screen Comment 02/26/24 21:20: Acetaminophen 5.2 L, Ethyl Alcohol < 3.0 02/26/24 22:20: Lactic Acid 2.8 H*, Magnesium 1.7, Total Creatine Kinase 333 H, Troponin I High Sens 23, Vitamin B12 > 2000 H, Folate 26.50, TSH 0.339 L 02/26/24 22:50: Ammonia < 10.0 L 02/26/24 22:51: Ionized Calcium 0.94 L 02/27/24 02:25: WBC 9.0, RBC 3.22 L, Hgb 9.2 L, Hct 29.2 L, MCV 90.7, MCH 28.6, MCHC 31.5 L, RDW Std Deviation 43.8, RDW Coeff of Ed 13.2, Plt Count 234, MPV 10.9, Immature Gran % (Auto) 1.300 H, Neut % (Auto) 85.4 H, Lymph % (Auto) 8.3 L , [place] % (Auto) 4.6, Eos % (Auto) 0.1, Baso % (Auto) 0.3, Absolute Neuts (auto) 7.6, Absolute Lymphs (auto) 0.74 L, Nucleated RBC % 0.8, PT 27.3 H, INR 2.6, Sodium 144, Potassium 3.3 L, Chloride 111 H, Carbon Dioxide 20.0 L, Anion Gap 13, BUN 88 H, Creatinine 4.12 H, Estim Creat Clear Calc 8.18, Est GFR (MDRD) Af Amer 14 L, Est GFR (MDRD) Non-Af 11 L, BUN/Creatinine Ratio 21.4 H, Glucose 185 H, Calcium 6.7 L, Total Bilirubin 1.40 H, AST 1826 H, ALT 1112 H, Alkaline Phosphatase 194 H, Total Creatine Kinase 406 H, Total Protein 4.5 L, Albumin 1.7 L, Globulin 2.8, Albumin/Globulin Ratio 0.6 L, PTH Intact 620.2 H, Acetaminophen 10.3 Micro: Microbiology 02/26/24 18:45 Urine, Random Urine Culture - Preliminary Gram negative alphonso Imaging Radiology Impression Brain CT 02/26/24 18:04 IMPRESSION: No acute findings. Microvascular ischemia. Atrophy. Electronically Signed: Kate Gerardo MD at 19:51 EST Reading Location ID and State: Karine Araiza MD Tel , Service support , Chest X-Ray 02/26/24 18:04 IMPRESSION: No radiographic evidence of acute cardiopulmonary disease. Electronically Signed: Kate Gerardo MD at 19:34 EST Reading Location ID and State: Karine Araiza MD Tel , Service support , Abdomen/Pelvis CT 02/26/24 19:29 IMPRESSION: 1. No acute findings. 2. Nonobstructing renal calculi. Electronically Signed: Kate Gerardo MD at 20:23 EST Reading Location ID and State: Karine Araiza MD Tel , Service support , Assessment & Plan Assessment/Plan (1) Acute metabolic encephalopathy: (2) Acute liver failure: QUALIFIERS: Hepatic coma status: without hepatic coma Qualified Code(s): K72.00 - Acute and subacute hepatic failure without coma (3) Sepsis associated hypotension: (4) Acute UTI: (5) Acute renal failure: QUALIFIERS: Acute renal failure type: unspecified Qualified Code(s): N17.9 - Acute kidney failure, unspecified (6) Rhabdomyolysis: QUALIFIERS: Rhabdomyolysis type: non-traumatic Qualified Code(s): M62.82 - Rhabdomyolysis (7) Transaminitis: (8) Poor fluid intake: (9) History of dementia: PLAN: Plan 78-year-old who presents with altered mental status, severe dehydration leading to Severe Acute Renal Failure with serum creatinine of 5.24 mg/dL and BUN of 98 mg/dL present on admission. She was also discovered to have severe Acute Liver Failure evidenced by elevated total bilirubin of 2.5 mg/dL with AST of 3,008 and ALT 1,931 U/L with alkaline phosphatase of 281 U/L further exacerbated by INR of 2.2. I requested that she be given 5 mg of IV vitamin K. Her current INR is 2.2. Also requested that she be started on N-acetylcysteine for presumably acute ischemic colitis. As a differential diagnosis for acute liver failure in the setting of severe hepatocellular injury with increased AST to ALT greater than 9000 would be ischemic colitis, autoimmune hepatitis, Rommel's disease, drug-induced liver injury and specifically Tylenol, Non-viral hepatitis acute viral hepatitis such as CMV, EBV. ?N-acetylcysteine (NAC), which is sometimes used as a potential treatment for acute ischemic hepatitis, a condition where the liver is damaged due to reduced blood flow, by acting as an antioxidant and potentially protecting liver cells from damage caused by ischemia. NAC works by increasing glutathione levels in the liver, which acts as a potent antioxidant, potentially mitigating damage from free radicals produced during ischemia. Some research suggests NAC may improve liver function and potentially reduce the need for liver transplantation in patients with ischemic hepatitis, particularly when used early in the disease course.The primary treatment for acute ischemic hepatitis remains addressing the underlying cause of decreased blood flow, such as managing heart failure, correcting hypotension, and treating sepsis. Also recommend to check for influenza, COVID-19 virus, acute EBV, CMV, anti- smooth muscle antibody, antiliver muscle kidney antibodies, await acute viral hepatitis antibodies. Give 10 mg of IV vitamin K. Repeat INR and check ammonia level. Charges/Coding Visit Charges Inpatient E&M: 36891 Init Hosp L3
[2024-02-27 20:17] LABS: LDH 311 U/L (84-246)
[2024-02-27 20:25] LABS: Ammonia < 10.0 umol/L (11-32)
[2024-02-27] MEDS: Ensure Plus High Protein 120 ML LIQUID PO (21:42)
[2024-02-27] MEDS: MELATONIN 3 MG TABLET 6 MG PO (21:42)
[2024-02-28] VITALS (13 sets, daily range): BP systolic 116–164; BP diastolic 53–80; PULSE 70–88; RESP 13–19; TEMP 36.4–36.7; O2SAT 94–100; BMI 19.8
[2024-02-28 05:06] LABS: HEPATITIS B SURFACE AG Negative (Negative); Hep C Antibodies Non Reactive (Non Reactive); Hepatitis A IgM Antibody Negative (Negative); Hepatitis B Core AB IgM Negative (Negative)
--- NOTE | 2024-02-28 07:26 | PN.CC_ITS ---
Assessment & Plan Assessment/Plan (1) Sepsis: PLAN: Plan RECOMMENDATIONS: 1. Continue antimicrobials to complete 7 days of therapy. 2. Gentle IV fluid hydration as tolerated. 3. Continue PPI therapy. 4. Aggressive electrolyte repletion. 5. The patient is medically stable for transfer out of the intensive care unit. Will sign off at this time. IMPRESSIONS: 1. Sepsis The patient presented to the hospital with sepsis due to E. coli UTI with acute sepsis related organ dysfunction as evidenced by acute kidney injury, lactic acidemia and hyperbilirubinemia. She did receive supplemental IV fluid hydration but has remained otherwise hemodynamically stable. Plan to continue antimicrobials to complete 7 days of therapy. 2. Acute kidney injury Clinical concern for prerenal etiology in the setting of #1. The patient's creatinine is improving with volume expansion. Continue to monitor urine output for now. There is no current indication for renal replacement therapy. 3. Acute liver injury Most likely secondary to ischemic hepatitis in the setting of sepsis. The patient did receive N-acetylcysteine and judicious IV fluid resuscitation. Her liver function parameters have improved significantly. Plan to continue current supportive care. 4. Encephalopathy Most likely related to presenting infection coupled with baseline dementia. Continue supportive measures as noted above. 5. History of hypertension/hyperlipidemia/depression/anxiety Complicates care, management, recovery and prognosis. Continue to hold home medications for now. This note was generated with [employer] dictation software. It may contain incorrect words, spelling, and punctuation that were not noted in checking the note before signing. Subjective Subjective The patient was seen and examined at the bedside this morning. Events from the last 24 hours have been reviewed. The patient is currently afebrile, hemodynamically stable and maintaining appropriate oxygen saturations on room air. The patient remains pleasantly confused this morning. Hemoglobin this morning was noted to be 8.4 g/dL. Platelet count is within normal limits. INR is improved at 1.6. Potassium is low at 3.2 with a creatinine of 3.36. AST and ALT have improved. Objective Data Objective Data The patient's most recent lab work, culture data and imaging studies have all been personally reviewed. Preliminary urine culture is demonstrating growth of pansensitive E. coli. Vital Signs: Vital Signs Temp Pulse Resp BP Pulse Ox O2 Del Method 98.0 F 73 19 H 164/61 H 97 Room Air 02/28/24 04:00 02/28/24 07:21 02/28/24 07:00 02/28/24 07:00 02/28/24 07:00 02/28/24 07:00 Oxygen Delivery Method Room Air Weight: 112 lb 3.445 oz Body Mass Index (BMI) 19.8 Intake & Output: Intake and Output for Last 24 Hours 02/26/24 02/27/24 02/28/24 23:59 23:59 23:59 Intake Total 3744.1 / 3744.1 3914.53 / 3914.53 50 / 50 Balance 3744.1 / 3744.1 3914.53 / 3914.53 50 / 50 Lab / Micro Data Attestation: I reviewed the patient's lab results. 02/28/24 07:40 02/28/24 07:40 Labs: Laboratory Results - last 24 hr 02/26/24 18:45: Urine Color Brown, Urine Clarity Turbid, Urine pH 6.5, Ur Specific Omar 1.025, Urine Protein 100 H, Urine Glucose (UA) 50 H, Urine Ketones 15 H, Urine Occult Blood 150 H, Urine Nitrite Positive H, Urine Bilirubin 3 H, Urine Urobilinogen 4 H, Ur Leukocyte Esterase 500 H, Urine RBC 0- 5 SEEN, Urine WBC >100 SEEN, Ur Squamous Epith Cells 10-25 SEEN, Amorphous Sediment 4+, Urine Bacteria 3+, Urine Mucus 0 SEEN 02/26/24 22:20: Vitamin B12 > 2000 H 02/27/24 02:25: Hepatitis A IgM Ab Negative, Hep Bs Antigen Negative, Hep B Core IgM Ab Negative, Hepatitis C Ab (EIA) Non Reactive, Hep C Ab Comment Comment 02/27/24 19:37: Ammonia < 10.0 L, Lactate Dehydrogenase 311 H Micro: Microbiology 02/26/24 18:45 Urine, Random Urine Culture - Preliminary Gram negative alphonso Physical Exam Const alert and no apparent distress General Appearance: cooperative HEENT normocephalic and head/scalp atraumatic Eyes PERRL, EOMs intact bilaterally and conjunctivae normal Neck supple General: trachea midline Chest inspection of chest normal Resp normal respiratory effort Auscultation: Negative for rales, rhonchi or wheezes Cardio regular rate and regular rhythm GI normal to inspection, nondistended, normoactive bowel sounds Extremity no clubbing, cyanosis or edema Skin no rashes or lesions noted Neuro CN's II-XII intact bilaterally, moves all extremities and no focal motor deficits Psych cooperative Charges/Coding Visit Charges Inpatient E&M: 45924 Subs Hosp L2
[2024-02-28 07:57] LABS: Absolute Neutrophil Count 3.2 X10^3/uL (2.0-7.7); Basophil# 0.06 X10^3/uL; Basophil% 1.1 % (0-1); Eosinophil# 0.17 X10^3/uL; Eosinophils% 3.1 % (0-5); Hematocrit 26.2 % (37-47); Hemoglobin 8.4 g/dL (12.0-15.0); Lymphocyte % 27.1 % (19-41); Mean Corp Hgb Conc 32.1 g/dL (32-36); Mean Corpuscular Hgb 28.5 pg (27.0-32.0); Mean Corpuscular Volume 88.8 fL (81-99); Mean Platelet Vol. 10.6 fl (6.2-12.0); Monocyte# 0.49 X10^3/uL; Monocyte% 8.8 % (0-10); NRBC Flagged by Analyzer 0 % (0-5); Neutrophil # 3.24 X10^3/uL (2.7-7.7); Neutrophil % 58.5 % (47-70); Platelet Count 233 K/mm3 (150-450); RBC Distribution Width CV 13.3 % (11.6-14.6); RBC Distribution Width SD 43.2 fl (35.1-43.9); Red Blood Count 2.95 M/mm3 (4.2-5.4); White Blood Count 5.5 K/mm3 (4.4-11.0)
[2024-02-28 08:05] LABS: International Normalized Ratio 1.6
[2024-02-28 08:06] LABS: Partial Thromboplast Time 29.3 Seconds (24.1-36.2)
[2024-02-28 08:25] LABS: ALB/GLOB Ratio 0.7 RATIO (0.9-2.4); AST(SGOT) 420 U/L (15-37); Alanine Aminotransfer ALT/SGPT 524 U/L (13-56); Albumin, Serum 1.9 g/dL (3.2-5.0); Alkaline Phosphatase 174 U/L (45-117); Anion Gap 7 (5-15); BUN 75 mg/dL (7-18); BUN/Creat Ratio 22.3 RATIO (10-20); Calcium,Total 8.4 mg/dL (8.5-10.1); Chloride 116 mmol/L (98-107); Creatinine, Serum 3.36 mg/dL (0.55-1.02); EST Glomerular Filtration Rate 14 mL/min (>60); Est Glom Filt Rate - Afr Amer 17 mL/min (>60); Estimated Creatinine Clearance 11.45 ml/min; Globulin 2.6 g/dL (2.2-4.2); Glucose 119 mg/dL (74-106); Potassium 3.2 mmol/L (3.5-5.1); Protein, Total 4.5 g/dL (6.4-8.2); Sodium Level 144 mmol/L (136-145)
[2024-02-28] MEDS: Pantoprazole Sodium 40 MG in 0.9% Normal Saline (100mL MB+) 100 ML 330 MG IV (08:28)
--- NOTE | 2024-02-28 08:46 | CASEMGMT ---
Discharge Planning A list of?SNF providers including quality and resource use data and consistent with the patient's preferred geographic region, medical needs, and insurance network was created in [employer].? This list was provided to the SW. Theresa Zacarias Discharge Planning Asst.
[2024-02-28] MEDS: Linezolid 600 MG 600 MG/300 ML BAG 200 MG IV (09:01)
--- NOTE | 2024-02-28 10:19 | CASEMGMT ---
Social Work Pt moved to PCU today from ICU. SW called daughter to review discharge plan, as it is anticipated pt may benefit from SNF stay. Message left, SW will speak w/daughter when she returns call. SHANNON Guevara
[2024-02-28] MEDS: 0.9% Normal Saline (1000mL) 1,000 ML 75 ML IV ×2 (10:40→22:33)
[2024-02-28] MEDS: Ensure Plus High Protein 120 ML LIQUID PO ×4 (10:41→21:29)
[2024-02-28] MEDS: Piperacil/Tazobactam 3.375 GM in 0.9% Normal Saline (50mL MB+) 50 ML IV ×2 (10:42→21:29)
[2024-02-28] MEDS: amLODIPine 5 MG Tablet PO (10:46)
--- NOTE | 2024-02-28 10:49 | CASEMGMT ---
Social Work SW spoke w/daughter Tiffanie in regard to discharge plan. Tiffnaie states pt would need to be very independent in order to go home. SW reviewed PT notes, pt is not able at this time to manage at home without assist for ambulation and ADLs. Daughter agreeable to SNF referral. SW reviewed w/Tiffanie over the phone the list from [facility] of prison facilities in network w/pt's insurance, in pt's preferred geographic area, and complete w/quality and resource use data. Daughter would like a referral sent to [facility]. As per physician pt will be here through the weekend, referral will be sent today. SHANNON Guevara
--- NOTE | 2024-02-28 11:08 | CASEMGMT ---
Addendum entered by Theresa Zacarias 02/28/24 12:16: CC declined. SW updated. Theresa Zacarias DC Planning Asst. Original Note: Discharge Planning Referral sent to [facility]. Theresa Zacarias DC Planning Asst.
--- NOTE | 2024-02-28 12:37 | CASEMGMT ---
Social Work [facility] cannot take pt. SW called daughter for additional choices, message left. SHANNON Guevara
--- NOTE | 2024-02-28 13:13 | CASEMGMT ---
Addendum entered by Bharati Jorgensen 02/28/24 13:28: Social Work Referral sent to [facility]. SW will continue to follow. HSANNON Guevara Original Note: Social Work SW spoke w/daughter in regard to discharge plan. SW let her know [facility] cannot take pt, asked what would be the next choice. Daughter would like a referral to [facility], referral will be made today. SW offered to leave the SNF list in the room for her to review, and if she would like a referral to a different facility she can let SW know Saturday and we can send additional referrals. Physician had told SW earlier pt would be here through the weekend. Daughter states understanding, will review the list. She states pt will not want to go, she thought it better to not tell pt just yet. SW also explained if pt improves the plan can always change to home. SW will continue to follow. SHANNON Guevara
[2024-02-28] MEDS: Potassium Chloride Oral Tablet 20 MEQ 40 MEQ PO (14:19)
--- NOTE | 2024-02-28 14:29 | CASEMGMT ---
Discharge Planning [facility] accepted and is foc. Precert has not been started. Theresa Zacarias DC Planning Asst.
--- NOTE | 2024-02-28 15:40 | PN.HOSP_ITS ---
Reason for Visit Reason for Visit: Diagnoses Sepsis, unspecified organism (02/26/24) Metabolic encephalopathy (02/26/24) Hypotension, unspecified (02/26/24) Acute and subacute hepatic failure without coma (02/26/24) Rhabdomyolysis (02/26/24) Acute kidney failure, unspecified (02/26/24) Urinary tract infection, site not specified (02/26/24) Other symptoms and signs concerning food and fluid intake (02/26/24) Elevation of levels of liver transaminase levels (02/26/24) Personal history of other mental and behavioral disorders (02/26/24) Subjective Subjective Patient was seen and examined today, she is alert but confused. Patient has a history of dementia and lives alone, she told me she lives with her sister. Patient's liver enzymes are improved today, her renal functions are better today also. I have elected to move her out of the ICU to PCU and place her on some IV fluids. Labs will be repeated tomorrow. Patient's urine culture grew out E. coli, I have elected to stop her linezolid and keep her on Zosyn for now. Patient will need placement in a [place] [facility] facility at least short-term. Objective Data Objective Data Vital Signs: Vital Signs Temp Pulse Resp BP Pulse Ox O2 Del Method 98 F 88 17 116/53 L 98 Room Air 02/28/24 15:27 02/28/24 15:27 02/28/24 15:27 02/28/24 15:27 02/28/24 15:27 02/28/24 15:32 Oxygen Delivery Method Room Air Weight: 50.9 kg Body Mass Index (BMI) 19.8 Intake & Output: Intake and Output for Last 24 Hours 02/26/24 02/27/24 02/28/24 23:59 23:59 23:59 Intake Total 3744.1 / 3744.1 3914.53 / 3914.53 630 / 630 Balance 3744.1 / 3744.1 3914.53 / 3914.53 630 / 630 Lab / Micro Data 02/28/24 07:40 02/28/24 07:40 Labs: Laboratory Results - last 24 hr 02/27/24 02:25: Hepatitis A IgM Ab Negative, Hep Bs Antigen Negative, Hep B Core IgM Ab Negative, Hepatitis C Ab (EIA) Non Reactive, Hep C Ab Comment Comment 02/27/24 19:37: Ammonia < 10.0 L, Lactate Dehydrogenase 311 H 02/28/24 07:40: WBC 5.5, RBC 2.95 L, Hgb 8.4 L, Hct 26.2 L, MCV 88.8, MCH 28.5, MCHC 32.1, RDW Std Deviation 43.2, RDW Coeff of Ed 13.3, Plt Count 233, MPV 10.6, Immature Gran % (Auto) 1.400 H, Neut % (Auto) 58.5, Lymph % (Auto) 27.1, [place]flin % (Auto) 8.8, Eos % (Auto) 3.1, Baso % (Auto) 1.1 H, Absolute Neuts (auto) 3.2, Absolute Lymphs (auto) 1.50, Nucleated RBC % 0, PT 19.0 H, INR 1.6, APTT 29.3, Sodium 144, Potassium 3.2 L, Chloride 116 H, Carbon Dioxide 21.0, Anion Gap 7, BUN 75 H, Creatinine 3.36 H, Estim Creat Clear Calc 11.45, Est GFR (MDRD) Af Amer 17 L, Est GFR (MDRD) Non-Af 14 L, BUN/Creatinine Ratio 22.3 H, Glucose 119 H, Calcium 8.4 L, Total Bilirubin 1.40 H, AST 420 H, ALT 524 H, Alkaline Phosphatase 174 H, Total Protein 4.5 L, Albumin 1.9 L, Globulin 2.6, A lbumin/Globulin Ratio 0.7 L Micro: Microbiology 02/26/24 18:45 Urine, Random Urine Culture - Final Escherichia coli Physical Exam Narrative alert and no apparent distress Constitutional Narrative: Patient appears cachectic General Appearance: cooperative and well developed Orientation / Consciousness: awake and oriented to person HEENT normocephalic, head/scalp atraumatic and moist oral mucous membranes Eyes PERRL, EOMs intact bilaterally and conjunctivae normal Neck supple, no JVD, thyroid normal and no carotid bruits General: trachea midline Resp normal respiratory effort, no retractions, no use of accessory muscles and clear to auscultation bilaterally Auscultation: Negative for rales, rhonchi or wheezes Cardio regular rate, regular rhythm, S1 normal heart sound, S2 normal heart sound, no murmurs, no rub and no gallops GI normal to inspection, nondistended, normoactive bowel sounds, soft to palpation, non-tender and non-distended Extremity no clubbing, cyanosis or edema Skin no rashes or lesions noted General Skin Exam: no breakdown Neuro oriented x3, CN's II-XII intact bilaterally, moves all extremities, no focal motor deficits and no sensory deficits noted Sensorium / Orientation: awake and alert Speech: speech normal Psych Psych Narrative: Patient has flat affect Assessment & Plan Assessment/Plan (1) Sepsis: PLAN: Plan 1. Sepsis secondary to urinary tract infection-patient's antibiotic coverage was changed to Zosyn alone, linezolid was stopped #2 acute renal failure on a backdrop of probable chronic kidney disease stage IV-continue IV fluids and recheck labs #3 elevated liver enzymes-possibly secondary to shock liver from sepsis, continue to monitor LFTs, patient is being seen by gastroenterology #4 Dementia-complicates care, management, recovery, and prognosis rhabdomyolysis was ruled out Total clinical time spent by myself addressing the patient's medical issues, reviewing all of her data, and collaborating with patient's care team: 35 minutes Charges/Coding Visit Charges Inpatient E&M: 68558 Subs Hosp L2
[2024-02-28] MEDS: MELATONIN 3 MG TABLET 6 MG PO (22:33)
[2024-02-29] VITALS (7 sets, daily range): BP systolic 129–151; BP diastolic 58–73; PULSE 69–86; RESP 16–18; TEMP 36.4–36.6; O2SAT 96–99; BMI 19.8
[2024-02-29 06:48] LABS: Absolute Neutrophil Count 3.7 X10^3/uL (2.0-7.7); Basophil# 0.04 X10^3/uL; Basophil% 0.7 % (0-1); Eosinophils% 3.6 % (0-5); Hematocrit 24.5 % (37-47); Hemoglobin 7.9 g/dL (12.0-15.0); Lymphocyte % 19.8 % (19-41); Mean Corp Hgb Conc 32.2 g/dL (32-36); Mean Corpuscular Hgb 28.5 pg (27.0-32.0); Mean Corpuscular Volume 88.4 fL (81-99); Mean Platelet Vol. 10.9 fl (6.2-12.0); Monocyte# 0.47 X10^3/uL; Monocyte% 8.5 % (0-10); NRBC Flagged by Analyzer 0 % (0-5); Neutrophil # 3.71 X10^3/uL (2.7-7.7); Neutrophil % 66.7 % (47-70); Platelet Count 218 K/mm3 (150-450); RBC Distribution Width CV 13.8 % (11.6-14.6); Red Blood Count 2.77 M/mm3 (4.2-5.4); White Blood Count 5.6 K/mm3 (4.4-11.0)
[2024-02-29 06:55] LABS: International Normalized Ratio 1.5; Prothrombin Time (Protime)PT. 18.1 SECONDS (11.7-14.9)
[2024-02-29 07:09] LABS: ALB/GLOB Ratio 0.8 RATIO (0.9-2.4); AST(SGOT) 184 U/L (15-37); Alanine Aminotransfer ALT/SGPT 334 U/L (13-56); Albumin, Serum 1.9 g/dL (3.2-5.0); Alkaline Phosphatase 166 U/L (45-117); Anion Gap 5 (5-15); BUN 60 mg/dL (7-18); BUN/Creat Ratio 23.3 RATIO (10-20); Calcium,Total 8.3 mg/dL (8.5-10.1); Chloride 120 mmol/L (98-107); Creatinine, Serum 2.57 mg/dL (0.55-1.02); EST Glomerular Filtration Rate 19 mL/min (>60); Est Glom Filt Rate - Afr Amer 23 mL/min (>60); Estimated Creatinine Clearance 14.96 ml/min; Globulin 2.5 g/dL (2.2-4.2); Glucose 120 mg/dL (74-106); Potassium 3.4 mmol/L (3.5-5.1); Protein, Total 4.4 g/dL (6.4-8.2); Sodium Level 146 mmol/L (136-145)
[2024-02-29] MEDS: Ensure Plus High Protein 120 ML LIQUID PO (10:15)
[2024-02-29] MEDS: Piperacil/Tazobactam 3.375 GM in 0.9% Normal Saline (50mL MB+) 50 ML IV ×2 (10:15→21:09)
[2024-02-29] MEDS: amLODIPine 5 MG Tablet PO (10:16)
[2024-02-29 12:56] LABS: Hematocrit 25.1 % (37-47)
[2024-02-29] MEDS: Pantoprazole Sodium 40 MG Tablet PO (15:07)
[2024-02-29] MEDS: 0.9% Saline Lock 10 ML Syringe IV ×2 (15:07→21:09)
--- NOTE | 2024-02-29 15:57 | PCM.PN.HOSP ---
Reason for Visit Reason for Visit: Diagnoses Sepsis, unspecified organism (02/26/24) Metabolic encephalopathy (02/26/24) Hypotension, unspecified (02/26/24) Acute and subacute hepatic failure without coma (02/26/24) Rhabdomyolysis (02/26/24) Acute kidney failure, unspecified (02/26/24) Urinary tract infection, site not specified (02/26/24) Other symptoms and signs concerning food and fluid intake (02/26/24) Elevation of levels of liver transaminase levels (02/26/24) Personal history of other mental and behavioral disorders (02/26/24) Subjective Subjective Patient was seen and examined today, her liver enzymes have improved and her renal function has also improved. INR was 1.5 today Objective Data Objective Data Vital Signs: Vital Signs Temp Pulse Resp BP Pulse Ox O2 Del Method 97.7 F L 86 16 145/69 H 99 Room Air 02/29/24 15:02 02/29/24 15:47 02/29/24 15:02 02/29/24 15:02 02/29/24 15:02 02/29/24 15:48 Oxygen Delivery Method Room Air Weight: 50.9 kg Body Mass Index (BMI) 19.8 Intake & Output: Intake and Output for Last 24 Hours 02/27/24 02/28/24 02/29/24 23:59 23:59 23:59 Intake Total 3914.53 / 3914.53 1400 / 1400 Balance 3914.53 / 3914.53 1400 / 1400 Lab / Micro Data 02/29/24 12:40 02/29/24 06:22 Labs: Laboratory Results - last 24 hr 02/29/24 06:22: WBC 5.6, RBC 2.77 L, Hgb 7.9 L, Hct 24.5 L, MCV 88.4, MCH 28.5, MCHC 32.2, RDW Std Deviation 44.0 H, RDW Coeff of Ed 13.8, Plt Count 218, MPV 10.9, Immature Gran % (Auto) 0.700, Neut % (Auto) 66.7, Lymph % (Auto) 19.8, Hodgeman % (Auto) 8.5, Eos % (Auto) 3.6, Baso % (Auto) 0.7, Absolute Neuts (auto) 3.7, Absolute Lymphs (auto) 1.10, Nucleated RBC % 0, PT 18.1 H, INR 1.5, Sodium 146 H, Potassium 3.4 L, Chloride 120 H, Carbon Dioxide 22.0, Anion Gap 5, BUN 60 H, Creatinine 2.57 H, Estim Creat Clear Calc 14.96, Est GFR (MDRD) Af Amer 23 L, Est GFR (MDRD) Non-Af 19 L, BUN/Creatinine Ratio 23.3 H, Glucose 120 H, Calcium 8.3 L, Total Bilirubin 1.30 H, AST 184 H, ALT 334 H, Alkaline Phosphatase 166 H, Total Protein 4.4 L, Albumin 1.9 L, Globulin 2.5, Albumin/Globulin Ratio 0.8 L 02/29/24 12:40: Hgb 8.0 L, Hct 25.1 L Micro: Microbiology 02/26/24 19:39 Blood Culture (Wb) - Right Wrist Blood Culture - Preliminary No growth in 48 hours. 02/26/24 18:28 Blood Culture (Wb) - Right Forearm Blood Culture - Preliminary 02/26/24 18:45 Urine, Random Urine Culture - Final Escherichia coli Physical Exam Narrative alert and no apparent distress Constitutional Narrative: Patient appears cachectic General Appearance: cooperative and well developed Orientation / Consciousness: awake and oriented to person HEENT normocephalic, head/scalp atraumatic and moist oral mucous membranes Eyes PERRL, EOMs intact bilaterally and conjunctivae normal Neck supple, no JVD, thyroid normal and no carotid bruits General: trachea midline Resp normal respiratory effort, no retractions, no use of accessory muscles and clear to auscultation bilaterally Auscultation: Negative for rales, rhonchi or wheezes Cardio regular rate, regular rhythm, S1 normal heart sound, S2 normal heart sound, no murmurs, no rub and no gallops GI normal to inspection, nondistended, normoactive bowel sounds, soft to palpation, non-tender and non-distended Extremity no clubbing, cyanosis or edema Skin no rashes or lesions noted General Skin Exam: no breakdown Neuro CN's II-XII intact bilaterally, moves all extremities, no focal motor deficits and no sensory deficits noted Sensorium / Orientation: awake and alert Speech: speech normal Psych Psych Narrative: Patient has flat affect Assessment & Plan Assessment/Plan (1) Sepsis: PLAN: Plan 1. Sepsis secondary to urinary tract infection-patient's antibiotic coverage will be changed to oral today, I will stop her Zosyn #2 acute renal failure on a backdrop of probable chronic kidney disease stage IV-will recheck the patient's BMP tomorrow #3 elevated liver enzymes-possibly secondary to shock liver from sepsis, continue to monitor LFTs, patient is being seen by gastroenterology #4 Dementia-complicates care, management, recovery, and prognosis #5 anemia-etiology unclear, I will obtain iron studies and ferritin on the patient, CBC will be rechecked tomorrow rhabdomyolysis was ruled out Total clinical time spent by myself addressing the patient's medical issues, reviewing all of her data, and collaborating with patient's care team: 35 minutes Charges/Coding Visit Charges Inpatient E&M: 85034 Subs Hosp L2
[2024-02-29] MEDS: Cephalexin 250 MG Capsule PO (21:09)
[2024-03-01 03:35] VITALS: BP 163/75; PULSE 89; RESP 17; TEMP 36.4; O2SAT 98
[2024-03-01 05:12] VITALS: BMI 19.6
[2024-03-01] MEDS: Cephalexin 250 MG Capsule PO ×3 (06:02→20:46)
[2024-03-01 06:05] VITALS: BP 182/70; PULSE 77; RESP 16; TEMP 36.4; O2SAT 98
[2024-03-01] MEDS: amLODIPine 5 MG Tablet PO (06:19)
[2024-03-01 06:35] LABS: Absolute Lymphocyte Count 1.61 X10^3/uL (0.83-4.51); Absolute Neutrophil Count 5.6 X10^3/uL (2.0-7.7); Basophil# 0.04 X10^3/uL; Basophil% 0.5 % (0-1); Eosinophil# 0.22 X10^3/uL; Eosinophils% 2.7 % (0-5); Hematocrit 24.9 % (37-47); Hemoglobin 8.1 g/dL (12.0-15.0); Lymphocyte # 1.61 X10^3/ul (0.83-4.51); Mean Corp Hgb Conc 32.5 g/dL (32-36); Mean Corpuscular Hgb 28.7 pg (27.0-32.0); Mean Corpuscular Volume 88.3 fL (81-99); Monocyte# 0.54 X10^3/uL; Monocyte% 6.7 % (0-10); NRBC Flagged by Analyzer 0 % (0-5); Neutrophil % 69.4 % (47-70); Platelet Count 207 K/mm3 (150-450); RBC Distribution Width CV 13.8 % (11.6-14.6); RBC Distribution Width SD 43.1 fl (35.1-43.9); Red Blood Count 2.82 M/mm3 (4.2-5.4); White Blood Count 8.1 K/mm3 (4.4-11.0)
[2024-03-01 06:55] VITALS: BP 168/75; PULSE 80; RESP 16; TEMP 36.4; O2SAT 98
[2024-03-01 07:07] LABS: Anion Gap 4 (5-15); BUN 43 mg/dL (7-18); BUN/Creat Ratio 23.6 RATIO (10-20); Calcium,Total 8.2 mg/dL (8.5-10.1); Chloride 117 mmol/L (98-107); Creatinine, Serum 1.82 mg/dL (0.55-1.02); EST Glomerular Filtration Rate 29 mL/min (>60); Est Glom Filt Rate - Afr Amer 35 mL/min (>60); Estimated Creatinine Clearance 20.88 ml/min; Glucose 108 mg/dL (74-106); Sodium Level 145 mmol/L (136-145)
[2024-03-01 10:05] VITALS: BP 157/76; PULSE 84; RESP 16; TEMP 36.5; O2SAT 95
[2024-03-01] MEDS: Ensure Plus High Protein 120 ML LIQUID PO ×4 (10:11→20:47)
[2024-03-01] MEDS: Piperacil/Tazobactam 3.375 GM in 0.9% Normal Saline (50mL MB+) 50 ML IV ×2 (10:16→20:57)
[2024-03-01] MEDS: 0.9% Saline Lock 10 ML Syringe IV ×2 (10:16→20:48)
[2024-03-01 14:53] VITALS: BP 124/56; PULSE 83; RESP 14; TEMP 36.8; O2SAT 99
[2024-03-01 20:42] VITALS: BP 157/71; PULSE 81; RESP 18; TEMP 37.1; O2SAT 95
[2024-03-01] MEDS: 0.9% Normal Saline (100mL Bag) 100 ML 15 ML IV (20:53)
[2024-03-02] MEDS: Potassium Chloride Oral Tablet 20 MEQ 60 MEQ PO (01:53)
[2024-03-02 02:00] VITALS: BP 155/59; PULSE 94; RESP 18; TEMP 36.8; O2SAT 95
[2024-03-02 05:30] VITALS: BMI 18.7
[2024-03-02 06:00] VITALS: BP 145/71; PULSE 97; RESP 18; TEMP 36.8; O2SAT 95
[2024-03-02] MEDS: Cephalexin 250 MG Capsule PO ×2 (06:16→13:17)
--- NOTE | 2024-03-02 09:13 | CASEMGMT ---
Addendum entered by Bharati Jorgensen 03/02/24 10:18: Social Work [facility] can accept pt, SW let them know to start precert. SW let [facility] know pt going to a different facility. SW will send OT eval once it is competed. SHANNON Guevara Original Note: Social Work SW called daughter in regard to discharge plan, to confirm she would want pt to go to [facility]. Daughter asked for SW to make a referral to [facility]. SW explained will do this first thing this morning. OT is still pending. SW left a message asking OT to see pt today. SW sent referral to [facility] via [employer]. SW will continue to follow. Precert may not be able to be started until OT evaluation is completed. SHANNON Guevara
[2024-03-02 09:30] LABS: Hematocrit 25.9 % (37-47); Hemoglobin 8.3 g/dL (12.0-15.0); Mean Corpuscular Hgb 28.6 pg (27.0-32.0); Mean Corpuscular Volume 89.3 fL (81-99); Mean Platelet Vol. 10.6 fl (6.2-12.0); Platelet Count 199 K/mm3 (150-450); RBC Distribution Width CV 14.3 % (11.6-14.6); White Blood Count 9.8 K/mm3 (4.4-11.0)
[2024-03-02 09:45] LABS: International Normalized Ratio 1.2; Prothrombin Time (Protime)PT. 15.6 SECONDS (11.7-14.9)
[2024-03-02 09:47] LABS: Anion Gap 5 (5-15); BUN 28 mg/dL (7-18); BUN/Creat Ratio 18.4 RATIO (10-20); Calcium,Total 7.6 mg/dL (8.5-10.1); Chloride 116 mmol/L (98-107); Creatinine, Serum 1.52 mg/dL (0.55-1.02); EST Glomerular Filtration Rate 35 mL/min (>60); Est Glom Filt Rate - Afr Amer 43 mL/min (>60); Estimated Creatinine Clearance 23.86 ml/min; Glucose 107 mg/dL (74-106); Magnesium 1.3 mg/dL (1.6-2.6); Phosphorus 2.1 mg/dL (2.5-4.9); Potassium 3.8 mmol/L (3.5-5.1); Sodium Level 146 mmol/L (136-145)
[2024-03-02 09:53] VITALS: BP 155/87; PULSE 89; RESP 18; TEMP 36.4; O2SAT 95
[2024-03-02] MEDS: Ensure Plus High Protein 120 ML LIQUID PO ×2 (09:54→13:17)
[2024-03-02] MEDS: amLODIPine 5 MG Tablet PO (09:55)
--- NOTE | 2024-03-02 12:11 | PCM.PN.HOSP ---
Reason for Visit Reason for Visit: Diagnoses Sepsis, unspecified organism (02/26/24) Metabolic encephalopathy (02/26/24) Hypotension, unspecified (02/26/24) Acute and subacute hepatic failure without coma (02/26/24) Rhabdomyolysis (02/26/24) Acute kidney failure, unspecified (02/26/24) Urinary tract infection, site not specified (02/26/24) Other symptoms and signs concerning food and fluid intake (02/26/24) Elevation of levels of liver transaminase levels (02/26/24) Personal history of other mental and behavioral disorders (02/26/24) Objective Data Objective Data Vital Signs: Vital Signs Temp Pulse Resp BP Pulse Ox O2 Del Method 97.6 F L 89 18 155/87 H 95 Room Air 03/02/24 09:53 03/02/24 09:53 03/02/24 09:53 03/02/24 09:53 03/02/24 09:53 03/02/24 10:10 Oxygen Delivery Method Room Air Weight: 48 kg Body Mass Index (BMI) 18.7 Intake & Output: Intake and Output for Last 24 Hours 02/29/24 03/01/24 03/02/24 23:59 23:59 23:59 Intake Total 1800 / 1800 161 / 161 65 / 65 Balance 1800 / 1800 161 / 161 65 / 65 Lab / Micro Data 03/02/24 09:04 03/02/24 09:04 Labs: Laboratory Results - last 24 hr 03/02/24 09:04: WBC 9.8, RBC 2.90 L, Hgb 8.3 L, Hct 25.9 L, MCV 89.3, MCH 28.6, MCHC 32.0, RDW Std Deviation 45.0 H, RDW Coeff of Ed 14.3, Plt Count 199, MPV 10.6, PT 15.6 H, INR 1.2, Sodium 146 H, Potassium 3.8, Chloride 116 H, Carbon Dioxide 25.0, Anion Gap 5, BUN 28 H, Creatinine 1.52 H, Estim Creat Clear Calc 23.86, Est GFR (MDRD) Af Amer 43 L, Est GFR (MDRD) Non-Af 35 L, BUN/Creatinine Ratio 18.4, Glucose 107 H, Calcium 7.6 L, Phosphorus 2.1 L, Magnesium 1.3 L Micro: Microbiology 02/26/24 18:28 Blood Culture (Wb) - Right Forearm Blood Culture - Preliminary Paula steve 02/26/24 19:39 Blood Culture (Wb) - Right Wrist Blood Culture - Preliminary No growth in 48 hours. 02/26/24 18:45 Urine, Random Urine Culture - Final Escherichia coli
[2024-03-02] MEDS: Magnesium Sulfate 4gm/100mL 4 GM/100 ML IV.SOLN. IV (13:16)
[2024-03-02] MEDS: Na Biphos/Potassium Phosphate PACKET 1 PACKET PO (14:22)
--- NOTE | 2024-03-02 15:09 | PCM.TXEXTCAR ---
Diet Diet Order/Speech Therapy: 02/27/24 15:02 Diet: Regular - General Routine Orders/Code Status Routine Lab Work: BMP (Please recheck kidney function, magnesium and phosphorus levels in 3 to 5 days.) Code Status: Full Code DC O2, CPAP, BIPAP needs Home O2 Discharge instructions: No Therapies Weight Bearing: Full weight bearing Physical Therapy: Eval and Treat Occupational Therapy: Eval and Treat Problem/Diagnosis (1) Sepsis: Status: Acute Code(s): A41.9 - Sepsis, unspecified organism Plan Patient is a 78-year-old female who presented [facility] ED on 02/26/2024 with increasing confusion and poor p.o. intake. Hospital course as noted below. Patient discharged to SNF in stable condition on 03/02. 1. Sepsis secondary to E. coli UTI ? Environmental Systems Coordinator followed. Met sepsis criteria on admission with ANJU, mental status change, lactic acidemia and acute liver injury in setting of E. coli UTI. Blood pressure stable with IV fluid resuscitation, did not require pressors. Much improved during hospitalization on antibiotics. Will discharge on Keflex to complete 7-day course of antibiotics total, stop date 03/04. 2. Severe ANJU on CKD stage IIIb, resolved ? Creatinine 5.2 on admit, baseline around 1.5. Improved back to baseline by day of discharge with good urine output. 3. Acute liver injury secondary to ischemic hepatitis, resolving ? GI followed. Had significant liver injury on admit with INR 2.6, T. bili 2.50, AST 3827, ALT 1931, alk phos 281. Suspected secondary to ischemic hepatitis. Labs significantly improved during hospitalization, last INR 1.2 on day of discharge. 4. Acute metabolic encephalopathy, improved ? Presume secondary to sepsis on admit as noted above. Improved back to baseline during hospitalization. 5. Acute on chronic normocytic anemia ? Hemoglobin remained stable around 8 during hospitalization. Appears that previous baseline was around 9-10. Suspect primarily due to chronic kidney disease. B12 and folate normal. Iron studies showed anemia of chronic disease. 6. Acute on chronic debility in setting of dementia ? PT/OT/case management followed. Patient stable for discharge to SNF on 03/02. 7. Underweight BMI ? BMI 18.7 on admit. Presume secondary to poor p.o. intake in setting of dementia as noted above. Nutrition supplements added to meals while inpatient. 8. Hypertension, hyperlipidemia, history of TIA, history of bilateral carotid disease s/p bilateral carotid endarterectomy ? Continue home aspirin and statin. Started on amlodipine 5 mg daily during hospitalization with good improvement in blood pressure, will continue on discharge. 9. GERD ? Continue home PPI. 10. Hypophosphatemia ? Presume secondary to recent poor p.o. intake. Continue Phos-Nak 3 times daily on discharge. Repeat BMP with phosphorus level in 3 to 5 days on discharge. Total clinical time spent by myself addressing the patient's medical issues, reviewing all the data, and collaborating with patient's care team: 35 minutes. Allergies/Procedures Done in Hospital Allergies No Known Allergies Allergy (Verified 02/26/24 17:42) Procedures: EKG and - (CT brain, chest x-ray, CT abdomen pelvis) Type of Care/Length of Stay Estimated LOS: Convalescent Care Less Than 30 days Type of Care Needed: Skilled Rehab Potential: Fair Prognosis: Fair Additional Orders/Day of Discharge H&P will serve as current which was dated: 02/26/24 Day of Discharge: 03/02/24 Dietary and Speech Recommendations Dietitian Recommendations/Changes: Continue regular diet and 120ml ensure plus high protein 4x daily with medpass. Will monitor weight, as available. Discharge Plan Admission Admit Date/Time: 02/26/24 21:22 Primary Reason for Your Visit: Altered mentation and poor p.o. intake Attending Provider: Khari Rod Primary Care Provider: Rio Oconnor Consulting Providers: Tucker Tovar; Rio Ybarra Discharge Orders/Prescriptions Prescriptions: New cephalexin 250 mg Capsule 250 mg PO Q8 2 Days Qty: 0 0RF amlodipine 5 mg Tablet 5 mg PO DAILY 30 Days Qty: 0 0RF Ensure Plus High Protein 0.08 gram-1.5 kcal/mL Liquid 120 ml PO 4X/DAY Qty: 0 0RF potassium, sodium phosphates 280-160-250 mg Powder In Packet 1 packet PO TID Qty: 0 0RF Continued atorvastatin 80 MG tablet 80 mg PO DAILY aspirin 81 MG tablet,chewable 81 mg PO DAILY@0800 omeprazole 20 mg capsule,delayed release(DR/EC) 20 mg PO DAILY Patient Comments: Take 1 capsule by mouth 30 minutes before breakfast. Centrum Adult 50 Plus 80 mcg tablet,chewable 1 tab PO DAILY Referrals / Follow Up: Rio Oconnor MD [Primary Care Provider] - Disposition Disposition (needs filled in before D/C Order can be placed): [facility] Facility Charges/Coding Visit Charges Inpatient E&M: 74223 Disch Hosp >30min
--- NOTE | 2024-03-02 15:09 | PCM.DC.SUM ---
Providers Date of Admission: 02/26/24 Date of Discharge: 03/02/24 Primary Care Physician: Dr. Rio Oconnor MD Consultations 02/26/24 21:39 Consult: Test Development Engineer / Pulmonary Medicine Routine Consulting Provider: Intensivists/Pulmonary Med Reason for Consult: Sepsis with UTI, ARF, Acute Liver Failure and AMS. EMERGENT Consult: No Notified: Yes Date Notified: 02/27/24 Time Notified: 07:04 Method of Notification: Text 02/27/24 07:44 Consult: Gastroenterology Routine Consulting Provider: [facility] Reason for Consult: Acute Liver Injury EMERGENT Consult: No Notified: Yes Date Notified: 02/27/24 Time Notified: 07:44 Method of Notification: Text Reason For Visit: SEPSIS, UTI, ARF, ACUTE LIVER FAILURE & METABOLIC Diagnosis Discharge Diagnosis (1) Sepsis: Status: Acute Code(s): A41.9 - Sepsis, unspecified organism Medications at Discharge Home Medications aspirin 81 mg chewable tablet 81 mg PO DAILY@0800 heart health 11/08/18 atorvastatin 80 mg tablet 80 mg PO DAILY cholesterol 11/08/18 omeprazole 20 mg capsule,delayed release 20 mg PO DAILY GERD 02/18/23 multivitamin with minerals-folic acid 80 mcg chewable tablet (Centrum Adult 50 Plus) 1 tab PO DAILY supplement 02/28/24 amlodipine 5 mg tablet 5 mg PO DAILY 30 days #0 tabs 03/02/24 cephalexin 250 mg capsule 250 mg PO Q8 2 days #0 caps 03/02/24 food supplemt, lactose-reduced 0.08 gram-1.5 kcal/mL oral liquid (Ensure Plus High Protein) 120 ml PO 4X/DAY #0 mL 03/02/24 potassium, sodium phosphates 280 mg-160 mg-250 mg oral powder packet 1 packet PO TID #0 ea 03/02/24 Hospital Course Operations None Procedures EKG and - (CT brain, chest x-ray, CT abdomen pelvis) Summary of Care Provided Minutes Spent on Discharge: 35 Hospital Course: Patient is a 78-year-old female who presented [facility] ED on 02/26/2024 with increasing confusion and poor p.o. intake. Hospital course as noted below. Patient discharged to SNF in stable condition on 03/02. 1. Sepsis secondary to E. coli UTI ? Test Development Engineer followed. Met sepsis criteria on admission with ANJU, mental status change, lactic acidemia and acute liver injury in setting of E. coli UTI. Blood pressure stable with IV fluid resuscitation, did not require pressors. Much improved during hospitalization on antibiotics. Will discharge on Keflex to complete 7-day course of antibiotics total, stop date 03/04. 2. Severe ANJU on CKD stage IIIb, resolved ? Creatinine 5.2 on admit, baseline around 1.5. Improved back to baseline by day of discharge with good urine output. 3. Acute liver injury secondary to ischemic hepatitis, resolving ? GI followed. Had significant liver injury on admit with INR 2.6, T. bili 2.50, AST 3827, ALT 1931, alk phos 281. Suspected secondary to ischemic hepatitis. Labs significantly improved during hospitalization, last INR 1.2 on day of discharge. 4. Acute metabolic encephalopathy, improved ? Presume secondary to sepsis on admit as noted above. Improved back to baseline during hospitalization. 5. Acute on chronic normocytic anemia ? Hemoglobin remained stable around 8 during hospitalization. Appears that previous baseline was around 9-10. Suspect primarily due to chronic kidney disease. B12 and folate normal. Iron studies showed anemia of chronic disease. 6. Acute on chronic debility in setting of dementia ? PT/OT/case management followed. Patient stable for discharge to SNF on 03/02. 7. Underweight BMI ? BMI 18.7 on admit. Presume secondary to poor p.o. intake in setting of dementia as noted above. Nutrition supplements added to meals while inpatient. 8. Hypertension, hyperlipidemia, history of TIA, history of bilateral carotid disease s/p bilateral carotid endarterectomy ? Continue home aspirin and statin. Started on amlodipine 5 mg daily during hospitalization with good improvement in blood pressure, will continue on discharge. 9. GERD ? Continue home PPI. 10. Hypophosphatemia ? Presume secondary to recent poor p.o. intake. Continue Phos-Nak 3 times daily on discharge. Repeat BMP with phosphorus level in 3 to 5 days on discharge. Total clinical time spent by myself addressing the patient's medical issues, reviewing all the data, and collaborating with patient's care team: 35 minutes. Physical Exam Narrative alert and no apparent distress Constitutional Narrative: Patient appears cachectic General Appearance: cooperative and well developed Orientation / Consciousness: awake and oriented to person HEENT normocephalic, head/scalp atraumatic and moist oral mucous membranes Eyes PERRL, EOMs intact bilaterally and conjunctivae normal Neck supple, no JVD, thyroid normal and no carotid bruits General: trachea midline Resp normal respiratory effort, no retractions, no use of accessory muscles and clear to auscultation bilaterally Auscultation: Negative for rales, rhonchi or wheezes Cardio regular rate, regular rhythm, S1 normal heart sound, S2 normal heart sound, no murmurs, no rub and no gallops GI normal to inspection, nondistended, normoactive bowel sounds, soft to palpation, non-tender and non-distended Extremity no clubbing, cyanosis or edema Skin no rashes or lesions noted General Skin Exam: no breakdown Neuro CN's II-XII intact bilaterally, moves all extremities, no focal motor deficits and no sensory deficits noted Sensorium / Orientation: awake and alert Speech: speech normal Psych Psych Narrative: Patient has flat affect Weight / BMI Weight Weight: 48 kg Body Mass Index (BMI) 18.7 ABG / Lab / Microbiology Data 03/02/24 09:04 03/02/24 09:04 Laboratory: Laboratory Results - last 24 hr 03/02/24 09:04: WBC 9.8, RBC 2.90 L, Hgb 8.3 L, Hct 25.9 L, MCV 89.3, MCH 28.6, MCHC 32.0, RDW Std Deviation 45.0 H, RDW Coeff of Ed 14.3, Plt Count 199, MPV 10.6, PT 15.6 H, INR 1.2, Sodium 146 H, Potassium 3.8, Chloride 116 H, Carbon Dioxide 25.0, Anion Gap 5, BUN 28 H, Creatinine 1.52 H, Estim Creat Clear Calc 23.86, Est GFR (MDRD) Af Amer 43 L, Est GFR (MDRD) Non-Af 35 L, BUN/Creatinine Ratio 18.4, Glucose 107 H, Calcium 7.6 L, Phosphorus 2.1 L, Magnesium 1.3 L Microbiology: Microbiology 02/26/24 18:28 Blood Culture (Wb) - Right Forearm Blood Culture - Preliminary Winomara yaneliii 02/26/24 19:39 Blood Culture (Wb) - Right Wrist Blood Culture - Preliminary No growth in 48 hours. 02/26/24 18:45 Urine, Random Urine Culture - Final Escherichia coli D/C Instructions DC O2, CPAP, BIPAP Needs Home O2 Discharge instructions: No Meaningful Use Info Meaningful Use Meaningful Use Diagnoses (Choose all that apply): None applicable Ischemic Stroke Statin Dosing Therapy Reference: STATIN DOSE THERAPY REFERENCE: * Patients > 75 years receive moderate or high dose statin therapy. * Patients 75 years or YOUNGER should receive HIGH intensity statin dose unless contraindicated. You will be required to document reason for non-treatment if statin daily dose does not meet guidelines. HIGH DOSE STATIN THERAPY DAILY Atorvastatin > than or = to 40 mg Rosuvastatin > than or = to 20 mg Amlodipine + Atorvastatin > than or = to 2.5/40 mg Ezetimibe + Simvastatin 10/80 mg Simvastatin 80mg Discharge Plan Admission Admit Date/Time: 02/26/24 21:22 Primary Reason for Your Visit: Altered mentation and poor p.o. intake Attending Provider: Khari Rod Primary Care Provider: Rio Oconnor Consulting Providers: Tucker Tovar; Rio Ybarra Discharge Orders/Prescriptions Prescriptions: New cephalexin 250 mg Capsule 250 mg PO Q8 2 Days Qty: 0 0RF amlodipine 5 mg Tablet 5 mg PO DAILY 30 Days Qty: 0 0RF Ensure Plus High Protein 0.08 gram-1.5 kcal/mL Liquid 120 ml PO 4X/DAY Qty: 0 0RF potassium, sodium phosphates 280-160-250 mg Powder In Packet 1 packet PO TID Qty: 0 0RF Continued atorvastatin 80 MG tablet 80 mg PO DAILY aspirin 81 MG tablet,chewable 81 mg PO DAILY@0800 omeprazole 20 mg capsule,delayed release(DR/EC) 20 mg PO DAILY Patient Comments: Take 1 capsule by mouth 30 minutes before breakfast. Centrum Adult 50 Plus 80 mcg tablet,chewable 1 tab PO DAILY Referrals / Follow Up: Rio Oconnor MD [Primary Care Provider] - Disposition Disposition (needs filled in before D/C Order can be placed): Residential Facility Charges/Coding Visit Charges Inpatient E&M: 55467 Disch Hosp >30min
--- NOTE | 2024-03-02 15:21 | CASEMGMT ---
Social Work Pt was approved to go to [facility] today. JOHN texted physician, he will discharge pt today. SW called daughter Tiffanie to let her know, message left. JOHN will call back when SW has a discharge order and the discharge is set up. SHANNON Guevara
[2024-03-02 15:53] VITALS: BP 138/80; PULSE 80; RESP 18; TEMP 36.4; O2SAT 95
--- NOTE | 2024-03-02 15:57 | CASEMGMT ---
Pt is going to [facility] today. SW sent over all discharge instructions to [facility] via [employer]. SW completed hospital exemption in the [employer] system. SW set up ambulance for 6:30 w/Physicians. SW let pt's RN, pt and pt's daughter all know time of pickup. SW also sent a message to [facility] via [employer] letting them know the pickup time. Daughter had not told pt she was going to rehab, SW spoke w/pt and let her know, she is agreeable. No further needs, pt to [facility], skilled today. SHANNON Guevara
--- NOTE | 2024-03-02 16:47 | NURSING ---
This RN called and gave report to RONALD Watkins at the [facility].
[2024-03-02 23:07] LABS: Anti-Smooth Muscle ABS 7 Units (0-19); CMV Acute Antibody IgM < 30.0 AU/mL (0.0-29.9); Ceruloplasmin 21.8 mg/dL (19.0-39.0); Copper, Serum or Plasma 89 ug/dL (80-158); EBV Acute VCA IgM < 36.0 U/mL (0.0-35.9); EBV-VCA IgG 43.2 U/mL (0.0-17.9)
== END 2024-03-02 19:17 | DRG 871 ==
LOC: ED 19:58 → ICU 21:39 → PCU 02-28 09:55
PROVIDERS: Internal Medicine; Internal Medicine Critical Care Medicine; Internal Medicine Gastroenterology; Admitting Provider Internal Medicine; Emergency Provider Emergency Medicine; PCP Family Medicine; Visit Provider Hospitalist
DX: A41.51 Sepsis due to Escherichia coli [E. coli] (principal); G93.41 Metabolic encephalopathy; K72.00 Acute and subacute hepatic failure without coma; E87.20 Acidosis, unspecified; N18.4 Chronic kidney disease, stage 4 (severe); N17.9 Acute kidney failure, unspecified; Z68.1 Body mass index [BMI] 19.9 or less, adult; N39.0 Urinary tract infection, site not specified; D63.8 Anemia in other chronic diseases classified elsewhere; E83.01 Wilson's disease; E83.39 Other disorders of phosphorus metabolism; J44.9 Chronic obstructive pulmonary disease, unspecified; F03.90 Unspecified dementia, unspecified severity, without behavioral disturbance, psychotic disturbance, mood disturbance, and anxiety; I12.9 Hypertensive chronic kidney disease with stage 1 through stage 4 chronic kidney disease, or unspecified chronic kidney disease; K21.9 Gastro-esophageal reflux disease without esophagitis; E78.5 Hyperlipidemia, unspecified; E87.6 Hypokalemia; R65.20 Severe sepsis without septic shock; F41.9 Anxiety disorder, unspecified; E83.51 Hypocalcemia; Z79.52 Long term (current) use of systemic steroids; Z87.891 Personal history of nicotine dependence; R74.01 Elevation of levels of liver transaminase levels; Z79.82 Long term (current) use of aspirin; R63.6 Underweight; Z86.73 Personal history of transient ischemic attack (TIA), and cerebral infarction without residual deficits
CPT/HCPCS: 36415; 70450; 71045; 74176; 80048; 80053; 80074; 80143; 80307; 81001; 82077; 82140; 82330; 82390; 82525; 82550; 82607; 82746; 83516; 83605; 83615; 83690; 83735; 83970; 84100; 84443; 84484; 85014; 85018; 85025; 85027; 85610; 85730; 86645; 86664; 86665; 86695; 86696; 87040; 87077; 87086; 87088; 87186; 93005; 97110; 97162; 97166; 97530; 99285; J2020; P9612; A4216; J0612; J0696